=== PATIENT | male | born 1955 | race American Indian/Alaskan Native ===

== ENCOUNTER 2016-09-23 10:08 | Emergency (ER) | payer MEDICAID ==
[2016-09-23 10:15] VITALS: BP 145/49; PULSE 62; RESP 16; TEMP 98.1; O2SAT 95
--- NOTE | 2016-09-23 10:29 | EDPHY ---
H & P Stated Complaint: exacerbated chronic back pain lugging a propane tank last week Time Seen by Provider: 09/23/16 10:20 HPI/ROS: Chief complaint: Low back pain History of present illness: This is a 61-year-old male who presents to the emergency department for evaluation and treatment of low back pain. Patient reports the onset low back pain after dragging 100 lb propane tank through the snow last week. He believes he pulled his back at that time. Since then he has had persistent soreness. He is treating with ibuprofen but pain persists. He states he has a history of chronic back pain from a remote fall onto the back. This feels like a typical exacerbation. He denies other potential precipitating factors including no recent history of direct trauma. Further no report of fevers, or neurologic symptoms including no paresthesias, no weakness or paralysis, no bowel or bladder dysfunction. Review of systems: A 10 point review of systems was obtained and other than described above was negative - Personal History Current Tetanus/Diphtheria Vaccine: Unsure - Medical/Surgical History Hx Asthma: No Hx Chronic Respiratory Disease: Yes Hx Diabetes: No Hx Cardiac Disease: Yes Hx Renal Disease: No Hx Cirrhosis: No Hx Alcoholism: No Hx HIV/AIDS: No Hx Splenectomy or Spleen Trauma: No Other PMH: [place], COPD, psoriasis, hyperlipidemia, HTN,. hernia repair back prob - Social History Smoking Status: Former smoker Additional Social History: No history of IV drug abuse - Physical Exam Exam: General Appearance: Alert, nontoxic. Eyes: Pupils equal and round no injection. Respiratory: Chest is non tender, lungs are clear to auscultation. Cardiac: regular rate and rhythm Gastrointestinal: Abdomen is soft and non tender, no masses, bowel sounds normal. Musculoskeletal: Head is normocephalic, atraumatic. Neck is supple and non tender. The spine is nontender to palpation along its entire length. No crepitus, bony deformity or step-off. There is mild tenderness to the paraspinal muscles in the lumbar region bilaterally. Extremities have full range of motion and are non tender. Patient is ambulating without difficulty. Skin: No rashes or lesions. Neurological: Alert and oriented x4. Strength and sensation intact and symmetrical. Straight leg raise test is negative bilaterally. Constitutional: Initial Vital Signs Temperature (C) 36.7 C 09/23/16 10:12 Heart Rate 62 09/23/16 10:12 Respiratory Rate 16 09/23/16 10:12 Blood Pressure 145/49 H 09/23/16 10:12 O2 Sat (%) 95 09/23/16 10:12 O2 Delivery Mode Room Air Allergies/Adverse Reactions: No Known Allergies Allergy (Verified 09/23/16 10:10) Home Medications: Medication Instructions Recorded Albuterol [Proventil Inhaler HFA 1 puffs IH Q4 PRN 09/04/14 (*)] Aspirin EC [Aspirin EC 81 mg (*)] 81 mg PO DAILY 09/04/14 Fluticasone/Salmeter 250/50Mcg 1 puffs IH BID 09/04/14 [Advair 250/50 (*)] Metoprolol Succinate Xr [Toprol Xl 50 mg PO DAILY 09/04/14 50 mg (*)] Multivitamins [Multivitamin (*)] 1 each PO DAILY 09/04/14 Lisinopril [Zestril 10 mg (*)] 5 mg PO BID 11/12/14 Rosuvastatin Calcium [Crestor 5mg] 5 mg PO DAILY #30 11/14/14 amLODIPine BESYLATE [Norvasc 5 mg 5 mg PO DAILY #30 tab 11/14/14 (*)] Hydrocodone/APAP 5/325 [[place] 1 tab PO Q6H #10 tab 09/23/16 5/325 (*)] Medical Decision Making ED Course/Re-evaluation: Patient seen under the supervision of my secondary supervising physician Dr. Humberto Storey. Patient presents to the emergency department for evaluation of low back pain. Patient has a history of low back pain, this is typical in nature. He is nontoxic. Afebrile and vital signs are stable. He denies any neurologic symptoms. He has a nonfocal neurologic exam. I have offered an evaluation including x-rays, blood studies and urine. He has declined. I will treat him with a short course of pain medicine. He is asked to follow up with his primary care doctor for recheck. Strict return precautions are given. Patient voiced understanding and agreement with plan. Differential Diagnosis: Included but not limited to muscle strain or sprain, herniated intervertebral disc, bony fracture, unlikely cauda equina syndrome or abscess or other lesion Departure - Departure Disposition: Home, Routine, Self-Care Clinical Impression: Back pain Qualifiers: Back pain location: low back pain Chronicity: acute Back pain laterality: bilateral Sciatica presence: without sciatica Qualifier Code: (M54.5) Low back pain Condition: Good Instructions: Low Back Strain (ED) Additional Instructions: Follow-up with your primary care doctor this week for recheck You have been prescribed [place] for pain. [place] contains Tylenol, do not take extra Tylenol/acetaminophen/Apap with it. It is sedating. If symptoms worsen or new symptoms develop including the development of fever, worsening pain, numbness or tingling in the body, difficulty moving your extremities, difficulty controlling your bowel or bladder or other signs or symptoms return immediately to the emergency room Referrals: Albert Linder MD [Primary Care Provider] - As per Instructions Prescriptions: Hydrocodone/APAP 5/325 [[place] 5/325 (*)] 1 tab PO Q6H #10 tab
== END 2016-09-23 10:38 | disposition home or self-care (01) ==
DX: M54.5 Low back pain (principal); I25.2 Old myocardial infarction; J44.9 Chronic obstructive pulmonary disease, unspecified; I10 Essential (primary) hypertension; Z87.891 Personal history of nicotine dependence; Z79.82 Long term (current) use of aspirin

== ENCOUNTER 2016-10-09 10:07 | Emergency (ER) | payer MEDICAID ==
[2016-10-09] MEDS ORDERED: OXYCODONE/APAP 5/325 TAB PO ONE (10:22)
[2016-10-09] MEDS ORDERED: CYCLOBENZAPRINE 10 MG TAB PO ONE (10:23)
[2016-10-09 10:24] VITALS: RESP 18; TEMP 97.9
--- NOTE | 2016-10-09 10:25 | EDPHY ---
H & P HPI/ROS: CHIEF COMPLAINT: Left hip pain HISTORY OF PRESENT ILLNESS: multiple episodes of injury to the left hip over the past 3-4 weeks. The 1st time was a slip and twist injury. The 2nd time he fell on the hip. The 3rd when he was shoveling snow last night. He has a moderate to severe pain of the left hip. It is worse over the greater trochanter. Worse when ambulatory on palpation. Radiates into the buttock. No low back pain. No anesthesia or paresthesia anywhere. No weakness anywhere. No incontinence. No injury elsewhere. He has not yet had an x-ray but he has been evaluated for this. He is taking [id number] medications. No other associated complaints or modifying factors. REVIEW OF SYSTEMS: Ten systems reviewed and are negative unless otherwise noted in the HPI EXAMINATION General Appearance: Alert, no distress Head: normocephalic, atraumatic Eyes: Pupils equal and round, no conjunctival pallor or injection ENT, Mouth: Mucous membranes moist Neck: Normal inspection, supple, non-tender Respiratory: Lungs are clear to auscultation Cardiovascular: Regular rate and rhythm . No murmur pulses intact distally with 2+ DP and PT pulses Gastrointestinal: Abdomen is soft and nontender Back: non-tender, no bony abnormalities Neurological: A&O, nonfocal, normal gait Skin: Warm and dry, no rash Extremities: Nontender, no pedal edema Psychiatric: Mood and affect normal DIFFERENTIAL DIAGNOSES: Including but not limited to Contusion, strain, fracture, dislocation, trochanteric bursitis MDM: 10:20 a.m. multiple mechanical injuries involving the left hip over the past 3 weeks. He has had pain in this area on and off. He reaggravated this this morning and is now concerned about it. He has not yet had an x-ray of this area. He is neuro intact and has range of motion about the hip. X-ray has been ordered. 11:20 a.m. I have re-evaluated the patient. He is feeling somewhat better with the medication but still having too much difficulty ambulating on the hip. X-ray was read as normal. I have ordered a CT scan to rule out occult fracture. 12:00 p.m. notified by radiologist Dr. Nelson that there are no acute findings on CT scan of the hip. I have re-evaluated the patient at this time. He is ambulatory with pain but able to do so. He will be discharged home with pain medication, short course of muscle relaxant not to exceed 7 days. He is to follow up with his primary care physician and orthopedist for definitive care and for any further prescriptions for this. He is also to take anti-inflammatory over-the- counter as needed for this. ER precautions discussed. He is discharged home stable condition. SUPERVISION: This patient was independently evaluated without the aide of supervising physician. Source: Patient Exam Limitations: No limitations - Medical/Surgical History Hx Asthma: No Hx Chronic Respiratory Disease: Yes Hx Diabetes: No Hx Cardiac Disease: Yes Hx Renal Disease: No Hx Cirrhosis: No Hx Alcoholism: No Hx HIV/AIDS: No Hx Splenectomy or Spleen Trauma: No Other PMH: [place], COPD, psoriasis, hyperlipidemia, HTN,. hernia repair back prob - Social History Smoking Status: Former smoker Constitutional: Initial Vital Signs Temperature (C) 97.9 F 10/09/16 10:10 Heart Rate 64 10/09/16 10:10 Respiratory Rate 18 10/09/16 10:10 Blood Pressure 158/86 H 10/09/16 10:10 O2 Sat (%) 94 10/09/16 10:10 O2 Delivery Mode Room Air Allergies/Adverse Reactions: No Known Allergies Allergy (Verified 10/09/16 10:20) Home Medications: Medication Instructions Recorded Albuterol [Proventil Inhaler HFA 1 puffs IH Q4 PRN 09/04/14 (*)] Aspirin EC [Aspirin EC 81 mg (*)] 81 mg PO DAILY 09/04/14 Fluticasone/Salmeter 250/50Mcg 1 puffs IH BID 09/04/14 [Advair 250/50 (*)] Metoprolol Succinate Xr [Toprol Xl 50 mg PO DAILY 09/04/14 50 mg (*)] Multivitamins [Multivitamin (*)] 1 each PO DAILY 09/04/14 Lisinopril [Zestril 10 mg (*)] 5 mg PO BID 11/12/14 Rosuvastatin Calcium [Crestor 5mg] 5 mg PO DAILY #30 11/14/14 amLODIPine BESYLATE [Norvasc 5 mg 5 mg PO DAILY #30 tab 11/14/14 (*)] Hydrocodone/APAP 5/325 [[place] 1 tab PO Q6H #10 tab 09/23/16 5/325 (*)] Cyclobenzaprine [Flexeril 10 MG 10 mg PO TID PRN #15 tab 10/09/16 (*)] oxyCODONE HCL/ACETAMINOPHEN 1 each PO Q4-6PRN PRN #15 tablet 10/09/16 [Percocet 5-325 mg Tablet] Medical Decision Making - Data Points Medications Given: Discontinued Medications Cyclobenzaprine HCl (Flexeril) 10 mg PO EDNOW ONE Stop: 10/09/16 10:24 Last Admin: 10/09/16 10:31 Dose: 10 mg Oxycodone/Acetaminophen (Percocet 5/325) 1 tab PO EDNOW ONE Stop: 10/09/16 10:23 Last Admin: 10/09/16 10:30 Dose: 1 tab Departure - Departure Disposition: Home, Routine, Self-Care Clinical Impression: Hip pain, left Condition: Good Instructions: Hip Pain (ED), Crutch Instructions (ED) Additional Instructions: Follow-up with primary care physician and Orthopedics for definitive care. Will likely need an MRI in the next 1-2 weeks if no improvement or return to the ER for weakness, numbness, tingling Referrals: Patient,NotPresent [Unknown] - As per Instructions Albert Alarcon MD [Medical Doctor] - As per Instructions Prescriptions: Cyclobenzaprine [Flexeril 10 MG (*)] 10 mg PO TID PRN #15 tab PRN Reason: Spasms oxyCODONE HCL/ACETAMINOPHEN [Percocet 5-325 mg Tablet] 1 each PO Q4-6PRN PRN # 15 tablet PRN Reason: Pain, Breakthrough
[2016-10-09 12:36] VITALS: BP 128/86; PULSE 73; O2SAT 95
== END 2016-10-09 12:52 | disposition home or self-care (01) ==
LOC: EDUNIT#
DX: S79.912A Unspecified injury of left hip, initial encounter (principal); I25.2 Old myocardial infarction; J44.9 Chronic obstructive pulmonary disease, unspecified; I10 Essential (primary) hypertension; Z87.891 Personal history of nicotine dependence; Z79.82 Long term (current) use of aspirin; W18.39XA Other fall on same level, initial encounter; Y93.89 Activity, other specified

== ENCOUNTER 2017-01-20 13:22 | Inpatient (IN) | payer MEDICAID ==
[2017-01-20] MEDS ORDERED: ASPIRIN 81 MG CHEWABLE TAB PO ONE (13:43)
[2017-01-20] MEDS ORDERED: NITROGLYCERIN 0.4 MG BTL SL PRN ×2 (13:43→16:17)
[2017-01-20] MEDS ORDERED: NS 1,000 ML IV ONE (13:43)
--- NOTE | 2017-01-20 13:43 | EDPHY ---
H & P Stated Complaint: substernal cp since 829/cardiac hx HPI/ROS: HPI CHIEF COMPLAINT: Chest pain HISTORY OF PRESENT ILLNESS: This patient very pleasant 61-year-old male, presents emergency room by private vehicle for chest pain he tells me around 8 this morning developed chest pain is across his precordium and substernal, with associated nausea and diaphoresis. Patient tells me that he has persistent pain across his chest. Upon arrival here in emergency room I did Greet him and ER room 11. He had an immediate EKG upon arrival. His EKG shows an ST elevation inferior leads reciprocal changes with severe ST depression in anterior leads V1 V2 V3. Past Medical History: Coronary artery disease without stents, COPD, hypertension, hyperlipidemia Past Surgical History: No recent surgical history Social History: Denies daily use of drugs alcohol tobacco products Family History: Noncontributory ROS REVIEW OF SYSTEMS: A comprehensive 10 point review of systems is otherwise negative aside from elements mentioned in the history of present illness. Exam Constitutional triage nursing summary reviewed, vital signs reviewed, awake/ alert. Eyes normal conjunctivae and sclera, EOMI, PERRLA. HENT normal inspection, atraumatic, moist mucus membranes, no epistaxis, neck supple/ no meningismus, no raccoon eyes. Respiratory clear to auscultation bilaterally, normal breath sounds, no respiratory distress, no wheezing. Cardiovascular rate normal, regular rhythm, no murmur, no edema, distal pulses normal. Gastrointestinal soft, non-tender, no rebound, no guarding, normal bowel sounds, no distension, no pulsatile mass. Genitourinary no CVA tenderness. Musculoskeletal no midline vertebral tenderness, full range of motion, no calf swelling, no tenderness of extremities, no meningismus, good pulses, neurovascularly intact. Skin pink, warm, & dry, no rash, skin atraumatic. Neurologic awake, alert and oriented x 3, AAOx3, moves all 4 extremities equally, motor intact, sensory intact, CN II-XII intact, normal cerebellar, normal vision, normal speech. Psychiatric normal mood/affect. Heme/Lymph/Immune no lymphadenopathy. Differential diagnosis includes but is not limited to: ACS, atypical chest pain , pneumothorax, pneumonia, pulmonary embolism, aortic dissection, congestive heart failure, tumor, musculoskeletal pain, esophageal pain, GERD, peptic ulcer disease, pancreatitis Medical Decision Making: Plan for this patient this patient shows an ST elevation PR. Plan for immediate cardiac catheterization with Dr. Hernandez. Re-evaluation: EKG interpretation by me on record in [employer] system. Impression time of EKG 13 45 this shows an acute ST-elevation PR inferior leads with reciprocal ST depression V1 V2 V3 down the anterior leads. This an acute myocardial infarction ST elevation PR. 1353: Cardiac catheterization lab has been activated. STEMI alert has been activated. Dr. Hernandez is at bedside. Patient be taken to the lab nurse for emergent cardiac catheterization for his ST elevation PR. Critical Care: Total Critical Care Time Spent Managing this Patient: 30Minutes. This time was spent Exclusively with this patient. This Care was exclusive of procedures. The Organ System/life at risk was cardiac This Patient was in Critical Condition because ST elevation PR. Source: Patient - Personal History Current Tetanus/Diphtheria Vaccine: No - Medical/Surgical History Hx Asthma: No Hx Chronic Respiratory Disease: Yes Hx Diabetes: No Hx Cardiac Disease: Yes Hx Renal Disease: No Hx Cirrhosis: No Hx Alcoholism: No Hx HIV/AIDS: No Hx Splenectomy or Spleen Trauma: No Other PMH: [place], COPD, psoriasis, hyperlipidemia, HTN,. hernia repair back prob - Social History Smoking Status: Former smoker Constitutional: Initial Vital Signs Temperature (C) 36.6 C 01/20/17 13:24 Heart Rate 93 01/20/17 13:24 Respiratory Rate 20 01/20/17 13:24 Blood Pressure 129/82 H 01/20/17 13:24 O2 Sat (%) 98 01/20/17 13:24 O2 Delivery Mode Room Air Allergies/Adverse Reactions: No Known Allergies Allergy (Verified 01/20/17 13:23) Home Medications: Medication Instructions Recorded Albuterol [Proventil Inhaler HFA 1 puffs IH Q4 PRN 09/04/14 (*)] Aspirin EC [Aspirin EC 81 mg (*)] 81 mg PO DAILY 09/04/14 Fluticasone/Salmeter 250/50Mcg 1 puffs IH BID 09/04/14 [Advair 250/50 (*)] Metoprolol Succinate Xr [Toprol Xl 50 mg PO DAILY 09/04/14 50 mg (*)] Multivitamins [Multivitamin (*)] 1 each PO DAILY 09/04/14 Lisinopril [Zestril 10 mg (*)] 5 mg PO BID 11/12/14 Rosuvastatin Calcium [Crestor 5mg] 5 mg PO DAILY #30 11/14/14 amLODIPine BESYLATE [Norvasc 5 mg 5 mg PO DAILY #30 tab 11/14/14 (*)] Hydrocodone/APAP 5/325 [[place] 1 tab PO Q6H #10 tab 09/23/16 5/325 (*)] Cyclobenzaprine [Flexeril 10 MG 10 mg PO TID PRN #15 tab 10/09/16 (*)] oxyCODONE HCL/ACETAMINOPHEN 1 each PO Q4-6PRN PRN #15 tablet 10/09/16 [Percocet 5-325 mg Tablet] Departure - Departure Disposition: [facility] Inpatient Acute Clinical Impression: STEMI (ST elevation myocardial infarction) Qualifiers: Involved coronary artery: unspecified coronary artery Qualified Code(s): I21.3 - ST elevation (STEMI) myocardial infarction of unspecified site Condition: Critical Referrals: NONE *PRIMARY CARE P,. [Primary Care Provider] - As per Instructions
[2017-01-20] MEDS ORDERED: LIDOCAINE 1% 300 MG/30 ML SDV ONE ×2 (13:50→14:32)
[2017-01-20] MEDS ORDERED: MIDAZOLAM 2 MG/2 ML VIAL ONE ×4 (13:51→14:38)
[2017-01-20] MEDS ORDERED: fentaNYL 100 MCG/2 ML INJ ONE (13:51)
[2017-01-20] MEDS ORDERED: IOPAMIDOL (ISOVUE-370) 150 ML BTL IV ONE ×2 (13:52→15:31)
[2017-01-20 13:56] LABS: % IMMATURE GRANULYOCYTES 0.5 % (0.0-1.1); ABSOLUTE IMMATURE GRANULOCYTES 0.06 10^3/uL (0.00-0.10); ADD DIFF? NO; ADD MORPH? NO; ADD SCAN? NO; ATYPICAL LYMPHOCYTE FLAG 0 (0-99); FRAGMENT RBC FLAG 0 (0-99); HEMATOCRIT 48.6 % (40.0-51.0); HEMOGLOBIN 17.3 g/dL (13.7-17.5); LEFT SHIFT FLG 0 (0-99); LIPEMIA HEMOLYSIS FLAG 90 (0-99); MEAN CELL HEMOGLOBIN 33.5 pg (27.9-34.1); MEAN CELL HEMOGLOBIN CONCENTR. 35.6 g/dL (32.4-36.7); MEAN CELL VOLUME 94.2 fL (81.5-99.8); PLATELET CLUMPS FLAG 0 (0-99); PLATELET COUNT 319 10^3/uL (150-400); RED BLOOD CELL COUNT 5.16 10^6/uL (4.40-6.38); RED CELL DISTRIBUTION WIDTH 13.5 % (11.5-15.2)
--- NOTE | 2017-01-20 13:59 | CPEKG ---
Heart Rate: 84 RR Interval: 714 P-R Interval: 196 QRSD Interval: 100 QT Interval: 336 QTC Interval: 398 P Doyline: 60 QRS Doyline: 90 T Wave Doyline: 94 EKG Severity - ABNORMAL ECG - EKG Impression: SINUS RHYTHM EKG Impression: MULTIFORM VENTRICULAR PREMATURE COMPLEXES EKG Impression: INFEROPOSTERIOR INFARCT, ACUTE Electronically Signed By: Max Chopra 23-Jan-2017 12:05:23
[2017-01-20 14:06] LABS: INR 0.94 (0.83-1.16); PROTIME(PATIENT) 12.5 SEC (12.0-15.0)
[2017-01-20 14:07] LABS: APTT 25.8 SEC (23.0-38.0)
[2017-01-20 14:09] LABS: ALANINE AMINOTRANSFERASE 44 IU/L (21-72); ALKALINE PHOSPHATASE 75 IU/L (38-126); ANION GAP 13 mEq/L (8-16); ASPARTATE AMINOTRANSFERASE 55 IU/L (17-59); BILIRUBIN,TOTAL 0.9 mg/dL (0.1-1.4); BILIRUBIN-CONJUGATED 0.4 mg/dL (0.0-0.5); BILIRUBIN-UNCONJUGATED 0.5 mg/dL (0.0-1.1); CALCIUM 10.1 mg/dL (8.5-10.4); CARBON DIOXIDE 20 mEq/l (22-31); CHLORIDE 104 mEq/L (97-110); CREATININE 1.3 mg/dL (0.7-1.3); GLOMERULAR FILTRATION RATE 56; GLUCOSE 127 mg/dL (70-100); MAGNESIUM 2.3 mg/dL (1.6-2.3); POTASSIUM 4.9 mEq/L (3.5-5.2); SODIUM 137 mEq/L (134-144); TOTAL PROTEIN 8.3 g/dL (6.3-8.2)
[2017-01-20] MEDS ORDERED: NITROGLYCERIN 1,500 MCG/15 ML VIAL MISC ONE (14:17)
[2017-01-20] MEDS ORDERED: BIVALIRUDIN 250 MG/5 ML VIAL IV ONE ×2 (14:17→15:18)
[2017-01-20] MEDS ORDERED: ATROPINE SULFATE 1 MG/10 ML SYR ONE ×2 (14:19→14:25)
[2017-01-20 14:20] LABS: CK-MB INTERPRETATION NEGATIVE (NEGATIVE); TROPONIN I 0.166 ng/mL (0-0.034)
[2017-01-20] MEDS ORDERED: DOPamine/DEXTROSE/250 ML BAG IV ONE (14:20)
[2017-01-20] MEDS ORDERED: EPINEPHrine 1 MG/10 ML SYR IVP ONE ×3 (14:31→15:27)
[2017-01-20] MEDS ORDERED: ONDANSETRON 4 MG/2 ML VIAL ONE (14:36)
[2017-01-20] MEDS ORDERED: FLUMAZENIL 0.5 MG/5 ML MDV IVP ONE (14:43)
[2017-01-20] MEDS ORDERED: CALCIUM CHLORIDE 1 GM/10 ML INJ ONE (15:00)
[2017-01-20] MEDS ORDERED: ETOMIDATE 40 MG/20 ML INJ ONE (15:00)
[2017-01-20] MEDS ORDERED: PROPOFOL 200 MG/20 ML VIAL ONE (15:02)
[2017-01-20] MEDS ORDERED: VECURONIUM BROMIDE 10 MG VIAL ONE (15:05)
--- NOTE | 2017-01-20 15:09 | GHP ---
[f rep st] HISTORY AND PHYSICAL DATE OF ADMISSION: 01/20/2017 INDICATIONS: Acute inferior wall myocardial infarction. HISTORY OF PRESENT ILLNESS: The patient is a pleasant 61-year-old male. He has known coronary xuan ry disease. He has a history of a distant myocardial infarction. Previous angiography performed at this institution several years ago, in October of 2014, demonstrated an occluded collateralized right coronary artery with intermediate disease in the LAD and circumflex distributions. Additionally, joanna salguero has a history of hypertension, hyperlipidemia, and COPD. He was doing well until earlier today. He developed the abrupt onset of precordial chest discomfort. This was graded 10/10 in intensity. It had started about 8 o'clock this morning. At that time, he was at rest. He came to the emergenc y department, arrival time was 1:31. His initial ECG demonstrated sinus rhythm at 84 beats per anum te with 3.[address] elevation with anterolateral reciprocal changes. PAST MEDICAL HISTORY: 1. Coronary artery disease as described above. 2. Hypertension. 3. Hyperlipidemia. 4. COPD. 5. Psoriasis. ALLERGIES: None. MEDICATIONS: Include aspirin, rosuvastatin, metoprolol, and lisinopril as well as amlodipine. He t ook all of these medications today. FAMILY HISTORY: Apparently, his mother had coronary artery disease. SOCIAL HISTORY: Does drink heavily. He admits to 7 drinks on most days. He is a nonsmoker with oc casional marijuana use. He lives up in [place]. He is on disability currently. REVIEW OF SYSTEMS: Otherwise negative with the exception of the above positives. PAST SURGICAL HISTORY: Significant only for previous stenting and prior hernia repair. PHYSICAL EXAMINATION: VITAL SIGNS: Blood pressure 118/74 with a mean of 88, room air saturations o f 98%. Heart rate 93, and respiratory rate 16. GENERAL: He does not appear to be in acute distres s. At the time of my physical examination, he was pain-free. HEENT: No jugular venous distention, no adenopathy or thyromegaly. RESPIRATORY: He is breathing easily, using no accessory muscles. O n auscultation, he has clear lung henao bilaterally. CARDIAC: Precordial inspection is unremarkab le. PMI is nondisplaced. On auscultation, he has a regular rate and rhythm with a 1/6 holosystolic murmur at the left sternal border. ABDOMEN: Soft, nontender, he has normoactive bowel sounds with out masses, hepatosplenomegaly or palpable aorta. EXTREMITIES: Well perfused, warm and dry. He abad s no lower extremity edema. NEUROLOGIC: He is alert, oriented, with a pleasant mood and affect. DATABASE: His ECG is as noted above. IMPRESSION: The patient is 61 years old. He presents with an acute myocardial infarction. PLAN: Is to take him emergently to cardiac catheterization. /[id number]/MODL
--- NOTE | 2017-01-20 15:15 | EDPHY ---
Inpatient Procedure Narrative: 1511: I was asked to come and evaluate the patient cardiac catheterization suite for emergent intubation. The patient was getting a cardiac catheterization he was noted to be in V-tach and was minimally responsive. They halted the cardiac catheterization procedure and the patient was emergently intubated by myself. RSI medications were given. Was given 20 mg IV etomidate. A 7.0 endotracheal tube was passed with direct visualization of the cords with a MAC 4 blade. This patient tolerated this procedure well. Tube was confirmed bilateral breath sounds. Humidified air. Good pulse ox. Chest x-ray is pending at this time. I did have direct visualization of the tube passing the cords. Critical Care: Total Critical Care Time Spent Managing this Patient: 30 Minutes. This time was spent Exclusively with this patient. This Care was exclusive of procedures. The Organ System/life at risk was resp failure This Patient was in Critical Condition because cardiopulmonary failure
[2017-01-20] MEDS ORDERED: EPTIFIBATIDE 20 MG/10 ML VIAL IVP ONE (15:18)
[2017-01-20] MEDS ORDERED: EPTIFIBATIDE 200 MG/100 ML BOTTLE IV ONE (15:18)
[2017-01-20] MEDS ORDERED: EPTIFIBATIDE 100 ML IV SCH (15:30)
[2017-01-20] MEDS ORDERED: PHENYLEPHRINE 10 MG/ML SDV ONE (15:36)
[2017-01-20] MEDS ORDERED: PHENYLEPHRINE HCL 100 MCG/ML SYR ONE (15:36)
[2017-01-20 15:59] LABS: BASE EXCESS -14.5 mEq/L (-2.5-2.5); BICARBONATE 16 mEq/L (22-26); MEASURED OXYGEN SATURATION 74 % (92-95); PCO2 55 mmHg (34-38); PO2 58 mmHg (65-75); TCO2 17 mEq/L (23-27)
[2017-01-20 16:00] LABS: END TIDAL CO2 27; O2 CONCENTRATIION 100 % (0-100); P/F RATIO 58 RATIO; PATIENT RATE 16; SIMV YES
[2017-01-20] MEDS ORDERED: NOREPINEPHRINE/NS 500 ML IV ONE (16:00)
[2017-01-20] MEDS ORDERED: PHENYLEPHRINE HCL 50 MG in NS 250 ML IV SCH (16:00)
[2017-01-20 16:01] LABS: PRESSURE SUPPORT 7
[2017-01-20] MEDS ORDERED: ASPIRIN EC 325 MG TAB PO ONE (16:17)
[2017-01-20] MEDS ORDERED: TICAGRELOR 90 MG TAB PO ONE ×2 (16:17→16:27)
[2017-01-20] MEDS ORDERED: TEMAZEPAM 15 MG CAP PO PRN (16:17)
[2017-01-20] MEDS ORDERED: ATROPINE SULFATE 1 MG/10 ML SYR IVP PRN (16:17)
[2017-01-20] MEDS ORDERED: ONDANSETRON 4 MG/2 ML VIAL IVP PRN (16:17)
[2017-01-20] MEDS ORDERED: HEPARIN 10,000 UNIT/10 ML MDV IVP PRN (16:18)
[2017-01-20 16:29] LABS: IONIZED CALCIUM 1.08 MMOL/L (1.12-1.30)
--- NOTE | 2017-01-20 16:32 | PDDXCAT ---
Diagnostic Cath Note - . Date: 01/20/17 Knifeman: Diane Pedicurist: Mary Indication: other (Acute, inferior wall ST-elevation myocardial infarction.) - Procedure Access: right groin Procedure: coronary angiography - Materials Left Heart Cath size: 6F Left Heart Cath materials: standard multipack (JL4, JR4, pigtail) - Findings-Left Heart Catheterization LM: Large caliber vessel with normal in appearance with appropriate bifurcation into the LAD and circumflex distribution. LAD: Large caliber transapical vessel. 2 individual diagonal branches identified. D1 is a small vessel with an ostial 50% lesion. D2 is a large caliber vessel with a mid 50% stenosis. The remainder of the LAD demonstrates luminal irregularities. LCX: 100% proximally occluded with the appearance of thrombus. RCA: Chronic occlusion. Collateralized from the left system. This is known from previous angiography. Complications: None. Estimated blood loss: <50ml Assessment: 1. Acute inferior wall myocardial infarction. 2. Culprit vessel is the circumflex which is 100% proximally occluded with the appearance of thrombus. The patient has a known chronic occlusion of the right coronary artery again demonstrated on this study. 3. Shortly after injection of left main system the patient developed high-grade AV block and cardiogenic shock. 4. Interventional Cardiology was emergently consulted for percutaneous intervention. Plan: As above. Intervention: See the separately dictated note for the intervention of the circumflex coronary artery. Patient Problems: Problems Problem Status Onset STEMI (ST elevation myocardial infarction) Acute Spell of dizziness Acute
[2017-01-20 16:38] LABS: BASE EXCESS -8.9 mEq/L (-2.5-2.5); BICARBONATE 17 mEq/L (22-26); HEMOGLOBIN ABG 14.6 gm/dL (14.5-17.3); IONIZED CALCIUM 1.08 MMOL/L (1.12-1.30); MEASURED OXYGEN SATURATION 83 % (92-95); PCO2 38 mmHg (34-38); PO2 57 mmHg (65-75); SODIUM ABG 133 mEq/L (137-146); TCO2 18 mEq/L (23-27)
[2017-01-20 16:44] LABS: O2 CONCENTRATIION 100 % (0-100); P/F RATIO 57 RATIO; PATIENT RATE 24; SIMV YES
[2017-01-20 16:45] LABS: PRESSURE SUPPORT 7
[2017-01-20] MEDS ORDERED: ALTEPLASE 2 MG VIAL IVP PRN (17:07)
[2017-01-20] MEDS ORDERED: FUROSEMIDE 40 MG/4 ML VIAL IVP ONE ×2 (17:08→19:45)
--- NOTE | 2017-01-20 17:29 | CPIP ---
[f rep st] INVASIVE CARDIAC PROCEDURE DATE OF PROCEDURE: 01/20/2017 PROCEDURES: 1. Coronary angiography. 2. Stenting of circumflex coronary artery. 3. Thrombectomy of circumflex coronary artery. 4. Placement of intra-aortic balloon pump. 5. Placement of temporary pacemaker wire. INDICATION: 1. Acute inferior ST-segment elevation myocardial infarction. 2. Cardiogenic shock. 3. Heart block access and coronary angiography access and coronary angiography was performed by Dr. Jasper Contreras. Coronary angiography was notable for a MACHINE GREASER of the right coronary artery as well as a n acute occlusion of the circumflex coronary artery. I was consulted to perform percutaneous stock ry intervention on the circumflex coronary artery. PERCUTANEOUS CORONARY INTERVENTION OF THE CIRCUMFLEX CORONARY ARTERY: A 6-Kazakh EBU 3.5 catheter w as advanced through the left main coronary artery and images obtained. The left main coronary arter y bifurcated into an LAD and circumflex coronary arteries. The left main coronary artery appeared n ormal. The circumflex coronary artery was 100% occluded in the mid vessel suggestive of acute throm botic occlusion. A Luge wire was placed in the distal vessel and position verified by angiography. The lesion was pre-dilated with a 2.5 x 12 Emerge balloon. Followup angiography demonstrated reduc ed EDWIN flow and evidence of thrombus burden. A Pronto catheter was then used to perform thrombecto my. Post-thrombectomy we had druze of EDWIN-3 flow with significant residual stenosis in the m id circumflex coronary artery. A 2.5 x 12 Synergy drug-eluting stent was then placed across the les ion and deployed. Followup angiography demonstrated EDWIN-3 flow. No residual stenosis. At this ti va, the patient proceeded to pulseless electrical activity. CPR was initiated, followed by intubati on. Angiography postresuscitative measures demonstrated thrombus burden in the left main and circum flex coronary arteries with EDWIN-1 flow in the circumflex coronary artery. Thrombectomy was then pe rformed on the left main and circumflex coronary artery followed by initiation of Integrilin therapy . A second Luge wire was placed in the distal circumflex coronary artery. The first Luge wire was then withdrawn and thrombectomy once again performed. The patient had EDWIN-3 flow in the circumflex coronary artery, had EDWIN-3 flow in the proximal OM2 coronary artery, and in the mid OM2 coronary a rtery and the distal OM2 coronary artery had EDWIN-2 flow. Placement of intra-aortic balloon pump. An intra-aortic balloon pump was placed secondary to hemodynamic instability. The 6-Kazakh sheath w as exchanged for an 8-Kazakh sheath via exchange wire technique. Intra-aortic balloon pump was adva nced from the right common femoral artery into the aorta and position verified by angiography. Intr a-aortic balloon pump was initiated with stabilization of hemodynamics. Temporary pacemaker wire pl acement. A 5-Kazakh introducer sheath was placed selectively into the right common femoral vein via modified Seldinger technique. A temporary pacemaker wire was advanced into the right ventricle unt il capture obtained. COMPLICATIONS: None. CONCLUSIONS: 1. 2-vessel coronary artery disease. 2. Status post successful percutaneous coronary intervention of the circumflex coronary artery sherrill Henao drug-eluting stent. 3. Status post successful placement of intra-aortic balloon pump. 4. Status post successful placement of temporary pacemaker wire. /[id number]/MODL
[2017-01-20 17:44] LABS: BICARBONATE 14 mEq/L (22-26); MEASURED OXYGEN SATURATION 82 % (92-95); PCO2 37 mmHg (34-38); PO2 60 mmHg (65-75); TCO2 15 mEq/L (23-27)
[2017-01-20 17:50] LABS: O2 CONCENTRATIION 100 % (0-100); P/F RATIO 60 RATIO; SIMV YES
[2017-01-20 17:51] LABS: END TIDAL CO2 37; PATIENT RATE 24; PRESSURE SUPPORT 7
[2017-01-20] MEDS: fentaNYL/NACL 100 ML IV SCH (18:00)
--- NOTE | 2017-01-20 18:10 | GCON ---
[f rep st] CONSULTATION PULMONARY/CRITICAL CARE CONSULTATION DATE OF CONSULTATION: 01/20/2017 REFERRING PHYSICIAN: Max Hernandez MD REASON FOR REFERRAL: Evaluation and management of acute hypoxemic and hypercapnic respiratory failu re. HISTORY: The patient is a 61-year-old male with a known history of coronary artery disease status p ost myocardial infarction with known chronically occluded right coronary artery. Today, he develope d acute chest pain. He presented to the emergency department. He had ST elevations and was taken t o catheterization lab, where he was found to have an occluded circumflex. This was stented by Dr. Marj Ordoñez. In the course of the procedure, the patient also developed a clot in the left main, which wa s suctioned out. The course in the catheterization lab was quite russ, with 2 arrests requiring br ief periods of CPR. The patient was intubated and started on epinephrine. A pacemaker was also aman suyapa, followed by an intra-aortic balloon pump. PAST MEDICAL HISTORY: 1. Coronary artery disease. 2. Hypertension. 3. COPD. 4. Psoriasis. MEDICATIONS: At the time of admission include aspirin, rosuvastatin, metoprolol, lisinopril, amlodi pine. ALLERGIES: None. SOCIAL HISTORY: The patient drinks heavily, about 7 drinks most days. He does not smoke. He is on disability. FAMILY HISTORY: Unremarkable. REVIEW OF SYSTEMS: Unobtainable. PHYSICAL EXAMINATION: GENERAL: The patient is intubated and sedated. He has received paralytics a s well as sedation. His blood pressure is 110/70 with a heart rate of 120. Oxygen saturations are 86% on 100% oxygen. He is afebrile. HEENT: Normocephalic and atraumatic. No icterus. NECK: No JVD. Trachea is midline. CHEST: He has rales bilaterally. CARDIAC: Regular, tachycardia, withou t murmur. ABDOMEN: Soft, nontender. Bowel sounds are present. EXTREMITIES: No clubbing or cyano sis. He has a mild livedo pattern on his skin peripherally. There is no edema. NEURO: The patien t is unresponsive, although he is starting to have some myoclonic twitching. LABORATORY: White blood count 13.3 with a hemoglobin of 17.3, platelet count is 319. Chemistry katelyn up is remarkable for a BUN of 29 with a creatinine of 1.3, ionized calcium is 1.08. Troponin is 0.1 7, BNP is 313. Glucose is 127. Arterial blood gas shows a pH of 7.27, up from 7.08. PO2 is 57, CO 2 is 38, and bicarbonate is 18 on IMV with a rate of 24, tidal volume of 600, and 100% oxygen with P EEP of 10. Chest x-ray shows extensive diffuse bilateral alveolar interstitial infiltrates consiste nt with edema. The endotracheal tube is appropriately positioned. Images reviewed by me. ASSESSMENT: 1. Status post acute myocardial infarction with stenting. 2. Brief arrest during stenting. 3. Acute hypoxemic and hypercapnic respiratory failure. This is likely on the basis of cardiogenic shock, now with extensive pulmonary edema after receiving 3 L of fluids. His oxygenation is margin al despite 100% oxygen. 4. Tachycardia. This is likely a response to his acute illness as well as pressors. He was on epi nephrine, but is now on norepinephrine and phenylephrine. RECOMMENDATIONS: Continue mechanical ventilation as well as postprocedure care. I will try to incr ease his PEEP to see if he tolerates that. I will also give him some Lasix to try to help reduce hi s pulmonary edema. His status is quite tenuous and his prognosis is guarded. 40 minutes of critical care time, adjusting critical care time after I was called, asked to see the patient for his severe hypoxemia refractory to intubation. /[id number]/MODL
[2017-01-20 18:22] LABS: INR 3.55 (0.83-1.16); PROTIME(PATIENT) 36.1 SEC (12.0-15.0)
[2017-01-20] MEDS ORDERED: PROPOFOL/EMULSION 1,000 MG/100 ML BOTTLE IV ONE (18:29)
[2017-01-20] MEDS: PROPOFOL/EMULSION 100 ML IV SCH (18:30)
[2017-01-20] MEDS ORDERED: fentanYL/NACL/100 ML BAG IV ONE (18:33)
[2017-01-20] MEDS ORDERED: NA BICARBONATE 50 MEQ/50 ML VIAL ONE (18:39)
[2017-01-20] MEDS ORDERED: SODIUM BICARBONATE 50 MEQ/50 ML SYR IVP ONE (18:45)
[2017-01-20 18:58] LABS: APTT 116.4 SEC (23.0-38.0)
[2017-01-20] MEDS ORDERED: D50W 25 GM/50 ML SYR IVP PRN (19:04)
[2017-01-20] MEDS ORDERED: D5W 1,000 ML IV SCH (19:04)
[2017-01-20 19:12] LABS: BASE EXCESS -8.6 mEq/L (-2.5-2.5); BICARBONATE 16 mEq/L (22-26); MEASURED OXYGEN SATURATION 87 % (92-95); PCO2 32 mmHg (34-38); PO2 61 mmHg (65-75); TCO2 17 mEq/L (23-27)
[2017-01-20 19:13] LABS: O2 CONCENTRATIION 100 % (0-100); P/F RATIO 61 RATIO; PRESSURE SUPPORT 7; SIMV YES
[2017-01-20] MEDS ORDERED: NOREPINEPHRINE/NS 500 ML IV SCH ×2 (19:30→20:00)
[2017-01-20] MEDS: HEPARIN/DEXTROSE 500 ML IV SCH (20:00)
[2017-01-20 21:00] LABS: BASE EXCESS -11.4 mEq/L (-2.5-2.5); BICARBONATE 14 mEq/L (22-26); MEASURED OXYGEN SATURATION 89 % (92-95); PCO2 32 mmHg (34-38); PO2 68 mmHg (65-75); TCO2 15 mEq/L (23-27)
[2017-01-20] MEDS: INSULIN REGULAR HUMAN 100 UNIT in NS 100 ML IV SCH (21:00)
[2017-01-20 21:03] LABS: END TIDAL CO2 27; O2 CONCENTRATIION 100 % (0-100); P/F RATIO 68 RATIO; SIMV YES
[2017-01-20 21:04] LABS: PATIENT RATE 26; PIP 33; PRESSURE SUPPORT 7
[2017-01-20] MEDS: SODIUM BICARBONATE 150 MEQ in NS 1,000 ML IV SCH ×2 (22:00→22:30)
[2017-01-20] MEDS ORDERED: FUROSEMIDE 40 MG/4 ML VIAL ONE (22:16)
[2017-01-20] MEDS: FAMOTIDINE 20 MG/NACL 50 ML IV SCH (23:13)
[2017-01-20] MEDS: CHLORHEXIDINE GLUCONATE 15 ML UDL PO SCH (23:33)
[2017-01-21 01:14] LABS: BASE EXCESS -8.6 mEq/L (-2.5-2.5); BICARBONATE 15 mEq/L (22-26); MEASURED OXYGEN SATURATION 98 % (92-95); PCO2 25 mmHg (34-38); PO2 108 mmHg (65-75); TCO2 16 mEq/L (23-27)
[2017-01-21 01:15] LABS: SIMV YES
[2017-01-21 01:16] LABS: END TIDAL CO2 27; O2 CONCENTRATIION 100 % (0-100); P/F RATIO 108 RATIO; PATIENT RATE 0; PRESSURE SUPPORT 7
[2017-01-21] MEDS: PROPOFOL/EMULSION 100 ML IV SCH ×3 (02:59→22:40)
[2017-01-21 04:12] LABS: % IMMATURE GRANULYOCYTES 0.6 % (0.0-1.1); ABSOLUTE IMMATURE GRANULOCYTES 0.08 10^3/uL (0.00-0.10); ADD DIFF? NO; ADD MORPH? NO; ADD SCAN? NO; ATYPICAL LYMPHOCYTE FLAG 0 (0-99); FRAGMENT RBC FLAG 0 (0-99); HEMATOCRIT 35.3 % (40.0-51.0); HEMOGLOBIN 12.4 g/dL (13.7-17.5); LEFT SHIFT FLG 0 (0-99); LIPEMIA HEMOLYSIS FLAG 90 (0-99); MEAN CELL HEMOGLOBIN 33.5 pg (27.9-34.1); MEAN CELL HEMOGLOBIN CONCENTR. 35.1 g/dL (32.4-36.7); MEAN CELL VOLUME 95.4 fL (81.5-99.8); MEAN PLATELET VOLUME 10.1 fL (8.7-11.7); PLATELET CLUMPS FLAG 0 (0-99); PLATELET COUNT 268 10^3/uL (150-400); RED CELL DISTRIBUTION WIDTH 13.6 % (11.5-15.2)
[2017-01-21 04:27] LABS: ANION GAP 10 mEq/L (8-16); CALCIUM 6.9 mg/dL (8.5-10.4); CARBON DIOXIDE 18 mEq/l (22-31); CHLORIDE 107 mEq/L (97-110); CREATININE 1.8 mg/dL (0.7-1.3); GLOMERULAR FILTRATION RATE 38; GLUCOSE 193 mg/dL (70-100); MAGNESIUM 1.7 mg/dL (1.6-2.3); POTASSIUM 4.2 mEq/L (3.5-5.2); SODIUM 135 mEq/L (134-144)
[2017-01-21] MEDS: EPINEPHrine 2 MG in D5W 500 ML IV SCH ×2 (04:50→08:51)
[2017-01-21] MEDS: TICAGRELOR 90 MG TAB PO SCH ×2 (04:50→20:30)
[2017-01-21] MEDS ORDERED: PROTOCOL MAGNESIUM 1 DOSE IV PRN (06:34)
[2017-01-21] MEDS ORDERED: PROTOCOL POTASSIUM 1 DOSE MISC PRN (06:34)
[2017-01-21] MEDS ORDERED: MAGNESIUM SULF 1 GM/DEXTROSE 100 ML IV ONE (06:35)
[2017-01-21] MEDS: NOREPINEPHRINE BITARTRATE 16 MG in NS 250 ML IV SCH ×2 (06:37→16:26)
[2017-01-21 07:42] LABS: BASE EXCESS -4.4 mEq/L (-2.5-2.5); BICARBONATE 18 mEq/L (22-26); MEASURED OXYGEN SATURATION 99 % (92-95); PCO2 25 mmHg (34-38); PO2 129 mmHg (65-75); TCO2 18 mEq/L (23-27)
[2017-01-21 07:43] LABS: P/F RATIO 129 RATIO; SIMV YES
[2017-01-21 07:44] LABS: END TIDAL CO2 27; O2 CONCENTRATIION 100 % (0-100); PATIENT RATE 26; PRESSURE SUPPORT 7
[2017-01-21] MEDS: FAMOTIDINE 20 MG/NACL 50 ML IV SCH ×2 (08:19→20:27)
[2017-01-21] MEDS: CHLORHEXIDINE GLUCONATE 15 ML UDL PO SCH ×2 (08:19→21:09)
[2017-01-21] MEDS: PHENYLEPHRINE HCL 50 MG in NS 250 ML IV SCH ×3 (08:39→22:39)
--- NOTE | 2017-01-21 08:47 | PDINTPN ---
Advertising Designer Progress Note Assessment/Plan: Assessment/plan: * Acute hypoxemic and hypercarbic respiratory failure-secondary to pulmonary edema and status post cardiac arrest. Stable on mechanical ventilation with low FiO2 -hold assessment for extubation for now * Coronary disease/status post myocardial infarction * Status post multiple coronary artery stents * Chronic obstructive pulmonary disease * History of hypertension * Shock-on multiple pressors including epinephrine, norepinephrine and phenylephrine * Intra-aortic balloon pump * Tachycardia * Sedation-adequate * Nutrition-on hold 35 minutes of critical care time spent with the patient. Case discussed with Nursing and Respiratory therapy Subjective: Sedated on mechanical ventilation Objective: Vital Signs Temp Pulse Resp BP Pulse Ox 37.1 C 85 27 H 99/56 L 100 01/21/17 07:58 01/21/17 07:58 01/21/17 07:58 01/21/17 07:58 01/21/17 07:58 Laboratory Results 01/21/17 04:00 01/21/17 04:00 01/20/17 01/21/17 01/22/17 05:59 05:59 05:59 Intake Total 4414.7 Output Total 2400 Balance 2014.7 PT 36.1 SEC (12.0-15.0) H D 01/20/17 18:07 INR 3.55 (0.83-1.16) H 01/20/17 18:07 Laboratory Results 01/21/17 04:00 01/21/17 04:00 01/21/17 07:39 Patient Temperature 37.0 DEGREES DEGREES pCO2 25 mmHg L mmHg (34 - 38) pO2 129 mmHg H mmHg (65 - 75) Total CO2 18 mEq/L L mEq/L (23 - 27) ABG pH 7.47 H (7.35 - 7.45) ABG PO2/FiO2 Ratio 129 RATIO RATIO ABG HCO3 18 mEq/L L mEq/L (22 - 26) ABG O2 Saturation 99 % H % (92 - 95) ABG Base Excess -4.4 mEq/L L mEq/L (-2.5 - 2.5) O2 Concentration % 100 % % Actual Respiration Rate 26 Set Respiration Rate 26 SIMV YES Tidal Volume 650 End Tidal CO2 27 PEEP 10 Pressure Support 7 Chest [id number] by myself. Endotracheal tube is in good position, there are patchy areas of pulmonary edema Physical Exam - Physical Exam General Appearance: other (Sedated but arousable), No alert EENT: PERRL/EOMI, ET tube Neck: non-tender, full range of motion Respiratory: crackles (Few), prolonged expiration, No stridor, No wheezing Cardiac/Chest: normal peripheral pulses (Intra-aortic balloon pump sounds), regular rate, rhythm Abdomen: normal bowel sounds, non-tender, soft Male Genitalia: deferred Rectal: deferred Skin: normal color, warm/dry Extremities: normal range of motion, non-tender, normal inspection, normal capillary refill ICD10 Worksheet Patient Problems: Problems Problem Status Onset STEMI (ST elevation myocardial infarction) Acute Spell of dizziness Acute
--- NOTE | 2017-01-21 08:52 | CPEKG ---
Heart Rate: 95 RR Interval: 632 P-R Interval: 140 QRSD Interval: 86 QT Interval: 408 QTC Interval: 513 P [place]: 81 QRS [place]: 80 T Wave [place]: -30 EKG Severity - ABNORMAL ECG - EKG Impression: SINUS RHYTHM EKG Impression: INFERIOR INFARCT, ACUTE EKG Impression: CONSIDER POSTERIOR WALL INVOLVEMENT EKG Impression: PROLONGED QT INTERVAL Electronically Signed By: Max Chopra 23-Jan-2017 12:05:43
--- NOTE | 2017-01-21 09:05 | ECHO ---
[id number] + + [address] : : [place] [address] : : [phone] + + Adult Echocardiographic Report + + :Name: VALERI BRUCE WStudy Date: 01/20/2017 04:01 PM : : Hospital Admission Number: [id number] Locati on: clinical laboratory director: :: 1955 Gender: Male : :Age: 61 yrs Race: AIA : :Reason For Study: R/O pericardial effusion : + + Pericardium/Pleural There is no pericardial effusion. Conclusion Limited 2-D echo. There is no pericardial effusion. Final Reading Physician: Alvaro Trevizo signed on 01/21/2017 09:03 AM Ordering Physician: Max Hernandez Performed By: Lakesha Knott RDCS
[2017-01-21] MEDS: fentaNYL/NACL 100 ML IV SCH (09:27)
[2017-01-21] MEDS: ASPIRIN EC 81 MG TAB PO SCH (10:14)
[2017-01-21] MEDS: VASOPRESSIN/DEXTROSE 250 ML IV SCH ×2 (11:04→21:35)
[2017-01-21 11:27] LABS: ANION GAP 6 mEq/L (8-16); CALCIUM 6.7 mg/dL (8.5-10.4); CARBON DIOXIDE 21 mEq/l (22-31); CHLORIDE 105 mEq/L (97-110); CREATININE 1.8 mg/dL (0.7-1.3); GLOMERULAR FILTRATION RATE 38; GLUCOSE 172 mg/dL (70-100); POTASSIUM 3.6 mEq/L (3.5-5.2); SODIUM 132 mEq/L (134-144)
[2017-01-21 11:29] LABS: CALCULATED OXYGEN SATURATION 90 % (92-95); O2 CONCENTRATIION 40 % (0-100)
[2017-01-21 11:32] LABS: BASE EXCESS -3.9 mEq/L (-2.5-2.5); BICARBONATE 18 mEq/L (22-26); IONIZED CALCIUM 0.95 MMOL/L (1.12-1.30); MEASURED OXYGEN SATURATION 91 % (92-95); PCO2 23 mmHg (34-38); PO2 62 mmHg (65-75); TCO2 18 mEq/L (23-27)
[2017-01-21 11:34] LABS: SIMV YES
[2017-01-21 11:35] LABS: END TIDAL CO2 26; O2 CONCENTRATIION 40 % (0-100); P/F RATIO 155 RATIO; PATIENT RATE 26; PRESSURE SUPPORT 7
[2017-01-21] MEDS: INSULIN REGULAR HUMAN 100 UNIT in NS 100 ML IV SCH (13:27)
[2017-01-21] MEDS ORDERED: POTASSIUM Cl (KCl) 50 ML IV SCH (13:30)
--- NOTE | 2017-01-21 13:55 | ECHO ---
[id number] + + [address] : : [place] [address] : : [phone] + + Adult Echocardiographic Report + -------+ :Name: VALERI BRUCE WStudy Date: 01/21/2017 10:32 AM : : Hospital Admission Number: [id number] Locati on: 255: :: 1955 Gender: Male Height: 68 in : :Age: 61 yrs Race: AIA Weight: 176 lb : :Reason For Study: Eval LV Fx : : BSA: 1.9 meter s2 : :History: Post Cardiac Arrest, Cardiogenic shock, IABP : + -------+ MMode/2D Measurements \T\ Calculations IVSd: 0.91 cm LVIDd: 3.4 cm FS: 15.0 % Ao root diam: 2.6 cm LVPWd: 1.2 cm LVIDs: 2.9 cm EDV(Teich): 46.7 ml ACS: 1.6 cm ESV(Teich): 31.4 ml EF(Teich): 32.7 % Normal Measurement Values: + + :LVIDd (3.5-5.7cm) IVSd (0.6-1.1cm) LVPWd (0.6-1.1cm) Aortic Root (2.0-3.7cm)Left Atrium (1.5-4.0cm): :LV Vol(d) (76-115ml) LV Vol(s) (29-48ml) Ejec Fraction (50-65%)PV Aden (0.6- 1.2m/s) TV Aden (0.4-1.0m/s) : :MV E [place] (0.8-1.0m/s)MV A [place] (0.3-1.0m/s)LVOT [place] (0.7-1.2m/s) Asc Ao Aden ( 0.9-1.8m/s) : + + Doppler Measurements \T\ Calculations MV E max aden: Ao V2 max: LV V1 max: PA V2 max: 55.8 cm/sec 119.4 cm/sec 74.5 cm/sec 138.0 cm/sec MV A max aden: Ao max PG: LV V1 max PG: PA max P.8 cm/sec 5.7 mmHg 2.2 mmHg 7.6 mmHg MV E/A: 1.0 TR max aden: 218.5 cm/sec TR max P.1 mmHg RAP systole: 5.0 mmHg RVSP(TR): 24.1 mmHg Left Ventricle The left ventricle is normal in size. There is normal left ventricular wall thickness. Ejection Fraction = 35-40%. There is basilar to mid inferolateral hypokinesis, There is inferior hypokinesis. Right Ventricle The right ventricle is normal in size and function. Atria The left atrial size is normal. Right atrial size is normal. Mitral Valve The mitral valve is normal in structure and function. There is no evidence of mitral valve prolapse. There is no mitral valve stenosis. There is no mitral regurgitation noted. Tricuspid Valve Normal tricuspid valve. There is trace tricuspid regurgitation. Aortic Valve The aortic valve is normal in structure and function. There is no aortic stenosis. There is no aortic insufficiency. Pulmonic Valve The pulmonic valve is normal in structure and function. There is no pulmonic valvular regurgitation. Great Vessels The aortic root is normal size. Pericardium/Pleural Small posterior pericardial effusion. Conclusion A complete two-dimensional transthoracic echocardiogram was performed (2D, M-mode, Doppler and color flow Doppler). The study was technically difficult. Ejection Fraction = 35-40%. There is basilar to mid inferolateral hypokinesis, There is inferior hypokinesis. The right ventricle is normal in size and function. The left atrial size is normal. The mitral valve is normal in structure and function. Normal tricuspid valve There is trace tricuspid regurgitation. The aortic valve is normal in structure and function. The pulmonic valve is normal in structure and function. Small posterior pericardial effusion Episodes of ectopy noted during the exam. The picc line appears to be in the right atrium. Final Reading Physician: Alvaro Trevizo signed on 01/21/2017 01:54 PM Ordering Physician: Jose Miguel Pruitt Performed By: Abilio Calderón, CS
[2017-01-21] MEDS ORDERED: POTASSIUM Cl (KCl) 50 ML IV ONE ×2 (14:00)
[2017-01-21] MEDS ORDERED: PETROLAT,WHT/MIN OIL/SOD CHL 3.5 GM OPHT.OINT EACHEYE PRN (14:11)
[2017-01-21] MEDS: HEPARIN/DEXTROSE 500 ML IV SCH (14:56)
--- NOTE | 2017-01-21 15:10 | SOAPPROG ---
SOAP Progress Note Assessment/Plan: Assessment: 1 coronary artery disease 2. Cardiogenic shock 3. Status post myocardial infarction 4. Ischemic cardiomyopathy 5. Dyslipidemia 6. Acute respiratory failure 7. renal insufficiency 8. diabetes 9. Anemia The patient is intubated. He is on high oxygen concentrations. He has an intra -aortic balloon pump. He has received a stent to his circumflex coronary artery. He is not responding right now he is medicated for his balloon pump and his intubation. He has longstanding problems with obesity dyslipidemia and known coronary artery disease. His epinephrine has been able to be weaned off so this is step of progress be still on multiple very strong strict pressors to maintain his blood pressure but his heart rate has dropped to a better level that was what was on the epinephrine. He is still intubated and is tolerating that well. He has 2 sisters who have spent extensive time with I have had an opportunity to answer all of their questions. Have talked to the nursing staff and the patient is currently stable and we will continue full aggressive cardiovascular support. As his blood pressure comes back up we can wean some of the pressors our plan will be to add medications for the treatment of systolic heart failure of coronary disease. Plan: 01/21/17 15:20 Subjective: intubated Objective: Vital Signs Temp Pulse Resp BP Pulse Ox 36.9 C 83 26 H 98/49 L 100 01/21/17 13:00 01/21/17 14:00 01/21/17 14:00 01/21/17 14:00 01/21/17 14:00 Laboratory Results 01/21/17 04:00 01/21/17 10:45 01/20/17 01/21/17 01/22/17 05:59 05:59 05:59 Intake Total 4414.7 Output Total 2400 100 Balance 2014.7 -100 PT 36.1 SEC (12.0-15.0) H D 01/20/17 18:07 INR 3.55 (0.83-1.16) H 01/20/17 18:07 Physical Exam - Physical Exam General Appearance: obtunded Respiratory: decreased breath sounds, rhonchi Cardiac/Chest: regular rate, rhythm, edema, systolic murmur, No tachycardia Abdomen: non-tender, soft, No normal bowel sounds, No mass Back: No CVA tenderness Skin: pallor Extremities: No calf tenderness Neuro/Psych: other (intubated) ICD10 Worksheet Patient Problems: Problems Problem Status Onset STEMI (ST elevation myocardial infarction) Acute Spell of dizziness Acute
[2017-01-21] MEDS ORDERED: CALCIUM GLUCONATE 50 ML IV ONE (16:00)
[2017-01-21 18:13] LABS: POTASSIUM 5.4 mEq/L (3.5-5.2)
[2017-01-21] MEDS ORDERED: ALBUMIN 25% 100 ML IV PRN (18:46)
[2017-01-21] MEDS: LORazepam 2 MG/ML INJ IVP PRN (20:26)
[2017-01-22] MEDS ORDERED: ACETAMINOPHEN 650 MG SUPP PR PRN (00:10)
[2017-01-22 00:21] LABS: HEMATOCRIT 28.4 % (40.0-51.0); HEMOGLOBIN 10.2 g/dL (13.7-17.5)
[2017-01-22 00:49] LABS: COLOR YELLOW; LEUKOCYTE ESTERASE,URINE 1+ (NEGATIVE); NITRITE,URINE NEGATIVE (NEGATIVE)
[2017-01-22] MEDS: ACETAMINOPHEN 650 MG/20.3 ML UDCUP TUBE PRN ×2 (00:54→07:47)
[2017-01-22 01:03] LABS: MUCUS TRACE /lpf (NONE-1+); RBC,URINE 25-50 /hpf (0-3)
[2017-01-22] MEDS: LORazepam 2 MG/ML INJ IVP PRN ×3 (02:13→21:31)
[2017-01-22] MEDS: fentaNYL/NACL 100 ML IV SCH ×3 (02:17→20:38)
[2017-01-22 02:46] LABS: POTASSIUM 4.9 mEq/L (3.5-5.2)
[2017-01-22] MEDS: PROPOFOL/EMULSION 100 ML IV SCH ×3 (05:31→18:26)
[2017-01-22 05:34] LABS: BASE EXCESS -2.8 mEq/L (-2.5-2.5); BICARBONATE 18 mEq/L (22-26); MEASURED OXYGEN SATURATION 95 % (92-95); PCO2 22 mmHg (34-38); PO2 75 mmHg (65-75); TCO2 19 mEq/L (23-27)
[2017-01-22 05:35] LABS: END TIDAL CO2 27; O2 CONCENTRATIION 60 % (0-100); P/F RATIO 125 RATIO
[2017-01-22] MEDS: NOREPINEPHRINE BITARTRATE 16 MG in NS 250 ML IV SCH (05:36)
[2017-01-22 05:37] LABS: HEMATOCRIT 30.6 % (40.0-51.0); HEMOGLOBIN 11.1 g/dL (13.7-17.5); MEAN CELL HEMOGLOBIN 33.7 pg (27.9-34.1); MEAN CELL HEMOGLOBIN CONCENTR. 36.3 g/dL (32.4-36.7); RED BLOOD CELL COUNT 3.29 10^6/uL (4.40-6.38); RED CELL DISTRIBUTION WIDTH 14.6 % (11.5-15.2)
[2017-01-22 06:17] LABS: ANION GAP 6 mEq/L (8-16); CARBON DIOXIDE 19 mEq/l (22-31); CHLORIDE 104 mEq/L (97-110); CREATININE 1.6 mg/dL (0.7-1.3); GLOMERULAR FILTRATION RATE 44; GLUCOSE 156 mg/dL (70-100); MAGNESIUM 1.7 mg/dL (1.6-2.3); POTASSIUM 4.6 mEq/L (3.5-5.2); SODIUM 129 mEq/L (134-144)
[2017-01-22] MEDS ORDERED: MAGNESIUM SULF 1 GM/DEXTROSE 100 ML IV ONE (06:48)
[2017-01-22] MEDS: ASPIRIN EC 81 MG TAB PO SCH (07:46)
[2017-01-22] MEDS: TICAGRELOR 90 MG TAB PO SCH ×2 (07:46→20:38)
[2017-01-22] MEDS: CHLORHEXIDINE GLUCONATE 15 ML UDL PO SCH ×2 (07:47→20:38)
[2017-01-22] MEDS: FAMOTIDINE 20 MG/NACL 50 ML IV SCH ×2 (07:47→20:38)
[2017-01-22] MEDS: VASOPRESSIN/DEXTROSE 250 ML IV SCH (07:54)
[2017-01-22] MEDS ORDERED: BISACODYL 10 MG SUPP PR PRN (08:22)
[2017-01-22] MEDS ORDERED: POLYETHYLENE GLYCOL 3350 17 GM PKT PO PRN (08:22)
[2017-01-22] MEDS ORDERED: LACTULOSE 20 GM/30 ML UDCUP PO PRN (08:22)
[2017-01-22] MEDS ORDERED: MAGNESIUM HYDROXIDE 30 ML UDCUP PO PRN (08:22)
[2017-01-22] MEDS ORDERED: SENNOSIDES/DOCUSATE SODIUM TAB PO SCH (09:00)
--- NOTE | 2017-01-22 09:13 | PDINTPN ---
Electrical Controls Assembler Progress Note Assessment/Plan: Assessment/plan: * Acute hypoxemic respiratory failure-secondary to pulmonary edema and status post cardiac arrest. Respiratory alkalosis at this time -will decrease rate to 16 and recheck a ABG later on today. * Coronary disease/status post myocardial infarction * Status post multiple coronary artery stents * Chronic obstructive pulmonary disease * History of hypertension * Shock-improved -wean pressors as tolerated * Intra-aortic balloon pump * Tachycardia * Sedation-adequate * Nutrition-on hold 40 minutes of critical care time spent with the patient. Case discussed with Nursing and Respiratory therapy Subjective: Awakens easily. Appears comfortable on mechanical ventilation Objective: Vital Signs Temp Pulse Resp BP Pulse Ox 37.2 C 90 20 109/61 94 01/22/17 09:00 01/22/17 09:00 01/22/17 09:00 01/22/17 09:00 01/22/17 09:00 Microbiology 01/22/17 04:15 - Final Sputum, Induced/Suctioned Laboratory Results 01/22/17 05:25 01/22/17 05:25 01/21/17 01/22/17 01/23/17 05:59 05:59 05:59 Intake Total 4414.7 4685.4 Output Total 2400 1215 47 Balance 2014.7 3470.4 -47 PT 36.1 SEC (12.0-15.0) H D 01/20/17 18:07 INR 3.55 (0.83-1.16) H 01/20/17 18:07 Laboratory Results 01/22/17 05:25 01/22/17 05:25 01/22/17 01/22/17 01/22/17 05:25 05:25 00:40 Patient Temperature 37.7 DEGREES DEGREES pCO2 22 mmHg L mmHg (34 - 38) pO2 75 mmHg mmHg (65 - 75) Total CO2 19 mEq/L L mEq/L (23 - 27) ABG pH 7.52 H (7.35 - 7.45) ABG PO2/FiO2 Ratio 125 RATIO RATIO ABG HCO3 18 mEq/L L mEq/L (22 - 26) ABG O2 Saturation 95 % % (92 - 95) ABG Base Excess -2.8 mEq/L L mEq/L (-2.5 - 2.5) O2 Concentration % 60 % % Estimated GFR 44 Glucose 156 mg/dL H mg/dL (70 - 100) POC Glucose Calcium 7.0 mg/dL L mg/dL (8.5 - 10.4) Magnesium 1.7 mg/dL mg/dL (1.6 - 2.3) Urine pH 5.0 (5.0 - 7.5) Ur Specific [place] 1.031 H (1.002 - 1.030) Urine Protein NEGATIVE Urine Ketones TRACE H Urine Blood 3+ H Urine Nitrate NEGATIVE Urine Bilirubin NEGATIVE Urine Urobilinogen NEGATIVE EU EU Ur Leukocyte Esterase 1+ H Urine RBC 25-50 /hpf H /hpf Urine WBC 10-15 /hpf H /hpf Ur Epithelial Cells NONE SEEN /lpf /lpf Urine Mucus TRACE /lpf /lpf Urine Glucose NEGATIVE 01/22/17 00:03 Patient Temperature pCO2 pO2 Total CO2 ABG pH ABG PO2/FiO2 Ratio ABG HCO3 ABG O2 Saturation ABG Base Excess O2 Concentration % Estimated GFR Glucose POC Glucose 145 mg/dL H mg/dL (70 - 100) Calcium Magnesium Urine pH Ur Specific [place] Urine Protein Urine Ketones Urine Blood Urine Nitrate Urine Bilirubin Urine Urobilinogen Ur Leukocyte Esterase Urine RBC Urine WBC Ur Epithelial Cells Urine Mucus Urine Glucose Chest [id number] by myself. Endotracheal tube in good position. Intra- aortic balloon pump in good position. Improved edema, however small pleural effusions are present - Time Spent With Patient Time Spent With Patient: 40 Physical Exam - Physical Exam General Appearance: alert EENT: PERRL/EOMI, ET tube Neck: non-tender, full range of motion, supple, normal inspection Respiratory: rales (Few), No respiratory distress, No wheezing, No prolonged expiration Cardiac/Chest: normal peripheral pulses, regular rate, rhythm, other (IABP sounds of) Abdomen: normal bowel sounds, non-tender, soft Male Genitalia: deferred Rectal: deferred Skin: normal color, warm/dry Extremities: normal range of motion, non-tender, normal inspection, normal capillary refill Neuro/Psych: alert ICD10 Worksheet Patient Problems: Problems Problem Status Onset STEMI (ST elevation myocardial infarction) Acute Spell of dizziness Acute
[2017-01-22] MEDS ORDERED: FUROSEMIDE 40 MG/4 ML VIAL IVP ONE ×2 (09:35→14:07)
[2017-01-22 10:11] LABS: BASE EXCESS -2.6 mEq/L (-2.5-2.5); BICARBONATE 21 mEq/L (22-26); MEASURED OXYGEN SATURATION 93 % (92-95); TCO2 22 mEq/L (23-27)
[2017-01-22 10:15] LABS: END TIDAL CO2 45; O2 CONCENTRATIION 60 % (0-100); SIMV YES
[2017-01-22 10:16] LABS: PATIENT RATE 18; PRESSURE SUPPORT 7
[2017-01-22 10:19] LABS: P/F RATIO 125 RATIO
[2017-01-22 10:59] LABS: PCO2 33 mmHg (34-38); PO2 75 mmHg (65-75)
[2017-01-22] MEDS: SENNOSIDES 17.6 MG/10 ML UDL - IF LIQUID ORDERED TUBE SCH ×2 (11:24→20:38)
[2017-01-22 12:58] LABS: POTASSIUM 4.2 mEq/L (3.5-5.2)
[2017-01-22 14:50] LABS: ANION GAP 8 mEq/L (8-16); CALCIUM 7.2 mg/dL (8.5-10.4); CARBON DIOXIDE 22 mEq/l (22-31); CHLORIDE 101 mEq/L (97-110); CREATININE 1.5 mg/dL (0.7-1.3); GLOMERULAR FILTRATION RATE 47; GLUCOSE 101 mg/dL (70-100); POTASSIUM 4.4 mEq/L (3.5-5.2); SODIUM 131 mEq/L (134-144)
[2017-01-22 15:11] LABS: % IMMATURE GRANULYOCYTES 0.5 % (0.0-1.1); ABSOLUTE IMMATURE GRANULOCYTES 0.06 10^3/uL (0.00-0.10); ADD DIFF? NO; ADD MORPH? NO; ADD SCAN? NO; ATYPICAL LYMPHOCYTE FLAG 0 (0-99); FRAGMENT RBC FLAG 0 (0-99); HEMOGLOBIN 12.1 g/dL (13.7-17.5); LEFT SHIFT FLG 10 (0-99); LIPEMIA HEMOLYSIS FLAG 90 (0-99); MEAN CELL HEMOGLOBIN 32.8 pg (27.9-34.1); MEAN CELL HEMOGLOBIN CONCENTR. 35.6 g/dL (32.4-36.7); MEAN CELL VOLUME 92.1 fL (81.5-99.8); MEAN PLATELET VOLUME 10.8 fL (8.7-11.7); PLATELET CLUMPS FLAG 0 (0-99); PLATELET COUNT 158 10^3/uL (150-400); RED BLOOD CELL COUNT 3.69 10^6/uL (4.40-6.38); RED CELL DISTRIBUTION WIDTH 16.4 % (11.5-15.2)
--- NOTE | 2017-01-22 16:52 | SOAPPROG ---
SODEVIN Progress Note Assessment/Plan: Assessment: 1 coronary artery disease 2. Cardiogenic shock 3. Status post myocardial infarction 4. Ischemic cardiomyopathy 5. Dyslipidemia 6. Acute respiratory failure 7. renal insufficiency 8. diabetes 9. Anemi Plan: 01/21/17 15:20 01/22/17 16:48 1. Coronary artery disease 2. Cardiogenic shock 3. Status post myocardial infarction 4. Ischemic cardiomyopathy 5. Dyslipidemia 6. Acute respiratory failure 7. Renal insufficiency 8. Diabetes 9. Anemia He is coming off his drips quite well. His cardiogenic shock is improving. Still intubated. He is tolerating 124 on the inner aortic balloon pump. We will remove the balloon pump tomorrow morning. He is holding his own with blood pressure right now with minimal help. I am told the staff that at times when he wakes up he seems to be responding. I have not noticed that in the times at been there. I have reviewed his case with the intensive care service and the nursing staff and he is very much improving We will take out the balloon pump tomorrow if he can tolerate it. We will follow very closely. Slowly as his pressure comes up will be able up titrate kinds medications we want would want him on for his ischemic cardiomyopathy. As of right now he is having no mechanical complications of a significant acute myocardial infarction. Repeated echocardiographic study aborted. Will discontinue his heparin for now and a half before we pull out the intra- aortic balloon pump tomorrow morning. We will assess him very carefully in the morning and see if this plan continues to make sense at that time. His family has not been here I have been looking fo Subjective: he is intubated at this time. Objective: Vital Signs Temp Pulse Resp BP Pulse Ox 37.2 C 97 16 102/69 98 01/22/17 16:42 01/22/17 16:42 01/22/17 16:42 01/22/17 16:42 01/22/17 16:42 Microbiology 01/22/17 04:15 - Final Sputum, Induced/Suctioned Laboratory Results 01/22/17 14:20 01/22/17 14:20 01/21/17 01/22/17 01/23/17 05:59 05:59 05:59 Intake Total 4414.7 4685.4 1654 Output Total 2400 1215 3347 Balance 3470.4 -1693 PT 36.1 SEC (12.0-15.0) H D 01/20/17 18:07 INR 3.55 (0.83-1.16) H 01/20/17 18:07 Physical Exam - Physical Exam General Appearance: obtunded Respiratory: rhonchi, No wheezing Cardiac/Chest: regular rate, rhythm, systolic murmur Abdomen: non-tender, soft, No organomegaly Back: No CVA tenderness Skin: warm/dry, pallor Neuro/Psych: No alert, No normal mood/affect ICD10 Worksheet Patient Problems: Problems Problem Status Onset STEMI (ST elevation myocardial infarction) Acute Spell of dizziness Acute
[2017-01-22] MEDS: HEPARIN/DEXTROSE 500 ML IV SCH (17:54)
[2017-01-22 20:28] LABS: BASE EXCESS -0.5 mEq/L (-2.5-2.5); BICARBONATE 23 mEq/L (22-26); MEASURED OXYGEN SATURATION 95 % (92-95); PCO2 36 mmHg (34-38); PO2 87 mmHg (65-75); TCO2 24 mEq/L (23-27)
[2017-01-22] MEDS ORDERED: NOREPINEPHRINE/NS 500 ML IV SCH (20:30)
[2017-01-22 20:31] LABS: END TIDAL CO2 50; P/F RATIO 145 RATIO
[2017-01-22 20:32] LABS: O2 CONCENTRATIION 60 % (0-100)
[2017-01-23] MEDS: PROPOFOL/EMULSION 100 ML IV SCH ×4 (01:05→23:00)
[2017-01-23 02:21] LABS: POTASSIUM 4.1 mEq/L (3.5-5.2)
[2017-01-23 05:12] LABS: BASE EXCESS -0.1 mEq/L (-2.5-2.5); BICARBONATE 23 mEq/L (22-26); MEASURED OXYGEN SATURATION 96 % (92-95); PCO2 33 mmHg (34-38); PO2 88 mmHg (65-75); TCO2 24 mEq/L (23-27)
[2017-01-23 05:19] LABS: END TIDAL CO2 49; O2 CONCENTRATIION 50 % (0-100); P/F RATIO 176 RATIO
[2017-01-23 05:23] LABS: HEMOGLOBIN 10.8 g/dL (13.7-17.5); MEAN CELL HEMOGLOBIN 32.7 pg (27.9-34.1); MEAN CELL HEMOGLOBIN CONCENTR. 34.8 g/dL (32.4-36.7); MEAN CELL VOLUME 93.9 fL (81.5-99.8); RED BLOOD CELL COUNT 3.3 10^6/uL (4.40-6.38); RED CELL DISTRIBUTION WIDTH 16.4 % (11.5-15.2)
[2017-01-23 06:13] LABS: ANION GAP 5 mEq/L (8-16); CALCIUM 7.2 mg/dL (8.5-10.4); CARBON DIOXIDE 24 mEq/l (22-31); CHLORIDE 102 mEq/L (97-110); CREATININE 1.3 mg/dL (0.7-1.3); GLOMERULAR FILTRATION RATE 56; GLUCOSE 108 mg/dL (70-100); SODIUM 131 mEq/L (134-144)
[2017-01-23 06:58] LABS: BASE EXCESS -0.9 mEq/L (-2.5-2.5); BICARBONATE 23 mEq/L (22-26); MEASURED OXYGEN SATURATION 88 % (92-95); PCO2 37 mmHg (34-38); PO2 59 mmHg (65-75); TCO2 24 mEq/L (23-27)
--- NOTE | 2017-01-23 09:28 | PDINTPN ---
Mechanical Equipment Test Engineer Progress Note Assessment/Plan: Assessment/plan: * Acute hypoxemic respiratory failure-secondary to pulmonary edema and status post cardiac arrest. Problems this morning while coughing, with increased hypoxemia requiring increasing peep and FiO2 -wean as tolerated today * Coronary disease/status post myocardial infarction * Status post multiple coronary artery stents * Chronic obstructive pulmonary disease * History of hypertension * Shock-improved -wean pressors as tolerated * Intra-aortic balloon pump. Now on 1:2 * Tachycardia * History of excessive alcohol-follow closely for withdrawal symptoms * Sedation-adequate * Nutrition-on hold 35 minutes of critical care time spent with the patient. Case discussed with Nursing and Respiratory therapy Subjective: Sedated on mechanical ventilation. Awakens easily Objective: Vital Signs Temp Pulse Resp BP Pulse Ox 37.9 C 82 16 94/57 L 98 01/23/17 08:00 01/23/17 08:00 01/23/17 08:00 01/23/17 06:00 01/23/17 08:00 Microbiology 01/22/17 04:15 - Final Sputum, Induced/Suctioned Laboratory Results 01/23/17 05:00 01/23/17 05:00 01/22/17 01/23/17 01/24/17 05:59 05:59 05:59 Intake Total 4685.4 2578 Output Total 1215 4924 70 Balance 3470.4 -2346 -70 PT 36.1 SEC (12.0-15.0) H D 01/20/17 18:07 INR 3.55 (0.83-1.16) H 01/20/17 18:07 - Time Spent With Patient Time Spent With Patient: 35 Physical Exam - Physical Exam General Appearance: other (Sedated) EENT: PERRL/EOMI, ET tube Neck: non-tender, full range of motion, supple Respiratory: crackles (Few basilar), No respiratory distress, No wheezing, No prolonged expiration Cardiac/Chest: normal peripheral pulses, regular rate, rhythm, systolic murmur, other (Intra-aortic balloon pump sounds) Abdomen: normal bowel sounds, non-tender, soft Male Genitalia: deferred Rectal: deferred Skin: normal color, warm/dry Extremities: non-tender, normal inspection ICD10 Worksheet Patient Problems: Problems Problem Status Onset STEMI (ST elevation myocardial infarction) Acute Spell of dizziness Acute
[2017-01-23] MEDS: SENNOSIDES 17.6 MG/10 ML UDL - IF LIQUID ORDERED TUBE SCH ×2 (10:02→20:47)
[2017-01-23] MEDS: ASPIRIN 81 MG CHEWABLE TAB TUBE SCH (10:02)
[2017-01-23] MEDS: FAMOTIDINE 20 MG/NACL 50 ML IV SCH ×2 (10:02→20:47)
[2017-01-23] MEDS: TICAGRELOR 90 MG TAB PO SCH ×2 (10:02→20:47)
[2017-01-23] MEDS: CHLORHEXIDINE GLUCONATE 15 ML UDL PO SCH ×2 (10:03→20:47)
[2017-01-23] MEDS: LORazepam 2 MG/ML INJ IVP PRN ×3 (10:13→22:00)
[2017-01-23] MEDS ORDERED: LACTULOSE 20 GM/30 ML UDCUP TUBE PRN (10:35)
[2017-01-23] MEDS ORDERED: TEMAZEPAM 15 MG CAP TUBE PRN (10:36)
[2017-01-23] MEDS: ALBUTEROL 200 PUFFS/18 GM MDI IH SCH ×3 (11:45→19:30)
[2017-01-23] MEDS: fentaNYL/NACL 100 ML IV SCH ×2 (12:23→23:51)
[2017-01-23 12:37] LABS: HEMATOCRIT 30.2 % (40.0-51.0); HEMOGLOBIN 10.5 g/dL (13.7-17.5)
[2017-01-23] MEDS ORDERED: FUROSEMIDE 40 MG/4 ML VIAL ONE (12:52)
--- NOTE | 2017-01-23 14:08 | ECHO ---
[id number] + + [id number] : : [place] [id number] : : [phone] + + Adult Echocardiographic Report + + :Name: VALERI BRUCE Study Date: 01/23/2017 01:36 PM : : Hospital Admission Number: [id number] : :: 1955 Gender: Male : :Age: 61 yrs Race: AIA : :Reason For Study: S/P RI/IABP/Eval LV function : + + Left Ventricle Ejection Fraction = 40%. LV basal/mid inferolateral and inferior case are akinetic. Conclusion Limited 2-D echo. Ejection Fraction = 40%. LV basal/mid inferolateral and inferior case are akinetic. Final Reading Physician: Alvaro Trevizo signed on 01/23/2017 02:07 PM Ordering Physician: Jose Miguel Pruitt Performed By: Lakesha Knott, NIKITACS
[2017-01-23] MEDS ORDERED: FUROSEMIDE 40 MG/4 ML VIAL IVP SCH (15:00)
[2017-01-23] MEDS ORDERED: DOBUTamine/DEXTROSE 250 ML IV SCH (15:30)
--- NOTE | 2017-01-23 16:30 | CPEKG ---
Heart Rate: 95 RR Interval: 632 P-R Interval: 168 QRSD Interval: 130 QT Interval: 372 QTC Interval: 468 P [place]: 77 QRS [place]: 88 T Wave [place]: -6 EKG Severity - ABNORMAL ECG - EKG Impression: SINUS RHYTHM EKG Impression: NONSPECIFIC INTRAVENTRICULAR CONDUCTION DELAY EKG Impression: INFERIOR INFARCT, AGE INDETERMINATE EKG Impression: CONSIDER POSTERIOR WALL INVOLVEMENT Electronically Signed By: Max Chopra 23-Jan-2017 20:52:59
[2017-01-23 18:18] LABS: POTASSIUM 3.7 mEq/L (3.5-5.2)
[2017-01-23] MEDS ORDERED: POTASSIUM Cl (KCl) 50 ML IV ONE (19:02)
[2017-01-23] MEDS: HEPARIN/DEXTROSE 500 ML IV SCH (19:52)
[2017-01-24] MEDS: ALBUTEROL 200 PUFFS/18 GM MDI IH SCH ×7 (00:10→23:45)
[2017-01-24 01:36] LABS: POTASSIUM 4.2 mEq/L (3.5-5.2)
[2017-01-24] MEDS: PROPOFOL/EMULSION 100 ML IV SCH ×5 (02:08→22:45)
[2017-01-24 05:15] LABS: BASE EXCESS 1.9 mEq/L (-2.5-2.5); BICARBONATE 25 mEq/L (22-26); MEASURED OXYGEN SATURATION 97 % (92-95); PCO2 34 mmHg (34-38); PO2 94 mmHg (65-75); TCO2 26 mEq/L (23-27)
[2017-01-24 05:20] LABS: HEMATOCRIT 28.5 % (40.0-51.0); HEMOGLOBIN 9.8 g/dL (13.7-17.5); MEAN CELL HEMOGLOBIN 32.6 pg (27.9-34.1); MEAN CELL HEMOGLOBIN CONCENTR. 34.4 g/dL (32.4-36.7); MEAN CELL VOLUME 94.7 fL (81.5-99.8); RED BLOOD CELL COUNT 3.01 10^6/uL (4.40-6.38); RED CELL DISTRIBUTION WIDTH 15.6 % (11.5-15.2)
[2017-01-24] MEDS: LORazepam 2 MG/ML INJ IVP PRN ×2 (05:36→15:27)
[2017-01-24 05:41] LABS: ANION GAP 7 mEq/L (8-16); CALCIUM 7.8 mg/dL (8.5-10.4); CARBON DIOXIDE 27 mEq/l (22-31); CHLORIDE 101 mEq/L (97-110); CREATININE 1.2 mg/dL (0.7-1.3); GLOMERULAR FILTRATION RATE > 60; GLUCOSE 103 mg/dL (70-100); MAGNESIUM 2.2 mg/dL (1.6-2.3); POTASSIUM 4.1 mEq/L (3.5-5.2); SODIUM 135 mEq/L (134-144)
[2017-01-24] MEDS: CHLORHEXIDINE GLUCONATE 15 ML UDL PO SCH ×2 (08:06→21:14)
--- NOTE | 2017-01-24 08:47 | PDINTPN ---
Cold Rolling Supervisor Progress Note Assessment/Plan: Assessment/plan: * Acute hypoxemic respiratory failure-secondary to pulmonary edema and status post cardiac arrest. -assess for extubation after intra aortic balloon pump has been removed * Coronary disease/status post myocardial infarction * Status post multiple coronary artery stents * Chronic obstructive pulmonary disease-continue nebs * History of hypertension * Shock-improved -intra-aortic balloon pump to be removed * Intra-aortic balloon pump. Now on 1:2 * Tachycardia * History of excessive alcohol-follow closely for withdrawal symptoms * Sedation-adequate * Nutrition-on hold 40 minutes of critical care time spent with the patient. Case discussed with Nursing and Respiratory therapy Subjective: Sedated and on mechanical ventilation Objective: Vital Signs Temp Pulse Resp BP Pulse Ox 37.5 C 83 16 123/81 H 95 01/24/17 07:00 01/24/17 08:03 01/24/17 08:03 01/23/17 11:49 01/24/17 08:03 Microbiology 01/22/17 04:15 - Final Sputum, Induced/Suctioned Laboratory Results 01/24/17 05:00 01/24/17 05:00 01/23/17 01/24/17 01/25/17 05:59 05:59 05:59 Intake Total 2578 1266 Output Total 4924 3330 100 Balance -2346 -2064 -100 PT 36.1 SEC (12.0-15.0) H D 01/20/17 18:07 INR 3.55 (0.83-1.16) H 01/20/17 18:07 - Time Spent With Patient Time Spent With Patient: 40 Physical Exam - Physical Exam General Appearance: other (Sedated), No alert EENT: PERRL/EOMI, ET tube Neck: non-tender, full range of motion, supple Respiratory: rhonchi (Scattered), No respiratory distress, No stridor, No wheezing Cardiac/Chest: normal peripheral pulses, regular rate, rhythm, other (Inter aortic balloon pump sounds) Abdomen: normal bowel sounds, non-tender, soft Male Genitalia: deferred Rectal: deferred Skin: normal color, warm/dry Neuro/Psych: No alert ICD10 Worksheet Patient Problems: Problems Problem Status Onset STEMI (ST elevation myocardial infarction) Acute Spell of dizziness Acute
[2017-01-24] MEDS: SENNOSIDES 17.6 MG/10 ML UDL - IF LIQUID ORDERED TUBE SCH ×2 (09:00→21:14)
[2017-01-24] MEDS: FAMOTIDINE 20 MG/NACL 50 ML IV SCH ×2 (09:00→21:15)
[2017-01-24] MEDS: fentaNYL/NACL 100 ML IV SCH ×2 (09:08→17:10)
[2017-01-24] MEDS: TICAGRELOR 90 MG TAB PO SCH (09:33)
[2017-01-24] MEDS ORDERED: NS 500 ML IV PRN (11:42)
[2017-01-24] MEDS ORDERED: DEXMEDETOMIDINE HCL 400 MCG in NS 100 ML IV SCH (11:42)
--- NOTE | 2017-01-24 13:58 | SOAPPROG ---
SOAP Progress Note Assessment/Plan: Assessment: 1 coronary artery disease 2. Cardiogenic shock 3. Status post myocardial infarction 4. Ischemic cardiomyopathy 5. Dyslipidemia 6. Acute respiratory failure 7. renal insufficiency 8. diabetes 9. Anemi Plan: 01/21/17 15:20 01/22/17 16:48 1. Coronary artery disease 2. Cardiogenic shock 3. Status post myocardial infarction 4. Ischemic cardiomyopathy 5. Dyslipidemia 6. Acute respiratory failure 7. Renal insufficiency 8. Diabetes 9. Anemia 01/24/17 13:50 Today is January 24. The patient's now it is an aortic balloon pump removed without any complications. He is not having any other troubles right now that are new. He is coming office strips His pressures are stable. He is tolerating his oxygenation quite well. The plan will be to extubate him in the morning if his night goes well. He is not having chest pain jaw pain He is not having any other new significant hemodynamic problems right at this time. When I examined him yesterday he had an episode of flash pulmonary edema. That improved dramatically with IV Lasix. I reviewed that with the intensivists and nursing staff at the time yesterday. We felt that he should stay on the balloon pump and yesterday afternoon we increased if 2120. He tolerated that quite well. His exam yesterday was not significantly different than it was today by the time I saw him. His pulmonary edema had improved significantly Had a big increase in his oxygen requirement at the time and that has improved. He is on the dobutamine now and he is doing quite well with that. I also had an opportunity to talk extensively with his sister on several occasions yesterday and with his neighbors from where he lifts up above for it. Started talking about disposition and the fact that he will need to have a transitional place before he goes home. Where he lives he has cut his own firewood Care his own water and I do not want him to have to do that immediately after that time he is going to be leaving the hospital. All their questions were answered then and today a different sisters in town from [place] I have answered all her questions as well. Now that he is at out of the intra-aortic balloon pump and will be extubated hopefully tomorrow have a good idea to see how his mental status is his neurologic exam as we can wean off the drugs. 01/24/17 13:58 s here Subjective: Patient is on propofol and intubated. Objective: Vital Signs Temp Pulse Resp BP Pulse Ox 37.8 C 83 16 104/66 95 01/24/17 12:00 01/24/17 13:30 01/24/17 13:30 01/24/17 13:30 01/24/17 13:30 Microbiology 01/22/17 04:15 - Final Sputum, Induced/Suctioned Sputum Culture - Final Laboratory Results 01/24/17 05:00 01/24/17 12:20 01/23/17 01/24/17 01/25/17 05:59 05:59 05:59 Intake Total 2578 1266 Output Total 4924 3330 100 Balance -2346 -2064 -100 PT 36.1 SEC (12.0-15.0) H D 01/20/17 18:07 INR 3.55 (0.83-1.16) H 01/20/17 18:07 Physical Exam - Physical Exam General Appearance: mild distress Respiratory: rhonchi, prolonged expiration, No wheezing Cardiac/Chest: regular rate, rhythm, edema, systolic murmur Abdomen: non-tender, soft, No organomegaly Skin: mottled, pallor Extremities: non-tender, No calf tenderness Neuro/Psych: No normal mood/affect ICD10 Worksheet Patient Problems: Problems Problem Status Onset STEMI (ST elevation myocardial infarction) Acute Spell of dizziness Acute
--- NOTE | 2017-01-24 14:22 | CPIP ---
[f rep st] INVASIVE CARDIAC PROCEDURE PROCEDURE PERFORMED: Intra-aortic balloon pump removal. The patient is on propofol and is intubated. He has excellent color in both lower extremities. He had pulses present in both lower extremities and dorsalis pedis pulses. The intra-aortic balloon pu mp was removed carefully, as well as the venous sheath with a temporary pacemaker wire. These were removed from the right groin. There were no complications in the removal of the device. The patient's groin was held for over 10 minutes of intermittent pressure. We had a monitor on his toe and could measure that he was getting intermittently excellent pulses. He had no significant bl ood loss, and after 12 minutes of holding there was no hematoma present. His groin was totally flat above the insertion site of both the venous and arterial sheath. There were no clots on the balloon pump when it was removed. The patient had been all morning on 1/ of the balloon pump and tolerating it well, maintaining his blood pressure. Then, his continuous heparin was stopped and the patient ACT drifted down slowly, a nd it was checked multiple times, and got to 155. At that point in time, we proceeded with removing the inner aortic balloon pump. I discussed what we were doing with the family beforehand, and then I had a longer discussion with the family afterwards. The patient is stable hemodynamically at this point. There were no complications. He has excellent distal pulses, warm extremities. /[id number]/MODL
[2017-01-24] MEDS: FUROSEMIDE 40 MG/4 ML VIAL IVP SCH (15:39)
[2017-01-24 17:58] LABS: POTASSIUM 3.9 mEq/L (3.5-5.2)
--- NOTE | 2017-01-24 18:05 | CPEKG ---
Heart Rate: 96 RR Interval: 625 QRSD Interval: 118 QT Interval: 360 QTC Interval: 455 QRS [place]: 89 T Wave [place]: 13 EKG Severity - ABNORMAL ECG - EKG Impression: ATRIAL FIBRILLATION EKG Impression: NONSPECIFIC INTRAVENTRICULAR CONDUCTION DELAY EKG Impression: PROBABLE INFERIOR INFARCT, AGE INDETERMINATE EKG Impression: ST DEPRESSION, CONSIDER ISCHEMIA, ANT-LAT LDS VS RECIPROCAL CHANGES Electronically Signed By: Heron Hendricks 25-Jan-2017 08:58:52
[2017-01-24] MEDS: ASPIRIN 81 MG CHEWABLE TAB TUBE SCH (18:11)
[2017-01-24] MEDS ORDERED: POTASSIUM Cl (KCl) 50 ML IV ONE (18:29)
[2017-01-24] MEDS ORDERED: AMIODARONE HCL 100 ML IV ONE (18:30)
[2017-01-24] MEDS ORDERED: AMIODARONE A.FIB-6HR INFSN (ORDER 2/3) IV ONE (19:00)
[2017-01-24] MEDS: TICAGRELOR 90 MG TAB TUBE SCH (21:18)
[2017-01-25 00:58] LABS: POTASSIUM 4.2 mEq/L (3.5-5.2)
[2017-01-25] MEDS: PROPOFOL/EMULSION 100 ML IV SCH ×2 (00:59→04:47)
[2017-01-25] MEDS: fentaNYL/NACL 100 ML IV SCH (00:59)
[2017-01-25] MEDS ORDERED: AMIODARONE A.FIB-18HR INFSN (ORDER 3/3) IV ONE (01:00)
[2017-01-25] MEDS: ALBUTEROL 200 PUFFS/18 GM MDI IH SCH ×2 (04:20→08:49)
[2017-01-25 04:49] LABS: MAGNESIUM 2.2 mg/dL (1.6-2.3); POTASSIUM 4.2 mEq/L (3.5-5.2)
[2017-01-25] MEDS: CHLORHEXIDINE GLUCONATE 15 ML UDL PO SCH ×2 (09:14→21:00)
[2017-01-25] MEDS: SENNOSIDES 17.6 MG/10 ML UDL - IF LIQUID ORDERED TUBE SCH (09:20)
[2017-01-25] MEDS: TICAGRELOR 90 MG TAB TUBE SCH ×2 (09:20→21:40)
[2017-01-25] MEDS: ASPIRIN 81 MG CHEWABLE TAB TUBE SCH (09:20)
[2017-01-25] MEDS: ENOXAPARIN 40 MG/0.4 ML SYR SC SCH (09:21)
[2017-01-25] MEDS: FUROSEMIDE 40 MG/4 ML VIAL IVP SCH ×2 (09:21→15:04)
[2017-01-25] MEDS: FAMOTIDINE 20 MG/NACL 50 ML IV SCH (09:21)
--- NOTE | 2017-01-25 09:32 | PDINTPN ---
All Around Patternmaker Progress Note Assessment/Plan: Assessment/plan: * Acute hypoxemic respiratory failure-secondary to pulmonary edema and status post cardiac arrest. -doing well on CPAP trial -likely extubation today * Coronary disease/status post myocardial infarction * Status post multiple coronary artery stents * Chronic obstructive pulmonary disease-continue nebs * History of hypertension * Shock-resolved * Intra-aortic balloon pump-now out * Tachycardia * History of excessive alcohol-follow closely for withdrawal symptoms * Sedation-adequate * Nutrition-on hold 35 minutes of critical care time spent with the patient. Case discussed with Nursing and Respiratory therapy Subjective: Awake and alert on mechanical ventilation. Objective: Vital Signs Temp Pulse Resp BP Pulse Ox 37.5 C 82 20 101/85 H 90 L 01/25/17 04:00 01/25/17 09:00 01/25/17 09:00 01/25/17 09:00 01/25/17 09:00 Microbiology 01/22/17 04:15 - Final Sputum, Induced/Suctioned Sputum Culture - Final Laboratory Results 01/24/17 05:00 01/25/17 04:20 01/24/17 01/25/17 01/26/17 05:59 05:59 05:59 Intake Total 1266 1357 Output Total 3330 2250 Balance -2064 -893 PT 36.1 SEC (12.0-15.0) H D 01/20/17 18:07 INR 3.55 (0.83-1.16) H 01/20/17 18:07 - Time Spent With Patient Time Spent With Patient: 35 Physical Exam - Physical Exam General Appearance: alert, no apparent distress EENT: PERRL/EOMI, ET tube Neck: non-tender, full range of motion, supple, normal inspection Respiratory: chest non-tender, lungs clear, crackles (Few) Cardiac/Chest: normal peripheral pulses, regular rate, rhythm, systolic murmur Abdomen: normal bowel sounds, non-tender, soft Male Genitalia: deferred Rectal: deferred Skin: normal color, warm/dry Extremities: normal range of motion, non-tender, normal inspection, normal capillary refill ICD10 Worksheet Patient Problems: Problems Problem Status Onset STEMI (ST elevation myocardial infarction) Acute Spell of dizziness Acute
[2017-01-25 09:43] LABS: BASE EXCESS 1.5 mEq/L (-2.5-2.5); BICARBONATE 25 mEq/L (22-26); MEASURED OXYGEN SATURATION 90 % (92-95); PCO2 35 mmHg (34-38); PO2 60 mmHg (65-75); TCO2 26 mEq/L (23-27)
[2017-01-25 09:44] LABS: CPAP YES; END TIDAL CO2 53; O2 CONCENTRATIION 45 % (0-100); P/F RATIO 133 RATIO; PATIENT RATE 25; PRESSURE SUPPORT 7
[2017-01-25] MEDS ORDERED: FUROSEMIDE 40 MG/4 ML VIAL IVP ONE (10:37)
[2017-01-25 11:33] LABS: POTASSIUM 3.8 mEq/L (3.5-5.2)
--- NOTE | 2017-01-25 11:49 | SOAPPROG ---
SOAP Progress Note Assessment/Plan: Assessment: 1 coronary artery disease 2. Cardiogenic shock 3. Status post myocardial infarction 4. Ischemic cardiomyopathy 5. Dyslipidemia 6. Acute respiratory failure 7. renal insufficiency 8. diabetes 9. Anemi Plan: 01/21/17 15:20 1. Coronary artery disease 2. Cardiogenic shock 3. Status post myocardial infarction 4. Ischemic cardiomyopathy 5. Dyslipidemia 6. Acute respiratory failure 7. Renal insufficiency 8. Diabetes 9. Anemia 01/25/17 11:46 The date of this dictation is 01/25/2017. The patient is now extubated. He is feeling quite well. He is obviously sore and aching. Does not have other significant new complaints at this time. We have reviewed a bit of what is happening to him and answered his questions. I have seen the family though I have not spoken to him at length today. I have talked to the nursing staff about the patient. He is still getting IV amiodarone and I would continue that for 24 more hours of IV. I do not want to bump hard his GI tract with all kinds of complicated things immediately. So we will hold the amiodarone on IV for now and switch to p. o. in the morning as things are tolerated if things go well. We will watch his medications and his pressors and his vital signs. We can start up titrate some of his medications as the IV medications wear off. So far he is doing incredibly well. All his questions have been answered. Subjective: He is currently extubated. He is speaking. He is sore. No other major complaints right at this time. Objective: Vital Signs Temp Pulse Resp BP Pulse Ox 37.9 C 88 18 103/89 H 90 L 01/25/17 09:00 01/25/17 10:00 01/25/17 10:00 01/25/17 10:00 01/25/17 10:00 Microbiology 01/22/17 04:15 - Final Sputum, Induced/Suctioned Sputum Culture - Final Laboratory Results 01/24/17 05:00 01/25/17 11:00 01/24/17 01/25/17 01/26/17 05:59 05:59 05:59 Intake Total 1266 1357 Output Total 3330 2250 Balance -2064 -893 PT 36.1 SEC (12.0-15.0) H D 01/20/17 18:07 INR 3.55 (0.83-1.16) H 01/20/17 18:07 Physical Exam - Physical Exam General Appearance: moderate distress Respiratory: rhonchi, prolonged expiration Cardiac/Chest: regular rate, rhythm, systolic murmur Abdomen: non-tender, soft, No organomegaly Skin: mottled, pallor Extremities: No calf tenderness Neuro/Psych: No alert, No normal mood/affect ICD10 Worksheet Patient Problems: Problems Problem Status Onset STEMI (ST elevation myocardial infarction) Acute Spell of dizziness Acute
[2017-01-25] MEDS ORDERED: POTASSIUM Cl (KCl) 50 ML IV ONE (12:46)
[2017-01-25] MEDS: ALBUTEROL 3 ML DEYVIAL IH PRN ×2 (12:51→17:42)
[2017-01-25] MEDS: ACETYLCYSTEINE 10% 30 ML VIAL IH SCH ×2 (12:51→17:42)
[2017-01-25] MEDS: AMIODARONE HCL 200 ML IV SCH (17:04)
[2017-01-25 17:46] LABS: POTASSIUM 3.5 mEq/L (3.5-5.2)
[2017-01-25] MEDS: POTASSIUM Cl (KCl) 50 ML IV SCH ×3 (18:19→19:30)
[2017-01-25] MEDS: LORazepam 2 MG/ML INJ IVP PRN ×2 (18:53→21:01)
[2017-01-26] MEDS: ALBUTEROL 3 ML DEYVIAL IH PRN ×5 (00:05→22:57)
[2017-01-26] MEDS: ACETYLCYSTEINE 10% 30 ML VIAL IH SCH ×5 (00:06→22:58)
[2017-01-26 02:19] LABS: POTASSIUM 3.8 mEq/L (3.5-5.2)
[2017-01-26] MEDS ORDERED: POTASSIUM Cl (KCl) 50 ML IV ONE (02:36)
[2017-01-26] MEDS: SENNOSIDES 17.6 MG/10 ML UDL - IF LIQUID ORDERED TUBE SCH ×2 (02:38→08:38)
[2017-01-26] MEDS: AMIODARONE HCL 200 ML IV SCH (02:50)
[2017-01-26] MEDS: LORazepam 2 MG/ML INJ IVP PRN (04:39)
[2017-01-26 05:10] LABS: MAGNESIUM 2.4 mg/dL (1.6-2.3); POTASSIUM 4.2 mEq/L (3.5-5.2)
--- NOTE | 2017-01-26 05:48 | CPEKG ---
Heart Rate: 78 RR Interval: 769 P-R Interval: 176 QRSD Interval: 116 QT Interval: 424 QTC Interval: 484 P [place]: 63 QRS [place]: 81 T Wave [place]: 55 EKG Severity - ABNORMAL ECG - EKG Impression: SINUS RHYTHM EKG Impression: NONSPECIFIC INTRAVENTRICULAR CONDUCTION DELAY EKG Impression: INFERIOR INFARCT, AGE INDETERMINATE EKG Impression: CONSIDER POSTERIOR WALL INVOLVEMENT Electronically Signed By: Heron Hendricks 26-Jan-2017 08:45:17
[2017-01-26] MEDS ORDERED: DIAZEPAM 10 MG/2 ML SYR IVP PRN (06:20)
[2017-01-26] MEDS: ASPIRIN 81 MG CHEWABLE TAB TUBE SCH (08:38)
[2017-01-26] MEDS: TICAGRELOR 90 MG TAB TUBE SCH (08:38)
[2017-01-26] MEDS: FUROSEMIDE 40 MG/4 ML VIAL IVP SCH ×2 (08:38→15:34)
[2017-01-26] MEDS: ENOXAPARIN 40 MG/0.4 ML SYR SC SCH (08:39)
--- NOTE | 2017-01-26 09:47 | PDINTPN ---
[employer] Systems Safety Engineer Progress Note Assessment/Plan: Assessment/plan: * Acute hypoxemic respiratory failure-stable off mechanical ventilation * Coronary disease/status post myocardial infarction * Status post multiple coronary artery stents * Chronic obstructive pulmonary disease-continue nebs * History of hypertension * Shock-resolved * Intra-aortic balloon pump-now out * Tachycardia * History of excessive alcohol-follow closely for withdrawal symptoms * Sedation-adequate * Nutrition-on hold Case discussed with Nursing and Respiratory therapy Subjective: Up with PTOT. Pain is improved. Less breathless. Objective: Vital Signs Temp Pulse Resp BP Pulse Ox 37.0 C 81 24 H 123/67 H 100 01/26/17 04:00 01/26/17 08:00 01/26/17 08:00 01/26/17 08:00 01/26/17 08:00 Laboratory Results 01/24/17 05:00 01/26/17 04:41 01/25/17 01/26/17 01/27/17 05:59 05:59 05:59 Intake Total 1357 568 Output Total 2250 4900 Balance -893 -4332 PT 36.1 SEC (12.0-15.0) H D 01/20/17 18:07 INR 3.55 (0.83-1.16) H 01/20/17 18:07 Physical Exam - Physical Exam General Appearance: alert, no apparent distress EENT: PERRL/EOMI, normal ENT inspection Neck: non-tender, full range of motion, supple Respiratory: crackles (Few), No respiratory distress, No wheezing Cardiac/Chest: normal peripheral pulses, systolic murmur Abdomen: normal bowel sounds, non-tender, soft Male Genitalia: deferred Rectal: deferred Skin: normal color, warm/dry Extremities: normal range of motion, non-tender, normal inspection, normal capillary refill Neuro/Psych: no motor/sensory deficits, alert, normal mood/affect, oriented x 3 ICD10 Worksheet Patient Problems: Problems Problem Status Onset STEMI (ST elevation myocardial infarction) Acute Spell of dizziness Acute
--- NOTE | 2017-01-26 10:25 | SOAPPROG ---
LARS Progress Note Assessment/Plan: Assessment: Plan: 01/21/17 15:20 01/26/17 10:[address] segment elevation HI 2. Cardiac arrest 3. Circumflex stent/chronic total occlusion of the right coronary artery 4. cardiogenic shock 5 intra-aortic balloon pump 6 acute respiratory failure: Intubation 7 Status post circumflex thrombectomy 8 temporary pacemaker 9 ischemic cardiomyopathy 10 dyslipidemia 11 failed swallow examination Patient is doing very well right now. He is starting to get up with physical therapy. He has failed his swallow examination so he is taking his Brilinta per NG tube. He is getting his amiodarone IV. Perhaps tomorrow we can switch to p.o. amiodarone. He has no findings of heart failure. He has had no electrical instability. He has not had any mechanical complications from his myocardial infarction. He is making a slow but good recovery. Again his pressures are quite low. We can up titrate his cardiac meds as he ambulates a bit. All his questions have been answered. Subjective: He is sore. He is quite hoarse. He has no chest pain or chest tightness. He is very stiff. He clearly is weak. He has no orthopnea PND dyspnea exertion No significant cough No fevers chills He has no palpitations lightheadedness dizziness near-syncope. Objective: Vital Signs Temp Pulse Resp BP Pulse Ox 37.0 C 81 24 H 123/67 H 100 01/26/17 04:00 01/26/17 08:00 01/26/17 08:00 01/26/17 08:00 01/26/17 08:00 Laboratory Results 01/24/17 05:00 01/26/17 04:41 01/25/17 01/26/17 01/27/17 05:59 05:59 05:59 Intake Total 1357 568 Output Total 2250 4370 Balance -143 -4795 PT 36.1 SEC (12.0-15.0) H D 01/20/17 18:07 INR 3.55 (0.83-1.16) H 01/20/17 18:07 Physical Exam - Physical Exam General Appearance: moderate distress Respiratory: decreased breath sounds, rhonchi Cardiac/Chest: regular rate, rhythm, systolic murmur Abdomen: non-tender, soft, No organomegaly Skin: pallor Extremities: No calf tenderness Neuro/Psych: No normal mood/affect ICD10 Worksheet Patient Problems: Problems Problem Status Onset STEMI (ST elevation myocardial infarction) Acute Spell of dizziness Acute
[2017-01-26] MEDS ORDERED: LACTULOSE 20 GM/30 ML UDCUP PO PRN (10:51)
[2017-01-26] MEDS ORDERED: AMIODARONE HCL 900 MG in D5W 500 ML IV SCH (12:00)
[2017-01-26 15:07] LABS: POTASSIUM 3.5 mEq/L (3.5-5.2)
[2017-01-26] MEDS: POTASSIUM Cl (KCl) 50 ML IV SCH ×3 (15:35→17:24)
[2017-01-26] MEDS: SENNOSIDES/DOCUSATE SODIUM TAB PO SCH (20:14)
[2017-01-26] MEDS: TICAGRELOR 90 MG TAB PO SCH (20:14)
[2017-01-26] MEDS: GUAIFENESIN/DM 10 ML UDCUP PO PRN (23:07)
[2017-01-27] MEDS: ACETAMINOPHEN 650 MG/20.3 ML UDCUP PO PRN ×2 (01:50→21:23)
[2017-01-27 05:03] LABS: POTASSIUM 3.7 mEq/L (3.5-5.2)
[2017-01-27] MEDS: ALBUTEROL 3 ML DEYVIAL IH PRN ×4 (05:27→23:01)
[2017-01-27] MEDS: ACETYLCYSTEINE 10% 30 ML VIAL IH SCH ×4 (05:27→23:01)
[2017-01-27] MEDS ORDERED: POTASSIUM Cl (KCl) 50 ML IV ONE (11:11)
[2017-01-27] MEDS: SENNOSIDES/DOCUSATE SODIUM TAB PO SCH ×2 (11:11→20:45)
[2017-01-27] MEDS ORDERED: POTASSIUM Cl (KCl) 20 MEQ/50 ML BAG IV ONE (11:14)
[2017-01-27] MEDS: ENOXAPARIN 40 MG/0.4 ML SYR SC SCH (11:23)
[2017-01-27] MEDS: FUROSEMIDE 40 MG/4 ML VIAL IVP SCH ×2 (11:23→15:42)
[2017-01-27] MEDS: TICAGRELOR 90 MG TAB PO SCH ×2 (11:23→20:46)
[2017-01-27] MEDS: ASPIRIN 81 MG CHEWABLE TAB PO SCH (11:23)
--- NOTE | 2017-01-27 14:16 | PDCARPN ---
Cardiology Progress Note Chief Complaint: No cardiovascular complaints today Assessment/Plan: Assessment: Plan: Objective: Vital Signs (8 Hrs) Temp Pulse Resp BP Pulse Ox 01/27/17 10:00 78 29 H 126/73 H 95 01/27/17 08:05 87 130/74 H 95 01/27/17 08:00 36.8 C 74 26 H 109/72 97 Intake/Output (24 Hrs) 01/26/17 01/27/17 01/28/17 05:59 05:59 05:59 Intake Total 568 1770 Output Total 4900 2850 Balance -4332 -1080 Intake: Oral (ml) 0 900 IV Intake (ml) 379 497 IV Infused (ml) 189 373 Amiodarone HCl 540 mg In 189 373 D5w 300 ml @ 16.667 mls/ hr IV ONCE ONE Rx#: [id number] Output: Urine (ml) 4900 2850 Catheter 4900 2850 Other: Number of Stools Catheter 0 Result Diagrams: 01/24/17 05:00 01/27/17 04:45 ICD10 Worksheet Patient Problems: Problems Problem Status Onset STEMI (ST elevation myocardial infarction) Acute Spell of dizziness Acute
--- NOTE | 2017-01-27 14:22 | PDCARPN ---
Cardiology Progress Note Chief Complaint: No cardiovascular complaints today Assessment/Plan: Assessment: Patient is a 61 y/o male with known history of CAD with old occlusion of the RCA in the past, with further known history of HTN, HLP, COPD, and mod-severe alcohol use, who presented to [facility] with complaints of acute chest pains at rest. ECG with dynamic changes noted, and the patient was taken to the cardiac cardiac cath lab radiology technologist. Dr. Italo Hernandez performed PCI with thrombectomy to the LCX. Haemodynamic instablity was noted with IABP placed, temporary transvenous pacer, pressor support, and intubation (01-20-17). Echocardiogram from 01-23-17 with mild/ moderate LVEF suppression (40%). At four days out, IABP removal, pressure cessation, temp PPM and extubation had all been performed. Today, the patient is doing fair. Mild chest pains continue to be noted (query CPR rather than ischaemia). Ongoing monitor for ETOH withdrawal given history of abuse ( upwards of 7 drinks per day) Plan: (1) ASA therapy for life with CAD history (2) Brilinta for at least one year (possibly longer given the event noted) (3) Blood pressure would likely support the addition of low dose beta xochitl - given the LVEF suppression and the cardiovascular event, would add low dose therapy tonight (3.125 mg of Coreg QHS) (4) Uncertain why no statin therapy (query ETOH history), but given the CAD/ PCI history, this should be considered (5) Strong recommendations for reduction (cessation) of ETOH (6) Lasix to continue (with potassium supplement) while an inpatient (7) Aggressive OT/PT therapy - patient will need cardiac rehab Subjective: No cardiovascular complaints Reviewed/Discussed With: hospitalist, multidisciplinary team Objective: Vital Signs (8 Hrs) Temp Pulse Resp BP Pulse Ox 01/27/17 10:00 78 29 H 126/73 H 95 01/27/17 08:05 87 130/74 H 95 01/27/17 08:00 36.8 C 74 26 H 109/72 97 Intake/Output (24 Hrs) 01/26/17 01/27/17 01/28/17 05:59 05:59 05:59 Intake Total 568 1770 Output Total 4900 5560 Balance -5602 -6724 Intake: Oral (ml) 0 900 IV Intake (ml) 379 497 IV Infused (ml) 189 373 Amiodarone HCl 540 mg In 189 373 D5w 300 ml @ 16.667 mls/ hr IV ONCE ONE Rx#: [id number] Output: Urine (ml) 4900 2850 Catheter 4900 2850 Other: Number of Stools Catheter 0 Result Diagrams: 01/24/17 05:00 01/27/17 04:45 EKG: normal sinus rhythm with inferoposterior myocardial infarction Telemetry: sinus rhythm Echocardiogram: mild to moderate LVEF suppression to 40% - Physical Exam Constitutional: WDWN, healthy appearing, no apparent distress Eyes: PERRL, EOMI Ears, Nose, Mouth, Throat: moist mucous membranes Cardiovascular: regular rate and rhythm, no murmurs, no rubs, no gallops Peripheral Pulses: 2+: dorsalis-pedis (R), dorsalis-pedis (L) Respiratory: clear to auscultate bilat, no crackles, no wheezes Gastrointestinal: normoactive bowel sounds Skin: no rashes, no edema Musculoskeletal: muscular tenderness (to chest wall) Neurologic: AAOx3, CN II-XII grossly intact Psychiatric: cooperative, interactive, following commands ICD10 Worksheet Patient Problems: Problems Problem Status Onset STEMI (ST elevation myocardial infarction) Acute Spell of dizziness Acute
--- NOTE | 2017-01-27 15:09 | PDINTPN ---
Procurement Clerk Progress Note Assessment/Plan: Assessment: * Status post myocardial infarction 01/20, acute congestive heart failure, intra- aortic balloon pump. * Status post multiple coronary artery stents * Acute hypoxemic respiratory failure: Resolving, off mechanical ventilation, on 3L * Chronic obstructive pulmonary disease-continue nebs, bronchopulmonary therapy. * History of hypertension * History of excessive alcohol- no S/S of withdrawal symptoms * Nutrition-starting oral * Prophylactic anticoagulation: On Lovenox * GI prophylaxis: None currently, eating * Metabolic: No issues, on replacement protocols Plan: Continue present care in the intensive care unit today. Remains somewhat marginal regarding cardiopulmonary status. Follow clinical in cardiac status, follow laboratory and x-ray. Continue Lasix. Increase activity as tolerated with PT/OT. Began to look at discharge issues. He lives by himself in a cabin in [place], probably will need inpatient rehabilitation once ready to leave the hospital. 30 minutes of critical care time spent directly with the patient. Discussed with Cardiology, hospitalist, nursing, and the ICU multi disciplinary team. Objective: Vital Signs Temp Pulse Resp BP Pulse Ox 36.8 C 78 29 H 126/73 H 95 01/27/17 08:00 01/27/17 10:00 01/27/17 10:00 01/27/17 10:00 01/27/17 10:00 Microbiology 01/22/17 00:20 Blood Culture - Final Blood 01/22/17 00:20 Blood Culture - Final Blood Laboratory Results 01/24/17 05:00 01/26/17 01/27/17 01/28/17 05:59 05:59 05:59 Intake Total 568 1770 Output Total 4900 2850 Balance -4332 -1080 PT 36.1 SEC (12.0-15.0) H D 01/20/17 18:07 INR 3.55 (0.83-1.16) H 01/20/17 18:07 Physical Exam - Physical Exam General Appearance: alert, no apparent distress EENT: other (Nasal cannula in place) Neck: normal inspection Respiratory: lungs clear (Anteriorly, breath sounds coarse), rales (Rales present at bases), rhonchi (Some central congestion without olive rhonchi with cough), wheezing (No significant wheezing) Cardiac/Chest: regular rate, rhythm Abdomen: non-tender, soft (Overweight), No normal bowel sounds (Present, decreased) Male Genitalia: other (Noonan catheter in place, to be removed) Skin: normal color, warm/dry Extremities: pedal edema (Trace +) Neuro/Psych: no motor/sensory deficits, No cognition abnormalities ICD10 Worksheet Patient Problems: Problems Problem Status Onset STEMI (ST elevation myocardial infarction) Acute Spell of dizziness Acute
[2017-01-27] MEDS: AMIODARONE HCL 200 MG TAB PO SCH (15:42)
[2017-01-27] MEDS ORDERED: CARVEDILOL 3.125 MG TAB PO ONE (18:00)
[2017-01-28] MEDS: GUAIFENESIN/DM 10 ML UDCUP PO PRN ×2 (00:10→22:11)
[2017-01-28] MEDS: TEMAZEPAM 15 MG CAP PO PRN ×2 (01:53→22:10)
[2017-01-28] MEDS: ACETYLCYSTEINE 10% 30 ML VIAL IH SCH ×3 (05:13→17:44)
[2017-01-28 05:56] LABS: CHOLESTEROL 202 mg/dL (140-220); CHOLESTEROL/HDL RATIO 6.97 RATIO (1.00-4.97); HIGH DENSITY LIPOPROTEIN 29 mg/dL (40-65); LDL/HDL RATIO 4.52 RATIO (1.00-3.64); LOW DENSITY LIPOPROTEIN 131 mg/dL (80-100); NON-HIGH DENSITY LIPOPROTEIN 173 mg/dL (90-129); POTASSIUM 3.5 mEq/L (3.5-5.2); TRIGLYCERIDE 213 mg/dL (40-150); VERY LOW DENSITY LIPOPROTEINS 42 mg/dL (8-25)
[2017-01-28] MEDS ORDERED: POTASSIUM CL 20 MEQ TAB PO ONE (06:15)
[2017-01-28] MEDS: ACETAMINOPHEN 650 MG/20.3 ML UDCUP PO PRN ×3 (06:42→22:10)
[2017-01-28] MEDS ORDERED: NON-FORMULARY NEW DRUG (Rosuvastatin Calcium [Crestor 5mg] 5 MG) PO SCH (09:00)
[2017-01-28] MEDS ORDERED: ROSUVASTATIN CALCIUM 10 MG TAB PO SCH (09:00)
[2017-01-28] MEDS: AMIODARONE HCL 200 MG TAB PO SCH (09:26)
[2017-01-28] MEDS: TICAGRELOR 90 MG TAB PO SCH ×2 (09:27→21:43)
[2017-01-28] MEDS: ASPIRIN 81 MG CHEWABLE TAB PO SCH (09:27)
[2017-01-28] MEDS: ENOXAPARIN 40 MG/0.4 ML SYR SC SCH (09:29)
[2017-01-28] MEDS: FUROSEMIDE 40 MG/4 ML VIAL IVP SCH ×2 (09:30→15:30)
[2017-01-28] MEDS: SENNOSIDES/DOCUSATE SODIUM TAB PO SCH ×2 (09:32→22:01)
--- NOTE | 2017-01-28 10:55 | PDCARPN ---
Cardiology Progress Note Chief Complaint: No complaints today Assessment/Plan: Assessment: 01-28-17 No events overnight. Tolerance to the trial on Coreg (without acute reduction in blood pressures noted). Ambulation today with PT was well tolerated. No complaints of chest pains or pressure ... there continues to be a mild degree of discomfort to the chest wall (query CPR). PO intake of food (last night and this morning) has been tolerated. 01-27-17 Patient is a 61 y/o male with known history of CAD with old occlusion of the RCA in the past, with further known history of HTN, HLP, COPD, and mod-severe alcohol use, who presented to [facility] with complaints of acute chest pains at rest. ECG with dynamic changes noted, and the patient was taken to the cardiac labor employment associate. Dr. Italo Hernandez performed PCI with thrombectomy to the LCX. Haemodynamic instablity was noted with IABP placed, temporary transvenous pacer, pressor support, and intubation (01-20-17). Echocardiogram from 01-23-17 with mild/ moderate LVEF suppression (40%). At four days out, IABP removal, pressure cessation, temp PPM and extubation had all been performed. Today, the patient is doing fair. Mild chest pains continue to be noted (query CPR rather than ischaemia). Ongoing monitor for ETOH withdrawal given history of abuse ( upwards of 7 drinks per day) Plan: (1) ASA and Brilinta given the acute CV events and the newly stented LCX (2) Coreg to consistently be 3.135 mg twice per day (3) Lasix to continue with assessment of electrolytes (4) Transfer to the PCU today (5) Ongoing, inpatient OT/PT (6) Outpatient cardiac rehab to be established Subjective: No cardiovascular complaints Reviewed/Discussed With: multidisciplinary team Objective: Vital Signs (8 Hrs) Temp Pulse Resp BP Pulse Ox 01/28/17 10:00 79 19 122/74 H 94 01/28/17 08:00 36.5 C 75 22 H 106/72 98 01/28/17 06:00 71 26 H 121/77 H 99 01/28/17 04:00 36.9 C 74 24 H 111/70 99 Intake/Output (24 Hrs) 01/27/17 01/28/17 01/29/17 05:59 05:59 05:59 Intake Total 1770 1551 Output Total 2850 2600 450 Balance -5738 -1049 -450 Intake: Oral (ml) 900 720 IV Intake (ml) 497 831 IV Infused (ml) 373 Amiodarone HCl 540 mg In 373 D5w 300 ml @ 16.667 mls/ hr IV ONCE ONE Rx#: [id number] Output: Urine (ml) 2850 2600 450 Catheter 2850 1500 Urinal 1100 450 Other: Number of Voids Urinal 1 Number of Stools Urinal 1 Result Diagrams: 01/24/17 05:00 01/28/17 05:30 EKG: normal sinus rhythm ... ongoing inferior lead ST/T wave changes - Physical Exam Constitutional: WDWN, healthy appearing, no apparent distress Eyes: PERRL, EOMI Ears, Nose, Mouth, Throat: moist mucous membranes Cardiovascular: regular rate and rhythm, no murmurs, no rubs Peripheral Pulses: 2+: dorsalis-pedis (R), dorsalis-pedis (L) Respiratory: no crackles, reduced air movement, dullness to percussion Gastrointestinal: normoactive bowel sounds Skin: no rashes, no edema Musculoskeletal: no muscular tenderness Neurologic: AAOx3, CN II-XII grossly intact Psychiatric: cooperative, interactive, following commands ICD10 Worksheet Patient Problems: Problems Problem Status Onset STEMI (ST elevation myocardial infarction) Acute Spell of dizziness Acute
[2017-01-28] MEDS: CARVEDILOL 3.125 MG TAB PO SCH ×2 (11:22→18:39)
[2017-01-28] MEDS ORDERED: PROTOCOL POTASSIUM 1 DOSE MISC PRN (12:42)
--- NOTE | 2017-01-28 15:08 | PDINTPN ---
Clinical Nursing Director Progress Note Assessment/Plan: Assessment: * Status post myocardial infarction 01/20, acute congestive heart failure, intra- aortic balloon pump. * Status post multiple coronary artery stents * Acute hypoxemic respiratory failure: Resolving, off mechanical ventilation, on 2L * Chronic obstructive pulmonary disease-continue nebs, bronchopulmonary therapy. * History of hypertension * History of excessive alcohol- no S/S of withdrawal * Nutrition- On orals * Prophylactic anticoagulation: On Lovenox * GI prophylaxis: None currently, eating * Metabolic: No issues, on replacement protocols Plan: Continue present care. Transfer to PCU today. Follow clinical and cardiac status, follow laboratory and x-ray intermittently. Continue Lasix. Increase activity as tolerated with PT/OT. Began to look at discharge issues. He lives by himself in a cabin in [place], probably will need inpatient rehabilitation once ready to leave the hospital. Inpatient rehab consultation placed. 25 minutes of critical care time spent directly with the patient. Discussed with Cardiology, nursing, and the ICU multi disciplinary team. Subjective: Doing better. No specific complaints. Has some chest pain with coughing when he gets the nebulizer. Denies lightheadedness. Objective: Vital Signs Temp Pulse Resp BP Pulse Ox 37.0 C 77 25 H 104/79 91 L 01/28/17 12:30 01/28/17 12:30 01/28/17 12:30 01/28/17 12:30 01/28/17 12:30 Microbiology 01/22/17 00:20 Blood Culture - Final Blood 01/22/17 00:20 Blood Culture - Final Blood Laboratory Results 01/24/17 05:00 01/28/17 05:30 01/27/17 01/28/17 01/29/17 05:59 05:59 05:59 Intake Total 1770 1551 Output Total 2850 2600 800 Balance -1080 -1049 -800 PT 36.1 SEC (12.0-15.0) H D 01/20/17 18:07 INR 3.55 (0.83-1.16) H 01/20/17 18:07 Physical Exam - Physical Exam General Appearance: alert, no apparent distress, other (Up in chair) EENT: other (Nasal cannula at 2 L) Neck: normal inspection (No obvious JVD) Respiratory: lungs clear (Anteriorly), decreased breath sounds (At bases), rales (Few rales at bases bilaterally), No rhonchi, No wheezing Cardiac/Chest: regular rate, rhythm, systolic murmur, No gallop Abdomen: normal bowel sounds, non-tender, soft (Overweight) Male Genitalia: other (Urine catheter out) Skin: normal color, warm/dry Extremities: pedal edema Neuro/Psych: no motor/sensory deficits, No cognition abnormalities ICD10 Worksheet Patient Problems: Problems Problem Status Onset Spell of dizziness Acute STEMI (ST elevation myocardial infarction) Acute
[2017-01-28 19:27] LABS: POTASSIUM 3.5 mEq/L (3.5-5.2)
[2017-01-28] MEDS ORDERED: POTASSIUM CL 10 MEQ TAB PO ONE (19:37)
[2017-01-28] MEDS ORDERED: POTASSIUM CL 20 MEQ/15 ML UDCUP PO ONE (19:45)
[2017-01-28] MEDS ORDERED: LORazepam 1 MG TAB PO PRN ×2 (21:56→22:02)
[2017-01-29] MEDS: ACETYLCYSTEINE 10% 30 ML VIAL IH SCH ×4 (00:19→11:51)
[2017-01-29 04:49] LABS: HEMATOCRIT 34.8 % (40.0-51.0); HEMOGLOBIN 12.1 g/dL (13.7-17.5); MEAN CELL HEMOGLOBIN 32.5 pg (27.9-34.1); MEAN CELL HEMOGLOBIN CONCENTR. 34.8 g/dL (32.4-36.7); MEAN CELL VOLUME 93.5 fL (81.5-99.8); RED BLOOD CELL COUNT 3.72 10^6/uL (4.40-6.38)
[2017-01-29 05:55] LABS: ANION GAP 9 mEq/L (8-16); CALCIUM 8.4 mg/dL (8.5-10.4); CARBON DIOXIDE 30 mEq/l (22-31); CHLORIDE 93 mEq/L (97-110); CREATININE 1.1 mg/dL (0.7-1.3); GLOMERULAR FILTRATION RATE > 60; GLUCOSE 102 mg/dL (70-100); MAGNESIUM 2.1 mg/dL (1.6-2.3); POTASSIUM 3.5 mEq/L (3.5-5.2); SODIUM 132 mEq/L (134-144)
[2017-01-29] MEDS ORDERED: POTASSIUM CL 10 MEQ TAB PO ONE ×3 (06:07→20:55)
[2017-01-29] MEDS: SENNOSIDES/DOCUSATE SODIUM TAB PO SCH ×2 (07:23→22:04)
[2017-01-29] MEDS: CARVEDILOL 3.125 MG TAB PO SCH ×2 (08:31→18:14)
[2017-01-29] MEDS: AMIODARONE HCL 200 MG TAB PO SCH (08:31)
[2017-01-29] MEDS: FUROSEMIDE 40 MG/4 ML VIAL IVP SCH ×2 (08:32→18:14)
[2017-01-29] MEDS: ASPIRIN 81 MG CHEWABLE TAB PO SCH (08:32)
[2017-01-29] MEDS: ENOXAPARIN 40 MG/0.4 ML SYR SC SCH (08:32)
[2017-01-29] MEDS: TICAGRELOR 90 MG TAB PO SCH ×2 (08:32→22:04)
[2017-01-29] MEDS: ROSUVASTATIN CALCIUM 10 MG TAB PO SCH (08:32)
[2017-01-29] MEDS ORDERED: ACETAMINOPHEN 325 MG TAB PO PRN (09:54)
--- NOTE | 2017-01-29 15:47 | PDCARPN ---
Cardiology Progress Note Chief Complaint: Patient doing well today. Sitting up in chair. Mild complaints of chest wall discomfort continue Assessment/Plan: Assessment: 01-29-17 Patient without complaints at present. Move from ICU to PCU today. Ongoing work with PT. No new pathology on telemetry has been noted. Tolerating PO feeding. Patient tolerated the twice per day dosing of Coreg. Rehab placement is still pending 01-28-17 No events overnight. Tolerance to the trial on Coreg (without acute reduction in blood pressures noted). Ambulation today with PT was well tolerated. No complaints of chest pains or pressure ... there continues to be a mild degree of discomfort to the chest wall (query CPR). PO intake of food (last night and this morning) has been tolerated. 01-27-17 Patient is a 61 y/o male with known history of CAD with old occlusion of the RCA in the past, with further known history of HTN, HLP, COPD, and mod-severe alcohol use, who presented to [facility] with complaints of acute chest pains at rest. ECG with dynamic changes noted, and the patient was taken to the cardiac labor/excavator. Dr. Italo Hernandez performed PCI with thrombectomy to the LCX. Haemodynamic instablity was noted with IABP placed, temporary transvenous pacer, pressor support, and intubation (01-20-17). Echocardiogram from 01-23-17 with mild/ moderate LVEF suppression (40%). At four days out, IABP removal, pressure cessation, temp PPM and extubation had all been performed. Today, the patient is doing fair. Mild chest pains continue to be noted (query CPR rather than ischaemia). Ongoing monitor for ETOH withdrawal given history of abuse ( upwards of 7 drinks per day) Plan: (1) ASA and Brilinta given the acute CV events and the newly stented LCX (2) Coreg to consistently be 3.135 mg twice per day (3) Lasix to continue with assessment of electrolytes (4) Inpatient rehab assessment is pending Objective: Vital Signs (8 Hrs) Temp Pulse Resp BP Pulse Ox 01/29/17 14:33 36.7 C 75 20 100/57 L 98 01/29/17 12:30 78 94 01/29/17 11:53 36.7 C 70 29 H 97/65 L 100 01/29/17 07:52 36.9 C 75 16 108/68 100 Intake/Output (24 Hrs) 01/28/17 01/29/17 01/30/17 05:59 05:59 05:59 Intake Total 1551 850 Output Total 2600 1700 1000 Balance -1049 -850 -1000 Intake: Oral (ml) 720 700 IV Intake (ml) 831 150 Output: Urine (ml) 2600 1700 1000 Catheter 1500 Urinal 1100 1700 1000 Other: Intake Quantity Yes Sufficient Number of Voids Urinal 1 1 Number of Stools Urinal 1 1 Result Diagrams: 01/29/17 04:40 01/29/17 04:40 Telemetry: normal sinus rhythm - Physical Exam Constitutional: WDWN, healthy appearing, no apparent distress Eyes: PERRL, EOMI Ears, Nose, Mouth, Throat: moist mucous membranes Cardiovascular: regular rate and rhythm, no rubs, systolic murmur Peripheral Pulses: 2+: dorsalis-pedis (R), dorsalis-pedis (L) Respiratory: clear to auscultate bilat, no crackles, no wheezes, reduced air movement (to the bases) Gastrointestinal: normoactive bowel sounds Skin: no rashes Musculoskeletal: muscular tenderness (to chest wall) Neurologic: AAOx3, CN II-XII grossly intact ICD10 Worksheet Patient Problems: Problems Problem Status Onset STEMI (ST elevation myocardial infarction) Acute Spell of dizziness Acute
[2017-01-29 19:52] LABS: POTASSIUM 3.4 mEq/L (3.5-5.2)
--- NOTE | 2017-01-29 20:17 | SOAPPROG ---
SOAP Progress Note Assessment/Plan: Assessment: * Status post myocardial infarction 01/20, acute congestive heart failure, intra- aortic balloon pump. * Status post multiple coronary artery stents * Acute hypoxemic respiratory failure: Resolved, on 2L * Chronic obstructive pulmonary disease-continue O2, nebs, bronchopulmonary therapy. * History of hypertension * History of excessive alcohol- no S/S of withdrawal * Nutrition- On orals * Prophylactic anticoagulation: On Lovenox * GI prophylaxis: None currently, eating * Metabolic: No issues, on replacement protocols Plan: Continue present care. Follow clinical and cardiac status, follow laboratory and x-ray intermittently. Continue Lasix and bronchopulmonary therapies. Continue PT/OT, advance ambulation. He lives by himself in a cabin in [place], probably will need short-term inpatient rehabilitation once ready to leave the hospital. Discussed with Rehab. Anoxic injury seems unlikely. His most status is probably close to his baseline? Eventually, when he returns home , he likely will need oxygen in [place] and probably has needed this for some time. Subjective: Doing better today. More ambulatory. Up walking in the brown with nursing/PT still has some anterior chest discomfort. Refusing breathing treatments. Objective: Vital Signs Temp Pulse Resp BP Pulse Ox 36.7 C 80 20 97/59 L 96 01/29/17 19:47 01/29/17 19:47 01/29/17 19:47 01/29/17 19:47 01/29/17 19:47 Laboratory Results 01/29/17 04:40 01/29/17 18:45 01/28/17 01/29/17 01/30/17 05:59 05:59 05:59 Intake Total 1551 850 500 Output Total 2600 1700 1300 Balance -1049 -850 -800 PT 36.1 SEC (12.0-15.0) H D 01/20/17 18:07 INR 3.55 (0.83-1.16) H 01/20/17 18:07 Physical Exam - Physical Exam General Appearance: alert, no apparent distress EENT: other (Nasal cannula at 2 L) Neck: normal inspection (No obvious JVD) Respiratory: lungs clear, decreased breath sounds (At bases), rales (By basilar rales, relatively unimpressive, persist), No rhonchi, No wheezing Cardiac/Chest: regular rate, rhythm Abdomen: normal bowel sounds, non-tender, soft Skin: normal color, warm/dry Extremities: pedal edema (Trace) Neuro/Psych: no motor/sensory deficits (Moves all extremities), No cognition abnormalities (Probably a baseline. Requires some prompting.) ICD10 Worksheet Patient Problems: Problems Problem Status Onset Spell of dizziness Acute STEMI (ST elevation myocardial infarction) Acute
[2017-01-30 06:07] LABS: POTASSIUM 3.9 mEq/L (3.5-5.2)
[2017-01-30] MEDS: ROSUVASTATIN CALCIUM 10 MG TAB PO SCH (08:52)
[2017-01-30] MEDS: TICAGRELOR 90 MG TAB PO SCH (08:52)
[2017-01-30] MEDS: AMIODARONE HCL 200 MG TAB PO SCH (08:52)
[2017-01-30] MEDS: CARVEDILOL 3.125 MG TAB PO SCH (08:53)
[2017-01-30] MEDS: ASPIRIN 81 MG CHEWABLE TAB PO SCH (08:53)
[2017-01-30] MEDS: SENNOSIDES/DOCUSATE SODIUM TAB PO SCH (08:53)
[2017-01-30] MEDS: FUROSEMIDE 40 MG/4 ML VIAL IVP SCH (08:54)
[2017-01-30] MEDS: ENOXAPARIN 40 MG/0.4 ML SYR SC SCH (08:54)
[2017-01-30] MEDS ORDERED: oxyCODONE IR 5 MG TAB PO PRN (10:06)
[2017-01-30] MEDS ORDERED: AMIODARONE HCL 200 MG TAB PO SCH (10:20)
[2017-01-30] MEDS ORDERED: ALBUTEROL 60 PUFFS/8 GM MDI IH PRN (10:23)
[2017-01-30] MEDS ORDERED: POTASSIUM CL 10 MEQ TAB PO ONE (10:41)
[2017-01-30 12:09] VITALS: BP 96/72; PULSE 80; RESP 13; TEMP 98.1; O2SAT 99
--- NOTE | 2017-01-30 12:42 | ECHO ---
[id number] + + [address] : : [place] [address] : : [phone] + + Adult Echocardiographic Report + -------+ :Name: VALERI BRUCE WStudy Date: 01/30/2017 11:01 AM : : Hospital Admission Number: [id number] Locati on: 205: :: 1955 Gender: Male Height: 64 in : :Age: 61 yrs Race: AIA Weight: 187 lb : :Reason For Study: Recheck EF : : BSA: 1.9 meter s2 : + -------+ Left Ventricle EF estimate is 40%. LV basal/mid inferior and inferolateral case remain akinetic. Conclusion Limited 2-D echo. LV basal/mid inferior and inferolateral case remain akinetic. EF estimate is 40%. Grossly unchanged in comparison to prior Final Reading Physician: Alvaro Montgomery signed on 01/30/2017 12:41 PM Ordering Physician: Carmela Cruz Performed By: Lakesha Knott RDCS
--- NOTE | 2017-01-30 13:34 | PDIAF ---
- Diagnosis Diagnosis: STEMI/alcohol abuse Code Status: Full Code - Medication Management Discharge Medications: Medications to Continue on Transfer Acetaminophen [Tylenol 325mg (*)] 650 mg PO Q6 PRN #0 tab 01/30/17 [Last Taken Unknown] Albuterol [Proventil Inhaler HFA (*)] 2 puffs IH Q4HRS PRN #1 mdi 01/30/17 [ Last Taken Unknown] Amiodarone HCl [Pacerone (*)] 200 mg PO DAILY #30 tab 01/30/17 [Last Taken Unknown] Aspirin [Aspirin 81mg (*)] 81 mg PO DAILY #30 tab.chew 01/30/17 [Last Taken Unknown] Carvedilol [Coreg (*)] 3.125 mg PO BIDMEAL #60 tab 01/30/17 [Last Taken Unknown] Fluticasone/Salmeter 100/50Mcg [Advair 100/50 (*)] 1 puffs IH BID #1 disk [Last Taken Unknown] Furosemide [Lasix 80 MG (*)] 80 mg PO DAILY #30 tab 01/30/17 [Last Taken Unknown ] LORazepam [Ativan (*)] 1 mg PO Q4H PRN #0 tab 01/30/17 [Last Taken Unknown] Lisinopril [Zestril 2.5 mg (*)] 2.5 mg PO DAILY #30 tab 01/30/17 [Last Taken Unknown] Petrolat,Wht/Min Oil/Sod Chl [Refresh P.m. Ointment] 1 cuca EACHEYE HS PRN #0 opht.oint 01/30/17 [Last Taken Unknown] Polyethylene Glycol 3350 [Miralax 17 gm (*)] 17 gm PO DAILY PRN #0 pkt 01/30/17 [Last Taken Unknown] Rosuvastatin Calcium [Crestor] 10 mg PO DAILY #30 tab 01/30/17 [Last Taken Unknown] Sennosides/Docusate Sodium [Senokot-S] 1 - 2 tab PO BID #0 tab 01/30/17 [Last Taken Unknown] Temazepam [Restoril 15 MG (*)] 15 mg PO HS PRN #0 cap 01/30/17 [Last Taken Unknown] Ticagrelor [Brilinta] 90 mg PO BID #60 tab 01/30/17 [Last Taken Unknown] guaiFENesin/DEXTROMETHORPHAN [Robitussin Dm Oral Liquid (*)] 10 ml PO Q4 PRN #0 ml 01/30/17 [Last Taken Unknown] oxyCODONE IR [Oxycodone Ir (*)] 5 mg PO Q4HRS PRN #0 tab 01/30/17 [Last Taken Unknown] Discharge Medications: Refer to the Discharge Home Medication list for PRN reason. - Orders Services needed: Registered Nurse, Physical Therapy, Occupational Therapy, Speech Language Pathologist Diet Recommendation: cardiac -low fat low salt Diet Texture: Regular Texture Diet, Thin Liquids, Meds Whole in Puree - Labs/Radiology BMP Date: 02/10/17 CBC Date: 02/10/17 - Follow Up Care Current Providers and Referrals: Alok Catalan MD [Medical Doctor] - 02/10/17 9:45 am NONE *PRIMARY CARE P,. [Primary Care Provider] - As per Instructions Jose Miguel Pruitt MD [Medical Doctor] -
--- NOTE | 2017-01-30 15:51 | GDS ---
[f rep st] DISCHARGE SUMMARY DISCHARGE DIAGNOSES: 1. Acute ST-elevation myocardial infarction affecting the inferior wall, as evidenced by ST elevati ons and elevated troponin, status post percutaneous transluminal coronary angioplasty and stenting w ith thrombectomy to the left circumflex. 2. Hypertension. 3. Dyslipidemia. 4. Chronic obstructive pulmonary disease with former tobacco abuse. 5. Active alcohol use/abuse. 6. Need for intraaortic balloon pump in this admission. 7. Need for temporary transvenous pacer in this admission. 8. Need for pressor support in this admission. 9. Endotracheal tube intubation, extubated at the time of discharge. 10. Paroxysmal atrial fibrillation. 11. Coronary artery disease with old right coronary artery occlusion with a history of distant myoc ardial infarction. 12. Acute renal failure, resolved by the time of discharge. 13. Hypoxic respiratory failure, on 3 L per minute of supplemental oxygen. 14. Chest pain, likely as a result of receiving CPR in this admission. 15. Paroxysmal atrial fibrillation on amiodarone at time of discharge. 16. Dysphagia. CONSULTATIONS: Administrative Support Associate. PROCEDURES: 1. 01/20/2017, echo. 2. 01/20/2017, chest x-ray. 3. 01/18/2017, left heart catheterization. 4. 01/20/2017, PICC line. 5. 01/21/2017, echocardiogram. 6. 01/23/2017, echocardiogram. 7. 01/28/2017, chest x-ray. BRIEF HISTORY: Please see dictated H and P for complete details. The patient is a 61-year-old male . [place]. He presented on 01/20/2017 with chest pa in that had started that morning. HOSPITAL COURSE BY PROBLEM: 1. Acute STEMI. He was taken to the cardiac catheterization laboratory as he was found to have a t hrombotic, occluded left circumflex. This was treated with thrombectomy and drug-eluting stent, 2.5 x 12 mm. This was complicated by PEA, requiring CPR, followed by intubation. He was found to have thrombus affecting his left main and circumflex which was treated with thrombectomy. Prior to leav ing the cardiac catheterization laboratory, an intraaortic balloon pump was placed. He was extubate d and intraaortic balloon pump was removed 4 days later. 2. COPD. He has required breathing treatments, as well as supplemental oxygen throughout his hospit al stay. He is being discharged on Advair and p.r.n. albuterol. 3. Dyslipidemia. His home Crestor dose has been increased. 4. Hypertension. His blood pressures have been well controlled. Due to his ischemic cardiomyopathy , he has been started on Coreg in place of his metoprolol and lisinopril dose has been decreased. 5. PAF. He was in atrial fibrillation and IV amiodarone has resulted in conversion. He does have an elevated CHADS-VASc, with risk factors of heart failure and CAD. Currently, he is just being man aged with Brilinta and aspirin. His amiodarone dose has been decreased to 200 mg daily at the time of discharge. If he continues on this medication, he needs to be enrolled in our high-risk medicati on clinic. 6. Alcohol abuse. He drinks at least 7 drinks daily. He did have evidence of some withdrawal. His CIWA has been discontinued. 7. Hypoxic respiratory failure, likely due to CHF, as well as COPD. He can continue on oxygen. 8. Dysphagia. He has been recommended to have medication whole in puree and dysphagia diet. He is also recommended to have thin liquids. RESULTS PENDING: None. DIET: Cardiac with a dysphagia diet. ACTIVITY: As tolerated per inpatient rehab. DISCHARGE MEDICATIONS: Please see med reconciliation for complete details. He is being discharged on Tylenol, albuterol, amiodarone, carvedilol, Ticagrelor 90 twice daily, Crestor 10 mg p.o. daily, lisinopril 2.5 mg p.o. daily, carvedilol 3.125 p.o. twice daily, Advair. FOLLOWUP INSTRUCTIONS: Follow up with our transitional care physician, Dr. Catalan in 2 weeks' time. /[id number]/MODL
[2017-01-30] MEDS ORDERED: FLUTICASONE/SALMETER 100/50MCG DISKUS IH SCH (21:00)
[2017-01-31] MEDS ORDERED: LISINOPRIL 2.5 MG TAB PO SCH (09:00)
[2017-01-31] MEDS ORDERED: FUROSEMIDE 80 MG TAB PO SCH (09:00)
== END 2017-01-30 14:15 | DRG 215 ==
LOC: F2N 14:38 → F2W 01-29 14:29
PROVIDERS: ADMIT Internal Medicine Cardiovascular Disease; ATTEND Internal Medicine Cardiovascular Disease
PROC: 5A02210 Assistance with Cardiac Output using Balloon Pump, Continuous (ICD-10-PCS; principal; 2017-01-20)
PROC: 5A1221Z Performance of Cardiac Output, Continuous (ICD-10-PCS; principal; 2017-01-20)
PROC: 027034Z Dilation of Coronary Artery, One Artery with Drug-eluting Intraluminal Device, Percutaneous Approach (ICD-10-PCS; principal; 2017-01-20)
PROC: 5A1223Z Performance of Cardiac Pacing, Continuous (ICD-10-PCS; principal; 2017-01-20)
PROC: 02HA3RZ Insertion of Short-term External Heart Assist System into Heart, Percutaneous Approach (ICD-10-PCS; principal; 2017-01-20)
PROC: 02C03ZZ Extirpation of Matter from Coronary Artery, One Artery, Percutaneous Approach (ICD-10-PCS; principal; 2017-01-20)
PROC: B2111ZZ Fluoroscopy of Multiple Coronary Arteries using Low Osmolar Contrast (ICD-10-PCS; 2017-01-20)
PROC: 0BH17EZ Insertion of Endotracheal Airway into Trachea, Via Natural or Artificial Opening (ICD-10-PCS; 2017-01-20)
PROC: 5A1955Z Respiratory Ventilation, Greater than 96 Consecutive Hours (ICD-10-PCS; 2017-01-20)
PROC: 02PA3RZ Removal of Short-term External Heart Assist System from Heart, Percutaneous Approach (ICD-10-PCS; 2017-01-24)
DX: I21.21 ST elevation (STEMI) myocardial infarction involving left circumflex coronary artery (principal); R57.0 Cardiogenic shock; J96.01 Acute respiratory failure with hypoxia; N17.9 Acute kidney failure, unspecified; F10.239 Alcohol dependence with withdrawal, unspecified; I44.30 Unspecified atrioventricular block; I21.19 ST elevation (STEMI) myocardial infarction involving other coronary artery of inferior wall; I11.0 Hypertensive heart disease with heart failure; E78.5 Hyperlipidemia, unspecified; J44.9 Chronic obstructive pulmonary disease, unspecified; Z72.0 Tobacco use; I48.0 Paroxysmal atrial fibrillation; I25.10 Atherosclerotic heart disease of native coronary artery without angina pectoris; R13.10 Dysphagia, unspecified; I50.9 Heart failure, unspecified
CPT/HCPCS: 82947-QW; 85520-90; 92507-GN; 92523-GN; 92526-GN; 92610-GN; 96374; 97116-GP; 97162-GP; 97166-GO; 97530-GO; 97530-GP; 97535-GO; C1725; C1751; C1757; C1769; C1874; C1887; C9606; J0171; J0282; J0461; J0583; J0610; J1250; J1265; J1327; J1644; J1650; J1815; J1940; J2060; J2250; J2370; J2405; J2704; J2997; J3010; J3475; P9016; P9047; Q9967

== ENCOUNTER 2017-01-30 09:12 | Inpatient (IN) | payer MEDICAID ==
[2017-01-30] MEDS ORDERED: PETROLAT,WHT/MIN OIL/SOD CHL 3.5 GM OPHT.OINT EACHEYE PRN (15:20)
[2017-01-30] MEDS ORDERED: TEMAZEPAM 15 MG CAP PO PRN (15:20)
[2017-01-30] MEDS ORDERED: ALBUTEROL 60 PUFFS/8 GM MDI IH PRN (15:20)
[2017-01-30] MEDS ORDERED: LORazepam 1 MG TAB PO PRN (15:20)
[2017-01-30] MEDS ORDERED: GUAIFENESIN/DM 10 ML UDCUP PO PRN (15:20)
[2017-01-30] MEDS ORDERED: POLYETHYLENE GLYCOL 3350 17 GM PKT PO PRN (15:20)
[2017-01-30] MEDS ORDERED: oxyCODONE IR 5 MG TAB PO PRN (15:20)
[2017-01-30] MEDS ORDERED: BISACODYL 10 MG SUPP PR PRN (15:23)
--- NOTE | 2017-01-30 16:56 | GHP ---
[f rep st] HISTORY AND PHYSICAL Corrected report POST ADMISSION PHYSICIAN EVALUATION AND REHABILITATION TREATMENT PLAN DATE OF EVALUATION: 01/30/2017 TIME OF EVALUATION: 1510 REFERRING FACILITY: [facility]. REFERRING PHYSICIAN: Dr. Delgado. CONSULTING PHYSICIANS: He was seen in consultation by the Cardiology Service and he was managed by Pulmonary and Critical Care. REHABILITATION DIAGNOSES: Debility after myocardial infarction and percutaneous intervention with stenting. IMPAIRMENT GROUP: 0.9. ETIOLOGIC DIAGNOSIS: Cardiac. DATE OF ONSET: 01/20/2017. DATE OF SURGERY: He underwent cardiac catheterization on 01/20/2017. HISTORY OF PRESENT ILLNESS: The patient was admitted to [facility] on 01/20/2017 with chest pain. He had EKG changes consistent with an inferior wall myocardial infarction with ST elevation and he had an elevated troponin, also consistent with myocardial infarction. He was taken to the cardiac catheterization lab emergently. During his cardiac catheterization, he had cardiac arrest x2. He was intubated and he was given CPR. He had stenting of the circumflex coronary artery. He had thrombectomy of the circumflex as well. He had the placement of an intra-aortic balloon pump and temporary pacer wires. He remained intubated through 01/25/2017 due to congestive heart failure and pulmonary edema. The intra-aortic balloon pump was removed on 01/24/2017. He was deconditioned at the end of this course and is appropriate for inpatient rehabilitation. OTHER STUDIES AND LABS DURING HIS STAY: Most recent chest x-ray on 01/28/2017 showed cardiomegaly with pulmonary vascular congestion and mild hypoventilatory features. Additionally there was some left basilar subsegmental atelectasis. Echocardiogram on 01/30/2017 was limited to estimated ejection fraction, which was 40% with left ventricular basal mid inferior and inferior lateral case being akinetic. CBC on 01/29/2017 showed an elevated white blood cell count at 12.07, and anemia with hemoglobin of 12.1 and hematocrit of 34.8, platelet count was normal. Serum chemistry on 01/29/2017 showed a sodium of 132, chloride of 93, BUN was elevated at 41. Glucose was elevated at 102. He had a low calcium at 8.4. Potassium, CO2, anion gap and creatinine were within normal limits. A lipid panel run on 01/28/2017 showed elevated triglycerides of 213, LDL was high at 131, HDL was low at 29. Liver functions were within normal limits. TSH was normal. Urinalysis on 01/22/2017 was concentrated with a specific gravity of 1.031. There was trace ketones, 3+ blood, 1+ leukocyte esterase. Urine was not cultured. There were blood cultures and sputum cultures done on 01/22/2017 all of which were negative. PRECAUTIONS: He is a fall risk. ACTIVE COMORBIDITIES: He has no active tier 1, tier 2, or tier 3 comorbidities. PAST MEDICAL HISTORY: 1. Coronary artery disease. 2. Congestive heart failure. 3. COPD. 4. Psoriasis. 5. Dyslipidemia. 6. Hypertension. PAST SURGICAL HISTORY: He had a previous coronary catheterization in 2014 and he said at that time they were not able to do any stenting. PRE-HOSPITAL MEDICATIONS: 1. Albuterol 1 puff q.4 hours p.r.n. 2. Aspirin 81 mg p.o. daily. 3. Fluticasone/salmeterol 250/50 mcg 1 puff twice daily. 4. Metoprolol XL 50 mg p.o. daily. 5. Multivitamin 1 p.o. daily. 6. Lisinopril 5 mg p.o. twice daily. 7. Rosuvastatin 5 mg p.o. daily. 8. Amlodipine 5 mg p.o. daily. 9. Hydrocodone/acetaminophen 1 tablet q.6 hours. 10. Cyclobenzaprine 10 mg p.o. three times daily p.r.n. 11. Oxycodone/acetaminophen 5/325, 1 p.o. q.4-6 hours p.r.n. ADMISSION MEDICATIONS: 1. Acetaminophen 650 mg p.o. q.6 hours p.r.n. 2. Albuterol 2 puffs q.4 hours p.r.n. 3. Amiodarone 200 mg p.o. daily. 4. Aspirin 81 mg p.o. daily. 5. Carvedilol 3.125 mg p.o. twice daily. 6. Fluticasone/salmeterol 1 puff twice daily. 7. Furosemide 80 mg p.o. daily. 8. Guaifenesin/dextromethorphan 10 mL p.o. q.4 hours p.r.n. 9. Lisinopril 2.5 mg p.o. daily. 10. Lorazepam 1 mg p.o. q.4 hours p.r.n. 11. Oxycodone IR 5 mg p.o. q.4 hours p.r.n. 12. Refresh PM ointment 1 application each eye at bedtime. 13. Polyethylene glycol 17 g p.o. daily p.r.n. 14. Rosuvastatin 10 mg p.o. daily. 15. Senna 1-2 p.o. twice daily. 16. Temazepam 15 mg p.o. at bedtime p.r.n. 17. Ticagrelor 90 mg p.o. twice daily. ALLERGIES: There are no known drug allergies. FAMILY HISTORY: He has a family history of coronary artery disease. PSYCHOSOCIAL HISTORY: He is single. He lives in [place]. He is a retired construction controller living on disability. He thinks it is possible that he will discharge to his sister's house in [place]. Alternately he has a friend who has rental properties in [place] and he may discharge to 1 of these properties. He is not planning to immediately return to [place]. He is a nonsmoker and he has a history of extensive alcohol use up to 7 drinks a day. However, he denies having had any symptoms of alcohol withdrawal and says "I can leave it for a month." REVIEW OF SYSTEMS: He reports some chest wall pain. He has a cough and occasionally brings up sputum and blood. He denies dyspnea. He was not using oxygen prior to his hospitalization. He denies chest pain or palpitations, other than chest wall pain. He denies nausea, vomiting, constipation or diarrhea. He denies headache, vision changes, difficulty swallowing, weakness, numbness or tingling of the extremities. He has slight dysuria and was told that this was expected after having been catheterized. He has a hoarse voice, only since he was intubated and extubated. He did not have a hoarse voice previously. He denies lightheadedness. He denies joint pain or joint swelling , and he denies any skin sores. PHYSICAL EXAM: VITAL SIGNS: From this morning in the hospital; blood pressure was a 96/72, heart rate was 80, respiratory rate 13, oxygen saturation was 99% on 3 L. Temperature was 36.7 degrees. His weight on 01/23/2017 was recorded at 85.1 kg and today at the inpatient rehabilitation unit is recorded at 70.2 kg. GENERAL: This is a well-nourished, well-developed, overweight appearing man sitting up in bed, dressed in street clothes, cooperative, and in no acute distress. HEENT: Extraocular movements are intact. Pupils are equal, round, and reactive to light. Mucous membranes are moist. Dentition is in fair condition with several missing teeth. There are no oropharyngeal mucosal lesions. There is no posterior oropharyngeal mucus noted. He has Mallampati class 2 in terms of his airway. NECK: Supple. HEART: Regular rate and rhythm with no murmurs, rubs, or gallops. Heart sounds are somewhat distant. LUNGS: Clear to auscultation bilaterally. ABDOMEN: Soft, nontender, nondistended with normoactive bowel sounds and no hepatosplenomegaly. EXTREMITIES: There is no cyanosis, clubbing, or edema. Radial and dorsalis pedis pulses are 2+ bilaterally. NEUROLOGIC: He is alert and oriented to his location, the month and the year. He is off by 1 day on the date of the month, thinking that today is the ; however, he is accurate that today is . Cranial nerves 2-12 are grossly intact. There is no focal weakness, though he is stronger on the right upper extremity than the left but still is 5/5 in strength overall. Sensation is intact to light touch. He is able to arise from seated independently. He has near loss of balance while standing and is unable to maintain standing with his feet close together. SKIN: He has ecchymosis over the right medial forearm. He has faint psoriatic plaques over his elbows. CURRENT LEVEL OF FUNCTION: Per the preadmission report. Regarding diet, feeding, and swallowing, he is on a dysphagia 2 diet. He is noted to have mild to moderate dysphagia. Grooming was accomplished with standby assistance. Dressing was done seated with standby assistance. Toileting was done with standby assistance for clothing management, and contact guard for transfers. Regarding bowel and bladder, he was noted to be continent. For bed mobility, he required moderate assistance with voice cues. Transfers were accomplished with contact guard to minimal assistance using a 4-wheeled walker. Balance required standby assist for sitting and contact guard for standing. Endurance was fair. He was able to ambulate 150 feet with a front-wheeled walker with a slow mayco. He could not ambulate without an assistive device. Regarding cognition, he was noted to have mild to moderate impairment in attention, memory and problem solving. IMPRESSION: The patient is a 61-year-old man who had an inferior myocardial infarction on 01/20/2017. He was emergently catheterized and stented along with a thrombectomy. During the catheterization procedure, he had ventricular fibrillation and cardiac arrest x2 for which he received CPR and was intubated. After the procedure, he had cardiogenic shock requiring pressors and an intra- aortic balloon pump and fluid resuscitation. He was extubated after 4 days. The intra-aortic balloon pump was removed after 3 days and he has had gradual improvement in his condition to the point which he is appropriate for inpatient rehabilitation. Other hospital complications included anemia which has been improving, congestive heart failure and fluid overload treated with high-dose furosemide. He had hyponatremia with a sodium of 132 yesterday. His sodium was as low as 129 on 01/22/2017. He has a history of alcohol abuse but showed no signs or symptoms of alcohol withdrawal. He was noted to have cognitive impairment with reduced working memory as well as impaired balance. His goal is to return home with his sister who lives in [place], or as he told me possibly to a rental unit belonging to 1 of his friends. For a safe discharge he will need to achieve independence with grooming, dressing, bed mobility and transfers, modified independence for bathing and ambulation with the least restrictive device on level and unleveled surfaces. It is hoped that his diet will be advanced to regular. It is likely that he will continue to require assistance for shopping and household management. He will need to have a good understanding of activity guidelines post MO. He will receive therapy on a modified schedule with physical therapy, occupational therapy, and speech and language pathology for 30-60 minutes per day on 5-7 days per week. His expected duration of stay is 5-7 days. It is anticipated that after discharge he will continue to benefit from outpatient therapy including occupational therapy, speech and language pathology and physical therapy, and these may begin as Home Health services prior to outpatient. Additionally, he will likely benefit from cardiac rehabilitation. ASSESSMENT AND PLAN: 1. Debility status post hospitalization for myocardial infarction with percutaneous intervention and stenting and 4 days of intubation for respiratory failure, 3 days requiring an intra-aortic balloon pump for circulatory support. Physical therapy and occupational therapy to optimize his mobility and activities of daily living. 2. Cognitive impairment and mild dysphagia to be assessed and treated per Speech and Language Pathology. 3. Coronary artery disease status post myocardial infarction and stenting, additionally episodes of ventricular fibrillation. Continue medication with amiodarone, aspirin, carvedilol and ticagrelor. 4. Dyslipidemia. Continue rosuvastatin. 5. Congestive heart failure. His furosemide has been tapered to 40 mg p.o. daily. He will have daily weights. He is additionally on lisinopril 2.5 mg p.o. daily and carvedilol 3.125 mg p.o. twice daily. If possible, depending on his fluid balance and blood pressures, carvedilol and lisinopril will be titrated and furosemide may be tapered. 6. Chronic obstructive pulmonary disease. Continue inhalers. 7. Psoriasis. If he has bothersome symptoms these will be treated with a topical steroid. 8. Pain management with pain condition being likely rib fractures status post CPR x2. He was using IV morphine as recently as this morning at the hospital. He has been discharged with acetaminophen and oxycodone, which will be continued. 9. Deep venous thrombosis risk. Enoxaparin was discontinued upon discharge from the hospital. He will be evaluated regarding his mobility and if it is adequate he will not require pharmacologic anticoagulation. We will continue dual anti-platelet therapy for his coronary artery disease. 10. Hypoxemic respiratory failure has resolved. He continues on supplemental oxygen. He will have incentive spirometry as well as treatment of chronic obstructive pulmonary disease and congestive heart failure. It is hoped that he will no longer be requiring oxygen when he discharges. /[id number]/MODL Neelima WT, 01/31/17, kal [place]
[2017-01-30] MEDS: CARVEDILOL 3.125 MG TAB PO SCH (18:28)
[2017-01-30] MEDS: TICAGRELOR 90 MG TAB PO SCH (20:55)
[2017-01-30] MEDS: SENNOSIDES/DOCUSATE SODIUM TAB PO SCH (20:55)
[2017-01-30] MEDS: FLUTICASONE/SALMETER 100/50MCG DISKUS IH SCH (21:00)
[2017-01-30] MEDS: ACETAMINOPHEN 325 MG TAB PO PRN (23:23)
[2017-01-31] MEDS: ACETAMINOPHEN 325 MG TAB PO PRN ×2 (08:06→16:59)
[2017-01-31] MEDS: ROSUVASTATIN CALCIUM 10 MG TAB PO SCH (08:39)
[2017-01-31] MEDS: SENNOSIDES/DOCUSATE SODIUM TAB PO SCH ×2 (08:39→21:46)
[2017-01-31] MEDS: CARVEDILOL 3.125 MG TAB PO SCH ×2 (08:39→21:18)
[2017-01-31] MEDS: ASPIRIN 81 MG CHEWABLE TAB PO SCH (08:41)
[2017-01-31] MEDS: AMIODARONE HCL 200 MG TAB PO SCH (08:42)
[2017-01-31] MEDS: TICAGRELOR 90 MG TAB PO SCH ×2 (08:43→21:47)
[2017-01-31] MEDS: FLUTICASONE/SALMETER 100/50MCG DISKUS IH SCH ×2 (08:44→21:46)
[2017-01-31] MEDS ORDERED: FUROSEMIDE 80 MG TAB PO SCH (09:00)
[2017-01-31] MEDS ORDERED: FUROSEMIDE 40 MG TAB PO SCH (09:00)
--- NOTE | 2017-01-31 09:18 | SOAPPROG ---
SOAP Progress Note Assessment/Plan: Assessment: 61 yo M s/p hospitalization for myocardial infarction with percutaneous intervention and stenting on 01/20/17 and 4 days of intubation for respiratory failure, 3 days requiring an intra-aortic balloon pump for circulatory support, with debility: * Debility. Physical therapy and occupational therapy to optimize his mobility and activities of daily living. * Cognitive impairment and mild dysphagia to be assessed and treated per Speech and Language Pathology. * Chest wall pain due to CPR X 2, with likely rib fractures. Continue acetaminophen. Trial of tramadol. D/C oxycodone as it has not helped. NSAIDs relatively contraindicated with CHF. * Congestive heart failure. His furosemide has been tapered to 40 mg p.o. daily starting 01/31/17. Daily weights. Continue lisinopril 2.5 mg p.o. daily and carvedilol 3.125 mg p.o. twice daily. If possible, depending on his fluid balance and blood pressures, carvedilol and lisinopril will be titrated and furosemide may be tapered. * Coronary artery disease status post myocardial infarction and stenting, additionally episodes of ventricular fibrillation. Continue amiodarone, aspirin , carvedilol and ticagrelor. * Dyslipidemia. Continue rosuvastatin. * Chronic obstructive pulmonary disease. Continue inhalers. * Psoriasis. If he has bothersome symptoms these will be treated with a topical steroid. * Deep venous thrombosis risk. Enoxaparin was discontinued upon discharge from the hospital. Ambulating well; does not require pharmacologic anticoagulation. We will continue dual anti-platelet therapy for his coronary artery disease. * Hypoxia . He continues on supplemental oxygen. He will have incentive spirometry as well as treatment of chronic obstructive pulmonary disease and congestive heart failure. It is hoped that he will no longer be requiring oxygen when once discharges. 01/31/17 14:42 Subjective: C/O cough and chest wall pain overnight, and poor sleep. Says acetaminophen works better than oxycodone: "all it does is get me high and I still hurt." Denies f/c. Unsure if morphine worked better in the hospital than oxycodone. No n/v/c/d. Objective: Vital Signs Temp Pulse Resp BP Pulse Ox 36.8 C 73 14 92/57 L 95 01/31/17 06:26 01/31/17 08:39 01/31/17 06:26 01/31/17 08:39 01/31/17 06:26 01/30/17 01/31/17 02/01/17 05:59 05:59 05:59 Intake Total 150 Balance 150 Physical Exam - Physical Exam General Appearance: WD/WN, alert, no apparent distress Respiratory: normal breath sounds, No crackles, No rhonchi, No wheezing Cardiac/Chest: regular rate, rhythm, No edema, No JVD Skin: normal color, warm/dry Neuro/Psych: no motor/sensory deficits, alert, normal mood/affect, oriented x 3 ICD10 Worksheet Patient Problems: Problems Problem Status Onset STEMI (ST elevation myocardial infarction) Acute Spell of dizziness Acute
--- NOTE | 2017-01-31 09:19 | PDOREHIP ---
Admission [facility] - Admission - 3 Day Assessment Period Admission Date/Day 1: 01/30/17 Day 2: 01/31/17 Day 3: 02/01/17 - Active Diagnoses Comorbidities and Co-existing Conditions at Admission: 88771. None of the Above - Skin Conditions Unhealed Pressure Ulcer (1 or more/Stage 1 or >)-Admission: 0. No
[2017-01-31] MEDS ORDERED: traMADol 50 MG TAB PO PRN (09:42)
[2017-01-31] MEDS: LISINOPRIL 2.5 MG TAB PO SCH (10:46)
[2017-01-31 15:23] LABS: % IMMATURE GRANULYOCYTES 1.4 % (0.0-1.1); ABSOLUTE IMMATURE GRANULOCYTES 0.17 10^3/uL (0.00-0.10); ADD DIFF? NO; ADD MORPH? NO; ADD SCAN? NO; ATYPICAL LYMPHOCYTE FLAG 30 (0-99); FRAGMENT RBC FLAG 0 (0-99); HEMATOCRIT 39.4 % (40.0-51.0); HEMOGLOBIN 13.6 g/dL (13.7-17.5); LEFT SHIFT FLG 10 (0-99); LIPEMIA HEMOLYSIS FLAG 90 (0-99); MEAN CELL HEMOGLOBIN 32.1 pg (27.9-34.1); MEAN CELL HEMOGLOBIN CONCENTR. 34.5 g/dL (32.4-36.7); MEAN CELL VOLUME 92.9 fL (81.5-99.8); MEAN PLATELET VOLUME 10.4 fL (8.7-11.7); PLATELET CLUMPS FLAG 0 (0-99); PLATELET COUNT 472 10^3/uL (150-400); RED BLOOD CELL COUNT 4.24 10^6/uL (4.40-6.38); RED CELL DISTRIBUTION WIDTH 13.8 % (11.5-15.2)
[2017-01-31 15:26] LABS: COLOR YELLOW; LEUKOCYTE ESTERASE,URINE NEGATIVE (NEGATIVE); NITRITE,URINE NEGATIVE (NEGATIVE)
[2017-01-31 15:39] LABS: ANION GAP 13 mEq/L (8-16); CALCIUM 8.8 mg/dL (8.5-10.4); CARBON DIOXIDE 29 mEq/l (22-31); CHLORIDE 87 mEq/L (97-110); CREATININE 1.4 mg/dL (0.7-1.3); GLOMERULAR FILTRATION RATE 51; GLUCOSE 127 mg/dL (70-100); POTASSIUM 3.9 mEq/L (3.5-5.2); SODIUM 129 mEq/L (134-144)
[2017-01-31 15:54] LABS: VITAMIN D 25-HYDROXY TOTAL 37.2 ng/mL (30-100)
[2017-02-01] MEDS: ACETAMINOPHEN 325 MG TAB PO PRN ×2 (01:16→19:13)
[2017-02-01 07:25] LABS: ANION GAP 14 mEq/L (8-16); CALCIUM 9.2 mg/dL (8.5-10.4); CARBON DIOXIDE 27 mEq/l (22-31); CHLORIDE 88 mEq/L (97-110); CREATININE 1.2 mg/dL (0.7-1.3); GLOMERULAR FILTRATION RATE > 60; GLUCOSE 97 mg/dL (70-100); POTASSIUM 3.6 mEq/L (3.5-5.2); SODIUM 129 mEq/L (134-144)
[2017-02-01] MEDS: AMIODARONE HCL 200 MG TAB PO SCH (08:34)
[2017-02-01] MEDS: ASPIRIN 81 MG CHEWABLE TAB PO SCH (08:34)
[2017-02-01] MEDS: LISINOPRIL 2.5 MG TAB PO SCH (08:34)
[2017-02-01] MEDS: ROSUVASTATIN CALCIUM 10 MG TAB PO SCH (08:35)
[2017-02-01] MEDS: TICAGRELOR 90 MG TAB PO SCH ×2 (08:35→20:30)
[2017-02-01] MEDS: SENNOSIDES/DOCUSATE SODIUM TAB PO SCH ×2 (08:35→20:30)
[2017-02-01] MEDS: FLUTICASONE/SALMETER 100/50MCG DISKUS IH SCH ×2 (08:41→20:29)
--- NOTE | 2017-02-01 13:14 | SOAPPROG ---
SOAP Progress Note Assessment/Plan: Assessment: 61 yo M s/p hospitalization for myocardial infarction with percutaneous intervention and stenting on 01/20/17 and 4 days of intubation for respiratory failure, 3 days requiring an intra-aortic balloon pump for circulatory support, with debility: * Debility. Physical therapy and occupational therapy to optimize his mobility and activities of daily living. * Cognitive impairment and mild dysphagia to be assessed and treated per Speech and Language Pathology. * Chest wall pain due to CPR X 2, with likely rib fractures. Continue acetaminophen. Trial of tramadol beneficial. D/C oxycodone as it has not helped. NSAIDs relatively contraindicated with CHF. * Congestive heart failure. His furosemide has been tapered to 40 mg p.o. daily starting 01/31/17. Daily weights. Continue lisinopril 2.5 mg p.o. daily and carvedilol 3.125 mg p.o. twice daily. If possible, depending on his fluid balance and blood pressures, carvedilol and lisinopril will be titrated and furosemide may be tapered. * Coronary artery disease status post myocardial infarction and stenting, additionally episodes of ventricular fibrillation. Continue amiodarone, aspirin , carvedilol and ticagrelor. * SRIDHAR?: CR has improved from 1.4 now down to 1.2. * Dyslipidemia. Continue rosuvastatin. * Chronic obstructive pulmonary disease. Continue inhalers. * Psoriasis. If he has bothersome symptoms these will be treated with a topical steroid. * Deep venous thrombosis risk. Enoxaparin was discontinued upon discharge from the hospital. Ambulating well; does not require pharmacologic anticoagulation. We will continue dual anti-platelet therapy for his coronary artery disease. * Hypoxia . He continues on supplemental oxygen. He will have incentive spirometry as well as treatment of chronic obstructive pulmonary disease and congestive heart failure. It is hoped that he will no longer be requiring oxygen when once discharges. Plan: Cont Dr Gutierrez's rehab treatment plan 02/01/17 13:11 Subjective: Mildly anxious regarding future lifestyle changes. referred to his primary rehab team to answer questions, review guidelines and restrictions. No F/C/CP/SOB/N/V/D/C Objective: Vital Signs Temp Pulse Resp BP Pulse Ox 36.8 C 77 16 103/70 97 02/01/17 07:32 02/01/17 07:32 02/01/17 07:32 02/01/17 08:34 02/01/17 07:32 Laboratory Results 01/31/17 12:15 02/01/17 06:10 01/31/17 02/01/17 02/02/17 05:59 05:59 05:59 Intake Total 150 2640 240 Output Total 2200 Balance 150 440 240 Physical Exam - Physical Exam General Appearance: alert, no apparent distress Neck: supple Respiratory: lungs clear Cardiac/Chest: regular rate, rhythm Skin: normal color, warm/dry Extremities: pedal edema Neuro/Psych: no motor/sensory deficits, alert, normal mood/affect, other (no acute changes) ICD10 Worksheet Patient Problems: Problems Problem Status Onset STEMI (ST elevation myocardial infarction) Acute Spell of dizziness Acute
[2017-02-02] MEDS: ACETAMINOPHEN 325 MG TAB PO PRN ×2 (00:29→17:16)
[2017-02-02] MEDS: TICAGRELOR 90 MG TAB PO SCH ×2 (07:44→20:01)
[2017-02-02] MEDS: ASPIRIN 81 MG CHEWABLE TAB PO SCH (07:44)
[2017-02-02] MEDS: ROSUVASTATIN CALCIUM 10 MG TAB PO SCH (07:45)
[2017-02-02] MEDS: SENNOSIDES/DOCUSATE SODIUM TAB PO SCH ×2 (07:45→20:01)
[2017-02-02] MEDS: LISINOPRIL 2.5 MG TAB PO SCH (07:45)
[2017-02-02] MEDS: AMIODARONE HCL 200 MG TAB PO SCH (07:45)
[2017-02-02 08:57] LABS: ANION GAP 13 mEq/L (8-16); CALCIUM 8.9 mg/dL (8.5-10.4); CARBON DIOXIDE 27 mEq/l (22-31); CHLORIDE 92 mEq/L (97-110); CREATININE 1.2 mg/dL (0.7-1.3); GLOMERULAR FILTRATION RATE > 60; GLUCOSE 89 mg/dL (70-100); POTASSIUM 3.6 mEq/L (3.5-5.2); SODIUM 132 mEq/L (134-144)
[2017-02-02] MEDS: FLUTICASONE/SALMETER 100/50MCG DISKUS IH SCH ×2 (09:13→20:00)
[2017-02-02] MEDS: CARVEDILOL 3.125 MG TAB PO SCH (13:37)
--- NOTE | 2017-02-02 14:12 | SOAPPROG ---
SOAP Progress Note Assessment/Plan: Assessment: 61 yo M s/p hospitalization for myocardial infarction with percutaneous intervention and stenting on 01/20/17 and 4 days of intubation for respiratory failure, 3 days requiring an intra-aortic balloon pump for circulatory support, with debility: * Debility. Physical therapy and occupational therapy to optimize his mobility and activities of daily living. * Cognitive impairment: improving. Cont Speech/Cog therapy. * Chest wall pain due to CPR X 2, with likely rib fractures. Continue acetaminophen. Trial of tramadol beneficial. D/C oxycodone as it has not helped. NSAIDs relatively contraindicated with CHF. * Congestive heart failure. His furosemide has been tapered to 40 mg p.o. daily starting 01/31/17. Daily weights. Continue lisinopril 2.5 mg p.o. daily and carvedilol 3.125 mg p.o. twice daily. If possible, depending on his fluid balance and blood pressures, carvedilol and lisinopril will be titrated and furosemide may be tapered. * Coronary artery disease status post myocardial infarction and stenting, additionally episodes of ventricular fibrillation. Continue amiodarone, aspirin , carvedilol and ticagrelor. * SRIDHAR?: CR has improved from 1.4 now down to 1.2. * Dyslipidemia. Continue rosuvastatin. * Chronic obstructive pulmonary disease. Continue inhalers. * Psoriasis. If he has bothersome symptoms these will be treated with a topical steroid. * DVT risk. Enoxaparin discontinued as pt is ambulating well; does not require pharmacologic anticoagulation. Continue dual anti-platelet therapy for his coronary artery disease. * Hypoxia . He continues on supplemental oxygen. He will have incentive spirometry as well as treatment of chronic obstructive pulmonary disease and congestive heart failure. It is hoped that he will no longer be requiring oxygen when once discharges. Plan: Cont Dr Gutierrez's rehab treatment plan. Coreg had been held, but resumed today per Dr Gutierrez's order. BP's still running low, with subjective c/o of lightheadedness. Records reflect that Lasix was not continued upon admit to rehab. Recommend that BP continue to be monitored on coreg and lisinipril. And consider tapering down if BP remains low. 02/02/17 14:17 Subjective: No new problems or C/O's In good spirits Good STM, carry over No F/C/CP(except rib pain)/SOB/N/V/D/C Objective: Vital Signs Temp Pulse Resp BP Pulse Ox 36.8 C 82 19 117/60 98 02/02/17 08:00 02/02/17 08:00 02/02/17 08:00 02/02/17 08:00 02/02/17 08:00 Laboratory Results 01/31/17 12:15 02/02/17 06:20 02/01/17 02/02/17 02/03/17 05:59 05:59 05:59 Intake Total 2640 1600 600 Output Total 2200 1000 Balance 440 600 600 Physical Exam - Physical Exam General Appearance: alert, no apparent distress Neck: supple Respiratory: lungs clear Cardiac/Chest: regular rate, rhythm Extremities: No pedal edema, No calf tenderness Neuro/Psych: no motor/sensory deficits, alert, normal mood/affect, oriented x 3 , other (no acute changes) ICD10 Worksheet Patient Problems: Problems Problem Status Onset STEMI (ST elevation myocardial infarction) Acute Spell of dizziness Acute
[2017-02-03 07:29] VITALS: TEMP 97.7
[2017-02-03] MEDS: ACETAMINOPHEN 325 MG TAB PO PRN ×2 (07:31→20:02)
[2017-02-03] MEDS: SENNOSIDES/DOCUSATE SODIUM TAB PO SCH ×2 (07:32→20:02)
[2017-02-03] MEDS: AMIODARONE HCL 200 MG TAB PO SCH (07:32)
[2017-02-03] MEDS: TICAGRELOR 90 MG TAB PO SCH ×2 (07:33→20:02)
[2017-02-03] MEDS: ROSUVASTATIN CALCIUM 10 MG TAB PO SCH (07:33)
[2017-02-03] MEDS: ASPIRIN 81 MG CHEWABLE TAB PO SCH (07:33)
[2017-02-03] MEDS: FLUTICASONE/SALMETER 100/50MCG DISKUS IH SCH ×2 (07:34→20:02)
[2017-02-03 08:07] LABS: ANION GAP 16 mEq/L (8-16); CALCIUM 9.5 mg/dL (8.5-10.4); CARBON DIOXIDE 26 mEq/l (22-31); CHLORIDE 93 mEq/L (97-110); CREATININE 1.2 mg/dL (0.7-1.3); GLOMERULAR FILTRATION RATE > 60; GLUCOSE 86 mg/dL (70-100); POTASSIUM 3.8 mEq/L (3.5-5.2); SODIUM 135 mEq/L (134-144)
--- NOTE | 2017-02-03 09:44 | SOAPPROG ---
SOAP Progress Note Assessment/Plan: Assessment: 61 yo M s/p hospitalization for myocardial infarction with percutaneous intervention and stenting on 01/20/17 and 4 days of intubation for respiratory failure, 3 days requiring an intra-aortic balloon pump for circulatory support, with debility: * Debility. Initial FIM 110 on 02/03/17. Independent in room and on unit as of 02/03/17. Continue physical therapy and occupational therapy to optimize his mobility and activities of daily living. * Cognitive impairment and mild dysphagia to be assessed and treated per Speech and Language Pathology. MOCA 30/30 on 2nd test; 1530 previously but he was not completely cooperative with therapist. * Chest wall pain due to CPR X 2, with likely rib fractures. Continue acetaminophen. Not using tramadol. * Congestive heart failure. His furosemide was 40 mg p.o. on 01/31/17, then discontinued starting 02/01/17. Daily weights. Continue carvedilol 3.125 mg p.o. twice daily. D/C lisinopril for low BP. * Coronary artery disease status post myocardial infarction and stenting, additionally episodes of ventricular fibrillation. Continue amiodarone, aspirin , carvedilol and ticagrelor. * Dyslipidemia. Continue rosuvastatin. * Chronic obstructive pulmonary disease. Continue inhalers. * H/O EtOH abuse. Advised against excessive consumption mahsa re risk of falling on dual antiplatelet therapy. * Psoriasis. If he has bothersome symptoms these will be treated with a topical steroid. * Deep venous thrombosis risk. Enoxaparin was discontinued upon discharge from the hospital. Ambulating well; does not require pharmacologic anticoagulation. We will continue dual anti-platelet therapy for his coronary artery disease. * Hypoxia . Resolved since 02/01/17. He will have incentive spirometry as well as treatment of chronic obstructive pulmonary disease and congestive heart failure. Attended staffing, 15 min. D/W case mgmt, nursing, PT, OT, THREAD LASTER. Plans to discharge to sister's home in [place], [place] with assistance of friends. Most likely follow-up with new PCP and nurse charge rn will be arranged by sister in [place]; otherwise to see Dr. Catalan CHF nurse charge rn, 02/10/17, with CBC & BMP the same day. 02/03/17 11:55 Subjective: Feels ready to go home. Plans to go to sister's home in [place]. No cough/ dyspnea, sleeping well. Still has chest wall pain and usung acetaminophen. Objective: Vital Signs Temp Pulse Resp BP Pulse Ox 36.5 C 71 16 95/60 L 92 02/03/17 07:28 02/03/17 07:28 02/03/17 07:28 02/03/17 07:28 02/03/17 07:28 Laboratory Results 01/31/17 12:15 02/03/17 06:15 02/02/17 02/03/17 02/04/17 05:59 05:59 05:59 Intake Total 1600 840 100 Output Total 1000 700 Balance 600 140 100 - Time Spent With Patient Time Spent With Patient: Greater than 35 minutes floor time today, including more than 50% of time in coordination of care during staffing meeting, and counseling patient. Physical Exam - Physical Exam General Appearance: WD/WN, alert, no apparent distress EENT: other (hoarse voice) Respiratory: normal breath sounds, No crackles, No rhonchi, No wheezing Cardiac/Chest: regular rate, rhythm, No edema, No JVD Neuro/Psych: no motor/sensory deficits, alert, normal mood/affect, oriented x 3 ICD10 Worksheet Patient Problems: Problems Problem Status Onset STEMI (ST elevation myocardial infarction) Acute Spell of dizziness Acute
[2017-02-03] MEDS: LISINOPRIL 2.5 MG TAB PO SCH (13:31)
[2017-02-04] MEDS: ACETAMINOPHEN 325 MG TAB PO PRN (02:05)
[2017-02-04 06:16] VITALS: BP 103/56; PULSE 65; RESP 18; O2SAT 92
[2017-02-04] MEDS: ASPIRIN 81 MG CHEWABLE TAB PO SCH (08:24)
[2017-02-04] MEDS: TICAGRELOR 90 MG TAB PO SCH (08:24)
[2017-02-04] MEDS: SENNOSIDES/DOCUSATE SODIUM TAB PO SCH (08:24)
[2017-02-04] MEDS: ROSUVASTATIN CALCIUM 10 MG TAB PO SCH (08:24)
[2017-02-04] MEDS: AMIODARONE HCL 200 MG TAB PO SCH (08:24)
[2017-02-04] MEDS: FLUTICASONE/SALMETER 100/50MCG DISKUS IH SCH (08:25)
[2017-02-04] MEDS: CARVEDILOL 3.125 MG TAB PO SCH (08:25)
--- NOTE | 2017-02-04 20:39 | GDS ---
[f rep st] DISCHARGE SUMMARY ADMITTING DIAGNOSIS: Debility status post ST-elevation myocardial infarction and percutaneous intervention and stenting. DISCHARGE DIAGNOSES: 1. Chest wall pain due to CPR x2 with likely rib fractures. 2. Congestive heart failure. CONSULTATIONS: There were none. PROCEDURE: There were none. COMPLICATIONS: There were none. HISTORY/HOSPITAL COURSE: The patient sustained an ST-elevation myocardial infarction on 01/20/2017. He had emergent cardiac catheterization with stenting. He had pulseless electrical activity arrest x2 during the procedure and underwent CPR. He had hypotension after the procedure and required an intra -aortic balloon pump for circulatory support for 3 days. He had respiratory failure and had intubation for 4 days. Once he was extubated and off the balloon pump, he soon was ready for inpatient rehabilitation. He did very well, and had rapid recovery of his activities of daily living and mobility. His initial functional independence measure was scored on 02/03/2017 after 4 days, and it was 110 which is consistent with independent living. He was made independent in his room and on the rehabilitation unit as of 2016. He had congestive heart failure and was on high dose furosemide in the hospital. He was discharged to inpatient rehabilitation on 40 mg p.o. daily. He had low blood pressure and furosemide was discontinued on 02/01/2017. His weights were stable. He also had arrived with carvedilol 3.125 mg p.o. twice daily, and lisinopril 2.5 mg twice daily. Lisinopril was discontinued due to his low blood pressure. With the discontinuation of these medications, even though the blood pressure remained low, he did not have symptoms of lightheadedness, nor did he have hypoxia, weight gain or edema which would have been consistent with decompensated congestive heart failure. There was cognitive impairment noted initially, as well as mild dysphagia. These recovered quickly. He was given a [place] Cognitive Assessment, initially scored 15/30, but subsequently scored 30/30. He had a history of alcohol abuse. He reported that he had consumed as much as 7 drinks a day. He was counseled on alcohol cessation or reduction. He does not feel that this would be difficult for him. He was advised against excessive consumption especially regarding the risk of falling while on dual anti-platelet therapy. LABS AND STUDIES DURING HIS STAY: CBC showed almost normal hemoglobin/ hematocrit of 13.6 and 39.4. Additionally he had an elevated white blood cell count of 12.3, elevated platelet count at 472. However he had no signs or symptoms of infection, so this test was not repeated nor was there further investigation. He had a low sodium on admission of 129. He was placed on a fluid restriction and his sodium improved to 135 on 02/03/2017. He appeared mildly dehydrated with a BUN of 28 and creatinine 1.2. This however had improved with the discontinuation of furosemide from a BUN of 41 and a creatinine of 1.4. Vitamin D level was checked and was normal at 37.2. Urinalysis revealed 1+ blood, and otherwise was within normal limits. PHYSICAL EXAM ON THE DAY OF DISCHARGE: VITALS: Blood pressure is 103/56. Pulse is 65. Respiratory rate is 18. Oxygen saturation is 92% on room air. HEART: Regular rate and rhythm with no murmurs, rubs or gallops. No jugular venous distention. LUNGS: Clear to auscultation bilateral ABDOMEN: Soft, non-tender, non-distenced with normoactive bowel sounds EXTREMITIES: No edema CONDITION UPON DISCHARGE: Good. ACTIVITY: Ad tamar but caution regarding driving. DIET: Cardiac. DATE OF NEXT APPOINTMENT: Plan from the hospital was to follow up with director community health nursing, Dr. Catalan on 02/10/2017. However he is planning to discharge to [facility] where his sister and other family members and his followup will be with primary care provider, Kenia Edwards and with director community health nursing Hill Silva, and to see each 1 of them within a week of discharge. MEDICATIONS AT DISCHARGE: 1. Senna/docusate 1-2 p.o. twice daily. 2. Refresh PM ointment to each eye p.r.n. 3. Aspirin 81 mg p.o. daily. 4. Acetaminophen 650 mg p.o. q.6 hours p.r.n. 5. Albuterol 2 puffs q.4 hours p.r.n. 6. Amiodarone 200 mg p.o. daily. 7. Carvedilol 3.125 mg p.o. twice daily. 8. Fluticasone/salmeterol 100/50 mcg 1 puff twice daily. 9. Rosuvastatin 10 mg p.o. daily. 10. Ticagrelor 90 mg p.o. twice daily. ISSUES TO BE ADDRESSED AT FOLLOW UP: 1. CARDIOPULMONARY STATUS: His ejection fraction was 40% when last checked in the hospital. He will follow up with Cardiology. 2. FUNCTIONAL STATUS: He appears to have full function at an independent level. No rehabilitation services were ordered on his discharge, and he will follow up with his new primary care provider, Kenia Edwards. 3. HISTORY OF ALCOHOL ABUSE: This also can be addressed by his new primary care provider. TIME SPENT: Greater than 35 minutes were spent on this discharge, including coordination of care and medication reconciliation. Copy requested to: Kenia Silva /[id number]/MODL MTDD
--- NOTE | 2017-02-05 09:28 | PDOREHIP ---
Admission [facility] - Admission - 3 Day Assessment Period Admission Date/Day 1: 01/30/17 Day 2: 01/31/17 Day 3: 02/01/17 Discharge [facility] - Discharge - 3 Day Assessment Period 2 Days Prior to Anticipated Discharge Date: 02/02/17 1 Day Prior to Anticipated Discharge Date: 02/03/17 Anticipated Discharge Date: 02/04/17 - Discharge Skin Conditions Unhealed Pressure Ulcer (1 or more/Stage 1 or >)-Discharge: 0. No
== END 2017-02-04 11:24 | disposition home or self-care (01) | DRG 949 ==
LOC: BREH 14:46
PROVIDERS: ADMIT Internal Medicine; ATTEND Internal Medicine
DX: Z48.812 Encounter for surgical aftercare following surgery on the circulatory system (principal); I21.19 ST elevation (STEMI) myocardial infarction involving other coronary artery of inferior wall; Z95.5 Presence of coronary angioplasty implant and graft; Z86.74 Personal history of sudden cardiac arrest; I25.10 Atherosclerotic heart disease of native coronary artery without angina pectoris; I50.9 Heart failure, unspecified; R53.81 Other malaise; R41.89 Other symptoms and signs involving cognitive functions and awareness; R13.10 Dysphagia, unspecified; S22.49XD Multiple fractures of ribs, unspecified side, subsequent encounter for fracture with routine healing; D64.9 Anemia, unspecified; J44.9 Chronic obstructive pulmonary disease, unspecified; E78.5 Hyperlipidemia, unspecified; I10 Essential (primary) hypertension; L40.9 Psoriasis, unspecified; F10.10 Alcohol abuse, uncomplicated
CPT/HCPCS: 92507-GN; 92522-GN; 97112-GP; 97116-GP; 97161-GP; 97165-GO; 97530-GO; 97535-GO

== ENCOUNTER 2018-02-05 09:30 | Emergency (ER) | payer MEDICAID ==
[2018-02-05] MEDS ORDERED: PENICILLIN VK 500 MG TAB PO ONE (10:59)
--- NOTE | 2018-02-05 11:03 | EDPHY ---
H & P Time Seen by Provider: 02/05/18 10:50 HPI/ROS: HPI Facial swelling. 62-year-old male on foot. This patient reports that 2-3 hours ago he noticed that he had right-sided facial swelling and a swollen lymph node on the right side of his neck. He is concerned he may have a dental infection. He denies any jaw pain, facial pain or dental pain. No history of trauma. He reports that his swelling is better now. No voice changes. No difficulty breathing. No other complaints. ROS: Constitutional: No fever, no chills. No weakness. No lightheadedness. Eyes: No discharge. No changes in vision. ENT: No sore throat. No nasal congestion or rhinorrhea. Respiratory: No cough. No shortness of breath. Cardiac: No chest pain, no palpitations. Musculoskeletal: No back pain. No neck pain. No myalgias or arthralgias. Skin: No rashes. Neurological: No headache. No focal weakness or altered sensation. Past medical history: ID, COPD, psoriasis, hyperlipidemia, hypertension, hernia repair, cardiac arrest with CPR. Social history: Denies alcohol. Here by himself. Physical Exam: General Appearance: Alert, no distress. This patient is responding to questions appropriately and in full sentences. This patient appears well- hydrated and well-nourished. Eyes: Pupils equal and round no pallor or injection. No lid edema, erythema or injection. ENT, Mouth: Poor dentition. Left lower 3rd molar is decayed and the only tooth on that side of his mandible. No kathleen gingival swelling, swelling of the buccal mucosa is or pain on apical compression of this tooth. Mucous membranes are moist. The pharyngeal tissues are unremarkable. No edema or swelling. No asymmetry suggestive of abscess. No erythema or exudates. Examination of the facial tissues reveals no evidence of swelling or edema. No erythema. No tenderness on palpation. He has a mildly swollen lymph node upper lateral neck on the left side just beneath the mandible. No associated swelling or erythema. Upper airway sounds are clear on auscultation of his neck. No voice changes. No stridor. Neurological: Motor sensory function is grossly intact. Cranial nerves are normal. Gait is normal. Skin: Warm and dry, no rashes. Musculoskeletal: Neck is supple and nontender. No pain on flexion of the neck. Extremities are symmetrical. All joints range without pain or impingement. Psychiatric: No agitation. No depression. Database: EKG: Imaging: Procedures: Emergency department course: Vital signs reviewed and are unremarkable. He is afebrile. No evidence of dental infection or facial infection on exam. Medication allergies reviewed. Will start the patient on oral pen VK in the emergency department and prescribe him this medication. Discussed follow-up through dental aide or another dental clinic. He is in agreement. He feels comfortable going home. Return to emergency department precautions reviewed with him. I will prescribe him penicillin to be taken over the next 5-7 days. All of his questions were answered. He was discharged in good condition. Differential Diagnosis: The differential diagnosis on this patient includes but is not limited to dental infection, dental inflammation. Facial cellulitis, erysipelas, mandibular trauma, dental trauma unlikely. This represents a partial list of diagnoses considered. These considerations are based on history, physical exam , past history, reassessment and diagnostic testing. Smoking Status: Former smoker Constitutional: Initial Vital Signs Temperature (C) 36.7 C 02/05/18 09:39 Heart Rate 58 L 02/05/18 09:39 Respiratory Rate 16 02/05/18 09:39 Blood Pressure 136/78 H 02/05/18 09:39 O2 Sat (%) 96 02/05/18 09:39 O2 Delivery Mode Room Air Allergies/Adverse Reactions: No Known Allergies Allergy (Verified 02/05/18 09:39) Home Medications: Medication Instructions Recorded Acetaminophen [Tylenol 325mg (*)] 650 mg PO Q6 PRN #0 tab 01/30/17 Aspirin [Aspirin 81mg (*)] 81 mg PO DAILY #30 tab.chew 01/30/17 Petrolat,Wht/Min Oil/Sod Chl 1 cuca EACHEYE HS PRN #0 opht.oint 01/30/17 [Refresh P.m. Ointment] Sennosides/Docusate Sodium 1 - 2 tab PO BID #0 tab 01/30/17 [Senokot-S] Albuterol [Proventil Inhaler HFA 2 puffs IH Q4HRS PRN #1 mdi 02/03/17 (*)] Amiodarone HCl [Pacerone (*)] 200 mg PO DAILY #30 tab 02/03/17 Carvedilol [Coreg (*)] 3.125 mg PO BIDMEAL #60 tab 02/03/17 Fluticasone/Salmeter 100/50Mcg 1 puffs IH BID #1 disk 02/03/17 [Advair 100/50 (*)] Rosuvastatin Calcium [Crestor] 10 mg PO DAILY #30 tab 02/03/17 Ticagrelor [Brilinta] 90 mg PO BID #60 tab 02/03/17 Penicillin V Potassium 500 mg PO QID #28 tablet 02/05/18 Departure - Departure Disposition: Home, Routine, Self-Care Clinical Impression: Left facial swelling, Poor dentition Condition: Good Instructions: Toothache (ED) Additional Instructions: Read and follow provided instructions. Follow-up with a dentist at 1 of the referred dental clinics. You will have to call them for appointment or you can go to their walk-in clinic. Take medication as prescribed. Ibuprofen dosin mg every 6 hours with meals for the next 3 days only. Take only as needed for pain. Return to the emergency department for worsening symptoms, fever, dental pain, facial pain or swelling, any sensation of swelling in your throat, difficulty breathing or other serious concerns. Referrals: [facility] [Outside] - As per Instructions [facility] [Outside] - As per Instructions [facility] [Outside] - As per Instructions Prescriptions: Penicillin V Potassium 500 mg PO QID #28 tablet
[2018-02-05 11:17] VITALS: BP 113/69
== END 2018-02-05 11:15 | disposition home or self-care (01) ==
DX: R22.0 Localized swelling, mass and lump, head (principal); K08.89 Other specified disorders of teeth and supporting structures; I25.2 Old myocardial infarction; J44.9 Chronic obstructive pulmonary disease, unspecified; I10 Essential (primary) hypertension; Z79.82 Long term (current) use of aspirin; Z87.891 Personal history of nicotine dependence

== ENCOUNTER 2018-12-24 08:51 | Observation (INO) | payer MEDICAID ==
--- NOTE | 2018-12-24 09:12 | EDPHY ---
H & P Time Seen by Provider: 12/24/18 08:57 HPI/ROS: CHIEF COMPLAINT: Nausea, lightheaded, dyspnea times 24 hr HISTORY OF PRESENT ILLNESS: 63-year-old male with medical history significant for CHF, cardiac arrest with ST-elevation OR in December 2016 with subsequent cardiac stenting, [place] by ambulance [place], complaining of nausea, lightheadedness, dyspnea for the past 24 hr. No home oxygen. No chest pain. No syncope. No back pain. No abdominal pain. No epigastric pain. PRIMARY CARE PROVIDER: REVIEW OF SYSTEMS: 10 systems reviewed and negative with the exception of the elements mentioned in the history of present illness PAST MEDICAL & SURGICAL HISTORY: Cardiac arrest with ST-elevation OR December 2016. Cardiac stenting. CHF. SOCIAL HISTORY:Nonsmoker. Lives in [place] self[place]described [place] with [place] running water near [place] PHYSICAL EXAM (Prior to examination, patient consented to physical exam, hands were washed and my usual and customary physical exam procedures followed) 1) GENERAL: Well-developed, well-nourished, alert and oriented. Appears to be in no acute distress. Speaking full sentences 2) HEAD: Normocephalic, atraumatic 3) HEENT: Pupils equal, round, reactive to light bilaterally. Sclera anicteric. 4) NECK: Full range of motion, no meningeal signs. 5) LUNGS: Clear auscultation bilaterally, no wheezes, no rhonchi, no retractions. 6) HEART: Regular rate and rhythm, no murmur, no heave, no gallop. 7) ABDOMEN: No guarding, no rebound, no focal tenderness, negative McBurney's, negative Bang's, negative Rovsing's, negative peritoneal sign, 8) MUSCULOSKELETAL: Moving all extremities, no focal areas of tenderness, no obvious trauma. No peripheral edema or discoloration. 9) BACK: No CVA tenderness, no midline vertebral tenderness, no fluctuance, no step-off, no obvious trauma, no visual or palpable abnormality. 10) SKIN: No rash, no petechiae. 11) Psychiatric: Patient is oriented X 3, there is no agitation. DIFFERENTIAL DIAGNOSIS: In no particular order, including but not limited to myocardial ischemia, pulmonary embolus, chest wall pain, pleural inflammation and pulmonary infectious causes. - Medical/Surgical History Hx Asthma: No Hx Chronic Respiratory Disease: Yes Hx Diabetes: No Hx Cardiac Disease: Yes Hx Renal Disease: No Hx Cirrhosis: No Hx Alcoholism: Yes Hx HIV/AIDS: No Hx Splenectomy or Spleen Trauma: No Other PMH: OR, COPD, psoriasis, hyperlipidemia, HTN,. hernia repair, back prob , cardiac stents, arrest with CPR - Social History Smoking Status: Former smoker Constitutional: Initial Vital Signs Temperature (C) 36.6 C 12/24/18 09:08 Heart Rate 67 12/24/18 09:08 Respiratory Rate 18 12/24/18 09:08 Blood Pressure 178/87 H 12/24/18 09:08 O2 Sat (%) 97 12/24/18 09:08 O2 Delivery Mode Room Air Allergies/Adverse Reactions: No Known Allergies Allergy (Verified 02/05/18 09:39) Home Medications: Medication Instructions Recorded Albuterol [Proventil Inhaler HFA 1 - 2 puffs IH Q4H PRN 12/24/18 (*)] Aspirin [Aspirin 81mg (*)] 81 mg PO DAILY 12/24/18 Atorvastatin Calcium [Lipitor 10 10 mg PO HS 12/24/18 mg (*)] Fluticasone/Salmeter 250/50Mcg 1 puffs IH BID 12/24/18 [Advair 250/50 (*)] Ibuprofen [Motrin (*)] 200 mg PO DAILY PRN 12/24/18 Lisinopril [Zestril 10 mg (*)] 10 mg PO DAILY 12/24/18 Medical Decision Making - Diagnostics Imaging Results: Imaging Impressions Chest X-Ray 12/24/18 09:09 Impression: 1. No active cardiopulmonary disease seen. ED Course/Re-evaluation: 9:12 a.m.: I reviewed the patient's old medical records. He has significant medical history. He is was discussed with secondary supervising physician Dr. Garrett Ling in the ER. Will obtain laboratory studies and plan on more than likely hospital admission. 10:30 a.m.: I reviewed the patient's diagnostic results. Given the patient's significant cardiac history recommended admission to the hospital which he is agreeable with. Consultation with hospitalist, admit to Dr. Harry Fan. - Data Points Laboratory Results: Laboratory Results 12/24/18 09:08 12/24/18 09:08 12/24/18 12/24/18 12/24/18 09:25 09:08 09:08 WBC RBC Hgb Hct MCV MCH MCHC RDW Plt Count MPV Neut % (Auto) Lymph % (Auto) [place] % (Auto) Eos % (Auto) Baso % (Auto) Nucleat RBC Rel Count Absolute Neuts (auto) Absolute Lymphs (auto) Absolute Monos (auto) Absolute Eos (auto) Absolute Basos (auto) Absolute Nucleated RBC Immature Gran % Immature Gran # D-Dimer 0.42 ug/mLFEU ug/mLFEU (0.00-0.50) Sodium 136 mEq/L mEq/L (135-145) Potassium 4.2 mEq/L mEq/L (3.5-5.2) Chloride 99 mEq/L mEq/L (97-110) Carbon Dioxide 22 mEq/l mEq/l (22-31) Anion Gap 15 mEq/L H mEq/L (6-14) BUN 15 mg/dL mg/dL (7-23) Creatinine 1.2 mg/dL mg/dL (0.7-1.3) Estimated GFR > 60 Glucose 119 mg/dL H mg/dL (70-100) Calcium 10.1 mg/dL mg/dL (8.5-10.4) Total Bilirubin 1.1 mg/dL mg/dL (0.1-1.4) Conjugated Bilirubin 0.3 mg/dL mg/dL (0.0-0.5) Unconjugated Bilirubin 0.8 mg/dL mg/dL (0.0-1.1) AST 39 IU/L IU/L (17-59) ALT 46 IU/L IU/L (21-72) Alkaline Phosphatase 78 IU/L IU/L (38-126) POC Troponin I 0.06 ng/mL ng/mL (0.00-0.08) NT-Pro-B Natriuret Pep 3460 pg/mL H pg/mL (0-125) Total Protein 8.1 g/dL g/dL (6.3-8.2) Albumin 4.9 g/dL g/dL (3.5-5.0) Lipase 125 IU/L IU/L (23-300) 12/24/18 09:08 WBC 9.19 10^3/uL 10^3/uL (3.80-9.50) RBC 5.36 10^6/uL 10^6/uL (4.40-6.38) Hgb 18.1 g/dL H g/dL (13.7-17.5) Hct 51.5 % H % (40.0-51.0) MCV 96.1 fL fL (81.5-99.8) MCH 33.8 pg pg (27.9-34.1) MCHC 35.1 g/dL g/dL (32.4-36.7) RDW 14.0 % % (11.5-15.2) Plt Count 288 10^3/uL 10^3/uL (150-400) MPV 10.4 fL fL (8.7-11.7) Neut % (Auto) 80.3 % H % (39.3-74.2) Lymph % (Auto) 8.6 % L % (15.0-45.0) [place] % (Auto) 9.8 % % (4.5-13.0) Eos % (Auto) 0.8 % % (0.6-7.6) Baso % (Auto) 0.3 % % (0.3-1.7) Nucleat RBC Rel Count 0.0 % % (0.0-0.2) Absolute Neuts (auto) 7.38 10^3/uL H 10^3/uL (1.70-6.50) Absolute Lymphs (auto) 0.79 10^3/uL L 10^3/uL (1.00-3.00) Absolute Monos (auto) 0.90 10^3/uL H 10^3/uL (0.30-0.80) Absolute Eos (auto) 0.07 10^3/uL 10^3/uL (0.03-0.40) Absolute Basos (auto) 0.03 10^3/uL 10^3/uL (0.02-0.10) Absolute Nucleated RBC 0.00 10^3/uL 10^3/uL (0-0.01) Immature Gran % 0.2 % % (0.0-1.1) Immature Gran # 0.02 10^3/uL 10^3/uL (0.00-0.10) D-Dimer Sodium Potassium Chloride Carbon Dioxide Anion Gap BUN Creatinine Estimated GFR Glucose Calcium Total Bilirubin Conjugated Bilirubin Unconjugated Bilirubin AST ALT Alkaline Phosphatase POC Troponin I NT-Pro-B Natriuret Pep Total Protein Albumin Lipase Point of Care Test Results: Chemistry 12/24/18 09:25 POC Troponin I 0.06 ng/mL ng/mL (0.00-0.08) Departure - Departure Disposition: [facility] Inpatient Acute Condition: Fair
[2018-12-24 09:22] LABS: PLATELET COUNT 288 10^3/uL (150-400)
--- NOTE | 2018-12-24 12:36 | CPEKG ---
Test Reason : OPEN Blood Pressure : / mmHG Vent. Rate : 056 BPM Atrial Rate : 056 BPM P-R Int : 177 ms QRS Dur : 112 ms QT Int : 454 ms P-R-T Axes : 051 044 -35 degrees QTc Int : 439 ms Sinus rhythm Inferior infarct, age indeterminate Confirmed by Garrett Ling ([id number]) on 12/24/2018 12:36:10 PM Referred By: Garrett Ling Confirmed By:Garrett Ling
[2018-12-24] MEDS ORDERED: IBUPROFEN 200 MG TAB PO PRN (13:16)
--- NOTE | 2018-12-24 15:20 | SOAPPROG ---
[facility] Progress Note Assessment/Plan: Assessment: Cardiology consultation performed and dictated. 63 y/o man with following cardiac and medical issues: --CAD s/p inferior STEMI and ADITYA to LCX 01/08 --HTN --chronic ischemic systolic CHF last LVEF 40% --moderate to heavy ETOH --hyperlipidemia --medical non-compliance Last cardiac cath 01/08 showed MARKING STITCHER of RCA, mild LAD disease and 99% LCX which got ADITYA to LCX. Echo 06/10 showed LVEF 40%. He has saw me in CHF clinic 03/11 and is about four months overdue. He reports he started to feel bad 1-2 days ago with MAURER at 50ft, nausea and weight gain. His BP has been high at home. Denies CP, palpitations, PND or symptoms like his previous inferior STEMI two years ago. He lives in [facility] by himself in a cabin. IMP: 1)CHF with suboptimally controlled BP. PLAN: 1)lasix 40mg IV daily 2)Coreg 6.25mg PO BID 3)lisinopril 20mg Po qam. 4)echo 5)Lexiscan cardiolite in AM (12/25) Thanks. Will follow with you. 12/24/18 15:16 Objective: Vital Signs Temp Pulse Resp BP Pulse Ox 36.8 C 77 18 154/99 H 95 12/24/18 13:34 12/24/18 13:34 12/24/18 13:34 12/24/18 13:34 12/24/18 13:34 12/23/18 12/24/18 12/25/18 05:59 05:59 05:59 Intake Total 1000 Balance 1000 ICD10 Worksheet Patient Problems: Problems Problem Status Onset STEMI (ST elevation myocardial infarction) Acute Spell of dizziness Acute
[2018-12-24] MEDS: LISINOPRIL 20 MG TAB PO SCH (16:14)
[2018-12-24] MEDS: FUROSEMIDE 40 MG/4 ML VIAL IVP SCH (16:14)
--- NOTE | 2018-12-24 16:30 | GHP ---
[f rep st] HISTORY AND PHYSICAL DATE OF ADMISSION: 12/24/2018 CHIEF COMPLAINT: Nausea with chest pressure. HISTORY OF PRESENT ILLNESS: Patient is a 63-year-old male, who resides in [place] [facility], presents today to the emergency room with complaints of nausea with lightheadedness, and dyspnea for the last 24 hours. He states that he has had some retching, but no real vomiting. He states that he has symptoms similar to the symptoms he had when he had his previous MT. He feels dizzy and lightheaded with continued nausea. PAST MEDICAL HISTORY: 1. Cardiac arrest with ST-elevation myocardial infarction in December 2016. 2. Cardiac stenting. 3. Congestive heart failure. 4. Hypertension. 5. Chronic ischemic systolic congestive heart failure. 6. Deafeuey-cc-dddxf alcohol use. 7. Hyperlipidemia. 8. Medical noncompliance. PAST SURGICAL HISTORY: Patient denies. REVIEW OF SYSTEMS: The patient denies any other complaints other than noted in the HPI. A comprehensive 12-point review of systems has been done. FAMILY HISTORY: Reviewed and noncontributory. SOCIAL HISTORY: The patient consumes alcohol on a daily basis, unclear of the amount of consumption. He lives in [place] [facility] in a cabin. ALLERGIES: None. PHYSICAL EXAM: GENERAL: The patient is alert, in no acute distress. VITAL SIGNS: Afebrile at 36.8, pulse is 77, respiratory rate is 18, blood pressure is 154/99, saturating 95% on room air. HEENT: Normocephalic, atraumatic. Mucosal membranes are moist. Pupils equal, round, reactive to light. RESPIRATORY: Lungs are clear to auscultation bilaterally. No rhonchi or wheezes appreciated. Diminished in the bases. CARDIOVASCULAR: S1, S2. GASTROINTESTINAL: Abdomen: Bowel sounds are positive. Soft and nontender. There is no guarding or rigidity noted. EXTREMITIES: Within normal limits. There is no clubbing or cyanosis appreciated. NEUROLOGIC: The patient is focally intact. SKIN: Without rashes or lesions. LABORATORY: BNP is 3460. Hemoglobin 18.1, hematocrit 51.5. ASSESSMENT/PLAN: Mr. Fairchild is a 63-year-old male, who presents to the emergency room with complaints of nausea with chest pressure. He will be admitted to the hospital for further evaluation. EKG and troponin have been performed during this hospital course thus far. He does have a history of coronary artery disease with an inferior ST-elevation myocardial infarction, as well as hypertension and chronic ischemic systolic congestive heart failure. I did request a consultation from Dr Maurer, the patient's cms expert. We will continue supportive management during this hospitalization. He will receive diuretic medications, as well as echocardiogram and Lexiscan. /[id number]/MODL MTDD
[2018-12-24] MEDS: CARVEDILOL 6.25 MG TAB PO SCH (18:01)
[2018-12-24] MEDS: ATORVASTATIN CALCIUM 10 MG TAB PO SCH (20:22)
--- NOTE | 2018-12-24 20:47 | GCON ---
[f rep st] CONSULTATION CARDIOLOGY CONSULTATION DATE OF CONSULTATION: 12/24/2018 REASON FOR CONSULTATION: Evaluate gentleman with elevated blood pressure, worsening dyspnea on exert ion and nausea. HISTORY OF PRESENT ILLNESS: The patient is a 63-year-old gentleman with the following cardiac and me dical problems: He had an inferior OH in December of 2016, and had a drug-eluting stent to the left circu mflex. He also has hypertension and chronic ischemic cardiomyopathy with an LVEF of 40% and daily mo derate to heavy alcohol use with hyperlipidemia and medical noncompliance. His last heart catheteriz ation during his OH in December of 2016, demonstrated a chronically occluded right coronary artery, mild L AD plaque, and a 99% left circumflex lesion which was stented open. An echo in May of 2017, quentin coopertrated an LVEF of 40%. I last saw him in clinic in February of 2018, and he was about 4 months overdue to see me. [place] 1 to 2 days of worsening shor tness of breath at 50 feet, systolic blood pressure readings of 170/90, and nausea. He reports no ch est pain, heart palpitations, or syncope. He feels his weight is up, but he is not sure how much. H e reports he is still taking his prescribed medicines. He is not having any symptoms like when he abad d his inferior STEMI. PAST MEDICAL HISTORY: Coronary artery disease, hypertension, chronic ischemic cardiomyopathy with an LVEF of 40%, moderate to heavy alcohol use, hyperlipidemia, and medical noncompliance. PAST SURGICAL HISTORY: Drug-eluting stent to the left circumflex in December of 2016. HOME MEDICATIONS: Aspirin 81 mg per day, Coreg 3.125 mg b.i.d., lisinopril 10 mg per day, and Cresto r 10 mg per day. ALLERGIES: No known drug allergies. SOCIAL HISTORY: The patient lives by himself in a cabin in the [facility] [place], [place]. He has 2 to 4 drinks per night, mostly wine or meme. He does not smoke. FAMILY HISTORY: Positive for premature coronary artery disease. REVIEW OF SYSTEMS: The patient reports no recent fevers, chills, or GI bleed symptoms, such as hemat emesis, melena, or bright red blood per rectum. Rest of 10-point review of systems is negative. PHYSICAL EXAM: VITAL SIGNS: Afebrile, pulse 78 and regular, blood pressure 154/99, respirations 20. GENERAL: A normal-appearing gentleman in no acute distress without chest pain or using accessory r espiratory muscles. EYES: Pupils equal and reactive to light. ENT: Oral mucosa with no cyanosis. NECK: Jugular venous pressure to 8 cm. Carotid pulses 2+ bilaterally. LUNGS: Clear to auscultati on bilaterally without rales, rhonchi, or wheezing. HEART: Normal PMI. Regular rate and rhythm wit h 1/6 nonradiating systolic murmur and no S3. ABDOMEN: Mildly distended. No guarding or rebound. EXTREMITIES: 2+ peripheral pulses, including femoral and pedal pulses. No edema noted. MUSCULOSKEL ETAL: No scoliosis. NEURO: Normal affect and mood. NECK: No nuchal rigidity. SKIN: No bleeding or cyanosis. LABS: White count 9.2; hematocrit 52; platelets 288,000. Sodium 136, potassium 4.2, chloride 99, bi carb 22, BUN 15, creatinine 1.2, glucose 119. LFTs within normal limits. NT proBNP level 3460 (prev ious one 1000). Troponin 0.06. IMPRESSION: 63-year-old gentleman with worsening shortness of breath and nausea and uncontrolled hig h blood pressure. He appears mildly hypervolemic on exam, mostly caring fluid in his abdomen. I do not think he is having a new heart attack. PLAN: 1. Would start on Lasix 40 mg IV daily. 2. Will increase his Coreg to 6.25 mg b.i.d. 3. Will increase his lisinopril to 20 mg per day. 4. Will get an echocardiogram to re-evaluate LV function. 5. Will get a Lexiscan Cardiolite stress test in the morning to make sure he is not having any new i schemia in particular in his anterior distribution. He may have some ischemia in his inferior distri bution as he has a known chronically occluded right coronary artery. Thank you for allowing me to participate in the care of this patient. I will follow along closely wi th you during his hospitalization. /[id number]/MODL
[2018-12-24] MEDS: FLUTICASONE/SALMETER 250/50MCG DISKUS IH SCH (21:22)
[2018-12-24] MEDS: ALBUTEROL 60 PUFFS/8 GM MDI IH PRN (21:23)
[2018-12-25] MEDS: CARVEDILOL 6.25 MG TAB PO SCH ×2 (08:05→18:34)
[2018-12-25] MEDS: ASPIRIN 81 MG CHEWABLE TAB PO SCH (08:05)
[2018-12-25] MEDS: LISINOPRIL 20 MG TAB PO SCH (08:05)
[2018-12-25] MEDS: FLUTICASONE/SALMETER 250/50MCG DISKUS IH SCH ×2 (08:12→22:39)
[2018-12-25] MEDS: ALBUTEROL 60 PUFFS/8 GM MDI IH PRN (08:13)
[2018-12-25] MEDS ORDERED: ASPIRIN 325 MG TAB PO SCH (09:00)
[2018-12-25] MEDS ORDERED: LISINOPRIL 10 MG TAB PO SCH (09:00)
[2018-12-25] MEDS ORDERED: REGADENOSON 0.4 MG/5 ML SYR IVP ONE (09:37)
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
[2018-12-25] MEDS: FUROSEMIDE 40 MG/4 ML VIAL IVP SCH (11:31)
--- NOTE | 2018-12-25 13:43 | ECHO ---
[email or web address] [address] [address] Main: [phone] Echocardiography Examination Transthoracic Name: VALERI BRUCE MR#: [id number] Study Date: 12/25/2018 Study Time: 11:25 AM Date of : 1955 Age: 63 year(s) Height: 162.6 cm (64 in.) Weight: 73.94 kg (163 lb.) BSA: 1.79 m2 Gender: Male Examination: Echo Contrast: Image Quality: Adequate Rhythm: Normal sinus rhythm Heart Rate: 65 bpm BP: 137 mmHg/79 mmHg Indication: CHF, Dyspnea on exertion, HTN, Coronary artery disease, Myocardial Infarction Procedure Staff Referring Physician: Genetic Physician: Sonja Wilson [facility] Reading Physician: Alok Catalan MD Requesting Provider: Ordering Physician: Alok Catalan MD Indication: CHF, Dyspnea on exertion, HTN, Coronary artery disease, Myocardial Infarction Measurements Chambers AV/MV Label Value Normal Value Label Value Normal Value LVOT Vmax 1 m/s (0.7m/s - 1.1m/s) AV PGmax 8 mmHg LVOTd 1.9 cm (1.9cm - 2.1cm) AV Vmax 1.44 m/s LVDd, 2D 3.8 cm (4.2cm - 5.9cm) KECIA (Vmax) 2 cm2 LVDs, 2D 3 cm (2.1cm - 4cm) MV E Vmax 0.63 m/s IVSd, 2D 0.9 cm (0.6cm - 1.1cm) MV A Vmax 0.94 m/s LVPWd, 2D 0.9 cm (0.6cm - 1cm) MV E/A 0.67 LVEF, BP 42 % (55% - 70%) MV E/E' lateral 5.6 LVEF, 2D 40 % (54% - 74%) MV E/E' septal 15.3 (0.45 - 1.25) RVDd, 2D 2.8 cm (1.9cm - 3.8cm) MV DT 222 ms TAPSE 1.7 cm MV E' septal 0.04 m/s LA Volume, BP 36 ml (18ml - 58ml) MV E' lateral 0.11 m/s LADs, 2D 3 cm (3cm - 4cm) MV E/E' mean 8.4 LAESV index, BP 20.1 ml/m2 MV E' mean 0.08 m/s RA Area 11 cm2 TV/PV Additional Vessels Label Value Normal Value Label Value Normal Value RA Pressure 5 mmHg AoAsc 3 cm RVSP 27 mmHg AoRoot, 2D 2.7 cm (1.4cm - 2.6cm) TR Pmax 22 mmHg TR Vmax 2.35 m/s Patient: VALERI BRUCE Study Date: 12/25/2018 Page 1 of 3 11:25 AM PV PGmax 5 mmHg PV Vmax, Caliper 1.09 m/s (0.6m/s - 0.9m/s) Conclusions Left Ventricle: CONCLUSIONS:1)Mildly reduced LV systolic function with a LVEF of 42% and focal inferior-lateral and apical moderate hypokinesis.2)Mild diastolic dysfunction noted.3)Trivial MR without MV prolapse.4)Mild TR with estimated normal PA pressures. Findings Left Ventricle: Left ventricle is normal in size. CONCLUSIONS: 1)Mildly reduced LV systolic function with a LVEF of 42% and focal inferior-lateral and apical moderate hypokinesis. 2)Mild diastolic dysfunction noted. 3)Trivial MR without MV prolapse. 4)Mild TR with estimated normal PA pressures. EF evaluated by EF (biplane Akhtar's). The ejection fraction, measured by Simpsons method, is 42 %. Grade I Diastolic Dysfunction. Right Ventricle: Normal size right ventricle. Right ventricular systolic function is normal. Left Atrium: The left atrium is normal in size. Right Atrium: The right atrium is normal in size. Mitral Valve: Mitral valve appears structurally normal. Trivial mitral regurgitation. No mitral valve stenosis. Aortic Valve: The aortic valve is structurally normal and trileaflet. No aortic valve regurgitation. There is no aortic stenosis. Aortic leaflets exhibit mild calcification. Tricuspid Valve: Tricuspid valve leaflets are structurally normal. Mild tricuspid regurgitation. Right Ventricular systolic pressure is measured at 27 mmHg. Pulmonary artery pressure normal. Pulmonic Valve: Pulmonic valve is poorly visualized. No pulmonic valve regurgitation is evident. Aorta: The aortic root size in 2D measures 2.7 cm. The aortic root exhibits normal size. The ascending aorta measures 3.0 cm. Ascending aorta is normal in size. Aorta Measurements AoRoot, 2D is 2.7 cm. IVC: The inferior vena cava is poorly visualized. Pericardium: No pericardial effusion. Exam Details Procedure Ordered: Echo Procedure Status: Routine study Image Quality: Adequate Facility Location: Cardiac Echo 1 (No Signature Object) Patient: VALERI BRUCE Study Date: 12/25/2018 Page 2 of 3 11:25 AM Patient: VALERI BRUCE Study Date: 12/25/2018 Page 3 of 3 11:25 AM [id number]
--- NOTE | 2018-12-25 14:09 | SOAPPROG ---
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 He is feeling better except a little dizzy. He has walked around room but not in hallway yet. Denies CP, palpitations, syncope, PND or shortness of breath. Today lexiscan cardiolite with LVEF 34%. old inferior lateral [place] and no new ischemia. Echo today LVEF 42% with inferior moderate hypokinesis, trivial MR, and mild TR with estimated normal PA pressures. His BP is better controlled and he appears euvolemic and same weight as last clinic weight in 2018. REC: 1)stop IV lasix 2)start Lasix 20mg PO qam. 3)rest of meds without changes. 4)ambulate in hallways 5)home tomorrow [place]. 6)f/u CHF-[facility] in ten days with same day labs (BMP). My office will schedule. 12/25/18 14:06 Subjective: feels better. No longer short of breath. Denies CP, palpitations or PND. A little dizzy. Objective: Vital Signs Temp Pulse Resp BP Pulse Ox 36.8 C 64 18 137/79 H 97 12/25/18 07:22 12/25/18 07:22 12/25/18 07:22 12/25/18 07:22 12/25/18 07:22 Laboratory Results 12/25/18 12:00 12/24/18 12/25/18 12/26/18 05:59 05:59 05:59 Intake Total 1000 Balance 1000 Physical Exam - Physical Exam General Appearance: alert EENT: normal ENT inspection Neck: non-tender Respiratory: lungs clear Cardiac/Chest: regular rate, rhythm, systolic murmur (1/6 NICHOLAS heard), No gallop , No JVD Peripheral Pulses: 2+: carotid (R), carotid (L), femoral (R), femoral (L), dorsalis-pedis (R), dorsalis-pedis (L) Abdomen: non-tender, No guarding, No rebound Skin: warm/dry Extremities: No pedal edema Neuro/Psych: alert ICD10 Worksheet Patient Problems: Problems Problem Status Onset STEMI (ST elevation myocardial infarction) Acute Spell of dizziness Acute
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
--- NOTE | 2018-12-25 18:29 | HOSPPROG ---
Hospitalist Progress Note Assessment/Plan: ASSESSMENT/PLAN: CP, resolved CAD, h/o stent HTN Isch CMP sCHF, not in exacerbation H/o med noncompliance -s/p stress test - no reversible ischemia. -Pt to be DC'd to home tomorrow when he has a ride back home to [place]. Status: obs Disposition: medtele ____ SUBJECTIVE: Saw patient after his stress test. He was feeling well. OBJECTIVE: Physical Exam: General: The patient is an overweight male who is alert and in no acute distress. HEENT: normocephalic, extraocular movements intact, conjunctivae clear. Mucous membranes moist. Neck: trachea midline, no visible masses. CV: +S1/S2, RRR, no MRG. Resp: unlabored, CTAB no RRW. Abd: soft and nondistended. Musculoskeletal: Normal muscle tone/bulk. Neuro: cranial nerves II - XII grossly intact. Intact gross motor and sensory function. Psych: Over mood and appropriate affect. Skin: No pallor. No petechiae. Heme/lymph: No peripheral edema at bilateral lower extremities. Labs/Imaging/Other Tests: Personally reviewed/interpreted. Objective: Vital Signs Temp Pulse Resp BP Pulse Ox 36.4 C 65 18 126/80 H 97 12/25/18 16:00 12/25/18 16:00 12/25/18 16:00 12/25/18 16:00 12/25/18 16:00 Laboratory Results 12/25/18 12:00 12/24/18 12/25/18 12/26/18 05:59 05:59 05:59 Intake Total 1000 1450 Balance 1000 1450 - Time Spent With Patient Time Spent with Patient: greater than 35 minutes Time Spent with Patient: Greater than 35 minutes spent on this patients care, greater than 50% of time spent counseling, educating, and coordinating care regarding the above mentioned plan. ICD10 Worksheet Patient Problems: Problems Problem Status Onset STEMI (ST elevation myocardial infarction) Acute Spell of dizziness Acute
[2018-12-25] MEDS: FAMOTIDINE 20 MG TAB PO SCH (18:37)
[2018-12-25] MEDS: ATORVASTATIN CALCIUM 10 MG TAB PO SCH (20:48)
[2018-12-26 08:43] VITALS: BP 113/85
[2018-12-26] MEDS: FLUTICASONE/SALMETER 250/50MCG DISKUS IH SCH (08:50)
[2018-12-26] MEDS ORDERED: FUROSEMIDE 20 MG TAB PO SCH (09:00)
[2018-12-26] MEDS: CARVEDILOL 6.25 MG TAB PO SCH (09:09)
[2018-12-26] MEDS: ASPIRIN 81 MG CHEWABLE TAB PO SCH (09:10)
[2018-12-26] MEDS: FAMOTIDINE 20 MG TAB PO SCH (09:10)
[2018-12-26] MEDS: LISINOPRIL 20 MG TAB PO SCH (09:10)
--- NOTE | 2018-12-26 10:39 | ASMTDCNOTE ---
Case Management Discharge Discharge Order Complete? Answers: Yes Patient to Obtain Answers: Independently Medications Transportation Arranged Answers: Family/Friends Discharge Comments Notes: 12/26/2018 Case Management Note Met w/pt to discuss dispo. Pt has neighbor Yoon coming to transport home. Pt in contact with Steffi Mason returned case inspector in [facility] [phone]. Steffi provided contact info to pt for Caitlin [place] [phone] for assistance with housing. Left VM for both Steffi and Caitlin. Case Management d/c poc: independent with follow up as directed. Date Signed: 12/26/2018 10:39 AM Electronically Signed By:Radha Maldonado RN
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
--- NOTE | 2018-12-30 20:20 | CPEKG ---
Test Reason : OPEN Blood Pressure : / mmHG Vent. Rate : 065 BPM Atrial Rate : 065 BPM P-R Int : 173 ms QRS Dur : 106 ms QT Int : 416 ms P-R-T Axes : 067 049 -35 degrees QTc Int : 433 ms Sinus rhythm Inferior infarct, age indeterminate Confirmed by Max Chopra ([id number]) on 12/30/2018 8:19:41 PM Referred By: Harry Fan Confirmed By:Max Chopra
== END 2018-12-26 14:25 | disposition home or self-care (01) ==
LOC: EDUNIT# → F2W 13:40
PROVIDERS: ADMIT Internal Medicine; ATTEND Internal Medicine
DX: R55 Syncope and collapse (principal); R06.02 Shortness of breath; R11.0 Nausea; I50.22 Chronic systolic (congestive) heart failure; I25.2 Old myocardial infarction; E78.5 Hyperlipidemia, unspecified; F10.10 Alcohol abuse, uncomplicated; Z95.5 Presence of coronary angioplasty implant and graft; Z86.74 Personal history of sudden cardiac arrest; Z91.19 Patient's noncompliance with other medical treatment and regimen
CPT/HCPCS: 71046; 78452; 93005; 93017; 93306; 96374; 96376; 99285; A9500; G0378; 84484-ER; J1940; J2785